=== PATIENT | female | born 1950 | race Caucasian/White ===

== ENCOUNTER 2025-09-06 08:23 | Outpatient (AMB) | payer MEDICARE, SELFPAY ==
--- OUTSIDE RECORDS SUMMARY | 2025-09-04 09:30 | XMS_ITS | Encounter Summary ---
Author Organization [facility] Address [address] [place] [address] Care Team Providers Care Mixing Picker Tender Name Role Phone Belem Diaz MD Primary Care Provider [phone] Gosia Gonzalez DO Unavailable Shruti Hu RN Unavailable Carson Vang MD Unavailable [phone] System, Provider Not In Unavailable Unavaila ble Reason for Visit * Reason Comments Other Dysphonia Encounter Details Date Type Department Care Team (Late st Contact Info) Description 09/04/2025 9:30 AM EST Office Visit [facility] [place] [address] [place] [address] Jimmie Boswell MD [address] [place] [address] Dysphonia (Primary Dx); Vocal cord [...] the original note were not included. [address] [facility] [address] Phone: [phone] Date of Encounter: 09/04/2025 History of Present [...] any meaningful improvement in her symptoms. Her printer maintainer Rx'd prednisone x 10 days back in [...] due to gag Procedures Flexible Laryngeal Videostroboscopy (19572): Laryngeal videostroboscopy is indicated to assess laryngeal [...] implementation of behavioral coughing/throat clearing suppression strategies. PERFUME COMPOUNDER voice evaluation and voice therapy are medically necessary for roman catholic of laryngeal function. She had a session in tandem with today's visit. She will follow up with me in about 3 week(s). All questions were answered, and the patient is in agreement with the above. Jimmie Boswell M.D. Laryngology [facility] documented in this encounter Plan of Treatment Not on file documented as of this encounter Goals Goal Patient Goal Type Associated Problems Recent Progress Patient-Stated? Author ST LTG 1 Speech Therapy Savita Raza, [facility]-PERFUME COMPOUNDER Note: Patient and clinician will facilitate changes in vocal function in order to restore functional use of voice for daily occupational, social, and emotional demands. Patient will maximize efficiency of the vocal mechanism relative to existing laryngeal disorder through coordinating subsystems of voice within 12 weeks as evidenced by patient report and PERFUME COMPOUNDER observations. Patient will improve coordination of respiration and phonation for efficient vocal production at a conversational level. Patient will implement and adhere to vocal hygiene protocols on a daily basis, including the elimination of phonotraumatic behaviors. ST STG 1 Speech Therapy Savita Raza [facility]-PERFUME COMPOUNDER Note: Patient will complete SOVT exercises and/or [...] laryngitis documented in this encounter Care Teams Mixing Picker Tender Relationship Specialty Start Date End Date Belem Diaz MD [address] [place] [address] PCP - General Internal Medicine 02/03/24 Gosia Gonzalez DO [address] [place] [address] [place] [address] Physician Gastroenterology 06/29/24 Shruti Ocasio RN [address] [place] [address] Nurse Navigator Surgery, Neurosurgery 04/18/25 Carson Vang MD [address] [address] Surgery, Neurosurgery 05/28/25 System, Provider Not In [address] [place] [address] Pulmonary Disease 05/28/25 documented as of this encounter
--- OUTSIDE RECORDS SUMMARY | 2025-09-04 10:00 | XMS_ITS | Encounter Summary ---
Author Organization [facility] Address [address] [place] [address] Care Team Providers Care Event Representative Name Role Phone Belem Diaz MD Primary Care Provider [phone] Gosia Gonzalez DO Unavailable Shruti Hu RN Unavailable [phone] Carson Vang MD Unavailable [phone] System, Provider Not In Unavailable Unavaila ble Reason for Visit * Reason Comments ST Evaluation * Evaluation and Treatment (Elective) - Authorized Specialty Diagnoses / Procedures Referred By Contact Referred To Contact Speech-Language Pathologist / Rehabilitation Diagnoses Dysphonia Khalida Boswell MD [address] [place] [address] Phone: tel:[phone] fax:[phone] [facility] [address] [place] [address] Phone: tel: fax: Referral ID Status Reason Start Date Expiration Date Visits Requested Visits Authorized [id number] Authorized Support Services 09/04/2025 10/30/2025 200 200 Encounter Details Date Type Department Care Team (Latest Contact Info) Description 09/04/2025 10:00 AM EST Evaluation [facility] [address] [place] [address] Khalida Boswell MD [address] [place] [address] Savita Boswell CCC-DETECTIVE LIEUTENANT CT Dysphonia (Primary Dx); Vocal fold edema; Chronic fungal laryngitis Social History Tobacco [...] PM EDT documented as of this encounter Miscellaneous Notes * Evaluation/ Progress Note - PRABHJOT RiceDETECTIVE LIEUTENANT - 09/04/2025 10:47 AM EST Speech Therapy Initial Evaluation Diagnoses ICD-10-CM 1. Dysphonia R49.0 2. 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 Chronic fungal laryngitis J37.0 B49 Interpretation Services: Communication Needs - TueSeptember 04, 2025 Row Name 0914 Communication Needs What is the patient's preferred language? 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 N Subjective - TueSeptember 04, 2025 Row Name Evaluation from 09/04/2025 in [facility] Subjective History Are you receiving any services at your home? no History of Present Illness Patient is a 75 y.o. female referred for voice evaluation by KHALIDA Hurt. She presents with complaints of persistent hoarseness which began suddenly about 3 months ago in association with a bad coughing illness. Patient also reported the following complaints/associated symptoms: vocal fatigue with prolonged use, coughing. She reports voice use, coughing as exacerbating factors and a cough suppressant alleviating factors. Smokin packs/day - quit in 1979. Reflux: yes - no longer using PPI as it stopped working. Date of Onset May 2025 Have you fallen in past year? 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 no Oral/Motor - TueSeptember 04, 2025 Row Name Evaluation from 09/04/2025 in [facility] Oral/Motor Labial ROM Within Functional Limits Labial Symmetry Within Functional Limits Labial Strength Within Functional Limits Labial Sensation Within Functional Limits Lingual ROM Within Functional Limits Lingual Symmetry Within Functional Limits Lingual Strength Within Functional Limits Lingual Sensation Within Functional Limits Velum Within Functional Limits Mandible Within Functional Limits Facial ROM Within Functional Limits Facial Symmetry Within Functional Limits Facial Strength Within Functional Limits Facial Sensation Within Functional Limits Dentition Adequate Dysarthria No Apraxia None present Intelligibility Intelligible Vocal Quality Exceptions to WFL Harsh Moderate Hoarse Moderate Voice - TueSeptember 04, 2025 Row Name Evaluation from 09/04/2025 in [facility] Voice History Chief Complaint Hoarseness, vocal fatigue, intermittent cough Onset of Present Illness Chronic;Acute Onset Sudden worsening in May though there had been some voice issues prior to then - recalls 2 previous sessions of voice therapy a few years ago Contributing Past Medical Hx Acid Reflux / GERD;Head / Neck Surgery Medications Contributing Yes Vocal Demands 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 Today's evaluation results are consistent with dx of moderate, severe dysphonia c/b roughness, strain secondary to vocal fold edema and chronic fungal laryngitis. CAPE-V -Overall score 09/04/2025: 53 -Quality: rough, strained, intermittent breaks -Volume: appropriate for age and gender identity -Pitch: appropriate for age and gender identity -Flexibility: diminished -Habitual respiratory pattern: breath holding Patient was modestly stimulable for improvement with use of confidential voice strategies, resonance targets higher than usual for her, and cough/throat clearing reduction strategies. Today's evaluation determined it is necessary for the patient to initiate speech language pathologyservices focusing on voice to improve overall vocal function in daily life. Based on patient's motivation, stimulability in today's session, and the patient's ability to attend sessions and complete a HEP, prognosis for improvement is good/fair. Recommend 4-8 sessions of voice/speech therapy over 12 weeks with a speech-language pathologist to optimize glottal postures for improved vocal function,vocal efficiency, and ease of phonation. Patient-reported outcomes Voice Handicap Index (VHI, Martins et al., 1997) Part I-F My voice makes it difficult to hear me. 2 People have difficulty understanding me in a noisy room. 2 My family has difficulty hearing me when I call them throughout the house. 0 I use the phone less often than I would like to. 3 I tend to avoid groups of people because of my voice. 3 I speak with friends, neighbors, or relatives less often because of my voice. 3 People ask me to repeat myself when speaking [id number]. 2 My voice difficulties restrict my personal and social life. 4 I feel left out of conversations because of my voice. 1 My voice problem causes me to lose income. 0 SUBTOTAL 20 Part II-P I run out of air when I talk. 1 The sound of my voice varies throughout the day. 3 People ask, What's wrong with your voice? 4 My voice sounds creaky and dry. 4 I feel as though I have to strain to produce voice. 4 The clarity of my voice is unpredictable. 4 I try to change my voice to sound different. 3 I use a great deal of effort to speak. 3 My voice is worse in the evening. 4 My voice gives out on me in the middle of speaking. 2 SUBTOTAL 32 Part III-E I am tense when talking to others because of my voice. 3 People seem irritated with my voice. 0 I find other people don't understand my voice problem. 2 My voice problem upsets me. 4 I am less outgoing because of my voice problem. 4 My voice makes me feel handicapped. 4 I feel annoyed when people ask me to repeat. 2 I feel embarrassed when people ask me to repeat. 2 My voice makes me feel incompetent. 0 I am ashamed of my voice problem. 2 SUBTOTAL 23 TOTAL 75 The VHI score is 75/120 indicating that they feel severely impacted by function of voice. Reflux Symptom Index Situation Response (0-5) 0 = No Problem 5 = Severe Problem Hoarseness or problem with your voice 5 Clearing your throat 5 Excess throat mucous or postnasal drip 5 Difficulty swallowing food, liquids or pills 1 Coughing after you ate or after lying down 3 Breathing difficulties or choking episodes 2 Troublesome or annoying cough 4 Sensations or something sticking in your throat 1 Heartburn, chest pain, indigestion, or stomach acid coming up 5 Total = 31 (RSI > 13 may be indicative of significant reflux disease) POC Details Precautions none Barriers to therapy no Special communication needs no Does patient require additional social and vocational services? no Prognosis Good DETECTIVE LIEUTENANT Interventions Voice;HEP;Patient Education Frequency 2x month Duration 12 weeks Goals Patient was involved in setting goals. Patient is aware of these goals, risks, benefit of thetreatment and alternatives along with being aware and understanding of the diagnosis and prognosis.The Patient agrees with the goals and treatment plan Certification start date 09/04/25 Certification end date 11/27/25 Goals (5 Years of Data) Speech Therapy ST LTG 1 Notes Patient and clinician will facilitate changes in vocal function in order to restore functional use of voice for daily occupational, social, and emotional demands. Patient will maximize efficiency of the vocal mechanism relative to existing laryngeal disorder through coordinating subsystems of voice within 12 weeks as evidenced by patient report and DETECTIVE LIEUTENANT observations. Patient will improve coordination of respiration and phonation for efficient vocal production at a conversational level. Patient will implement and adhere to vocal hygiene protocols on a daily basis, including the elimination of phonotraumatic behaviors. ST STG 1 Notes Patient will complete SOVT exercises and/or resonant-focused exercises 3-5x daily to strengthen andbalance the intrinsic laryngeal musculature and maximize glottic [...] larynx breathing protocols and voice hygiene protocols jethro daily basis. Treatment Performed: Interventions - TueSeptember 04, 2025 Row Name Evaluation from 09/04/2025 in [facility] DETECTIVE LIEUTENANT Intervention DETECTIVE LIEUTENANT Interventions Voice Home Exercise Program initiated Voice Voice Justification Pt would benefit from skilled voice therapy to improve vocal hygiene, respiratory support, and learn strategies to enhance functional voicing for vocational purposes. Vocal Intensity Training Pt provided with voice strategies to reduce volume/impact forces of the vocal folds through strategies to lift vocal resonance and pitch slightly. She noted this to feel easier in her throat during phonatory tasks. Vocal Hygiene Provided strategies for reducing coughing and throat clearing including little sip/hard swallow and open laryngeal breathing strategies. Vocal Function Exercise SOVT straw phonation noted to be moderately helpful in finding a slightly lifted voice resonance documented in this encounter Plan of Treatment Scheduled Referrals Name Type Priority Associated Diagnoses Order Schedule Ambulatory referral to Speech/Voice Therapy Outpatient Referral Routine Dysphonia Ordered: 08/29/2025 documented as of this encounter Goals Goal Patient Goal Type Associated Problems Recent Progress Patient-Stated? Author ST LTG 1 Speech Therapy No Savita Boswell CCC-DETECTIVE LIEUTENANT Note: Patient and clinician will facilitate changes in vocal function in order to restore functional use of voice for daily occupational, social, and emotional demands. Patient will maximize efficiency of the vocal mechanism relative to existing laryngeal disorder through coordinating subsystems of voice within 12 weeks as evidenced by patient report and DETECTIVE LIEUTENANT observations. Patient will improve coordination of respiration and phonation for efficient vocal production at a conversational level. Patient will implement and adhere to vocal hygiene protocols on a daily basis, including the elimination of phonotraumatic behaviors. ST STG 1 Speech Therapy Savita Raza, [facility]-DETECTIVE LIEUTENANT Note: Patient will complete SOVT exercises and/or [...] encounter Visit Diagnoses Diagnosis Dysphonia- Primary Vocal fold edema Edema of larynx Chronic fungal laryngitis documented in this encounter Care Teams Event Representative Relationship Specialty Start Date End Date Belem Diaz MD [address] [place] [id number] PCP - General Internal Medicine 02/03/24 Gosia Gonzalez DO [address] [place] [address] [place] [address] Physician Gastroenterology 06/29/24 Shruti Ocasio RN [address] [place] [address] Nurse Navigator Surgery, Neurosurgery 04/18/25 Carson Vang MD [address] [place] [id number] Surgery, Neurosurgery 05/28/25 System, Provider Not In [address] [place] [id number] Pulmonary Disease 05/28/25 documented as of this encounter
--- OUTSIDE RECORDS SUMMARY | 2025-09-04 13:40 | XMS_ITS | Encounter Summary ---
Author Organization [facility] Address [address] [place] [address] Care Team Providers Care Carpenter And Joiner Name Role Phone Belem Diaz MD Primary Care Provider [phone] Gosia Gonzalez DO Unavailable Shruti Hu RN Unavailable Carson Vang MD Unavailable [phone] System, Provider Not In Unavailable Unavaila ble Reason for Referral * Rehabilitation (Routine) - Authorized Specialty Diagnoses / Procedures Referred By Contac t Referred To Contact Physical Therapist Diagnoses S/P cervical spinal fusion Dina Dee, PA-C [address] [place] [address] [place] [address] Phone: tel: fax: Referral ID Status Reason Start Date Expiration Date Visits Requested Visits Authorized [id number] Authorized Support Services 09/04/2025 09/05/2026 1 1 Scheduling Instructions [facility] in [facility] [address] [facility] [address] [place], [place] [address] Question Answer Is this referral for an initial evaluation or additional visits? Initial evaulation Is this related to a Neurological Condition? Yes Is this referral for PT or OT? PT - cervical radiculopathy s/p ACDF C4-5. Work on BUE strengthening and biomechanics Comments S/p C4-5 ACDF [facility] PT in [address] [place] [address] Reason for Visit * Reason Comments Post-op Encounter Details Date Type Department Care Team (Late st Contact Info) Description 09/04/2025 1:40 PM EST Office Visit [facility] [id number] [address] [address] Dina Dee PA-C 85 [facility] [address] [place] [address] S/P cervical spinal fusion (Primary [...] ordered for 09/17/25 PT outpatient ([facility]) Advised to increase robaxin 750 mg 4 [...] times a day. 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 [...] Abduction (T1 - 5th digit) 5/5 Hand Proofer Black And White (C8) 5/5 Elbow extension (C7) 5/5 Elbow flexion / wrist extension (C6) 5/5 Deltoid Abduction (C5) LUE 5/5 Finger Abduction (T1 - 5th digit) 5/5 Hand Proofer Black And White (C8) 5/5 Elbow extension (C7) 5/5 Wrist [...] patient the following plan. 1- Refer to [facility] for CT guided left SI joint [...] in this encounter Plan of Treatment Scheduled Orders Name Type Priority Associated Diagnoses Orde r Schedule XR Cervical spine 2 or 3 views Imaging Routine S/P cervical spinal fusion Expected: 09/03/2025, Expires: 09/03/2026 Scheduled Referrals Name Type Priority Associated Diagnoses Orde r Schedule Amb Referral to Therapy Services (PT or OT) Outpatient Referral Routine S/P cervical spinal fusion Ordered: 09/04/2025 documented as of this encounter Goals Goal Patient Goal Type Associated Problems Recent Progress Patient-Stated? Author ST LTG 1 Speech Therapy Savita Raza CCC-[employer] Note: Patient and clinician will facilitate changes in vocal function in order to restore functional use of voice for daily occupational, social, and emotional demands. Patient will maximize efficiency of the vocal mechanism relative to existing laryngeal disorder through coordinating subsystems of voice within 12 weeks as evidenced by patient report and [employer] observations. Patient will improve coordination of respiration and phonation for efficient vocal production at a conversational level. Patient will implement and adhere to vocal hygiene protocols on a daily basis, including the elimination of phonotraumatic behaviors. ST STG 1 Speech Therapy Savita Raza CCC-[employer] Note: Patient will complete SOVT exercises and/or [...] as of this encounter Visit Diagnoses Diagnosis S/P cervical spinal fusion- Primary Arthrodesis status documented in this encounter Care Teams Carpenter And Joiner Relationship Specialty Start Date End Date Belem Diaz MD [address] [place] [address] PCP - General Internal Medicine 02/03/24 Gosia Gonzalez DO [address] [place] [address] [place] [address] Physician Gastroenterology 06/29/24 Shruti Ocasio RN 80 [place] [address] Nurse Navigator Surgery, Neurosurgery 04/18/25 Carson Vang MD [address] [place] [address] Surgery, Neurosurgery 05/28/25 System, Provider Not In [address] [place] [address] Pulmonary Disease 05/28/25 documented as of this encounter
--- OUTSIDE RECORDS SUMMARY | 2025-09-04 23:59 | XMS_ITS | Continuity of Care Document ---
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 [place] Date(s): 08/05/25 - 09/04/25 [facility] [address] [place] [id number]- Encounter Diagnosis Asthma, severe persistent(Discharge Diagnosis) - 08/06/25 Encounter Type: Triage Allergies, Adverse Reactions, Alerts Substance Criticality Severity Reaction Reaction Severity Status Mold Unknown Active Egg Allergy Unknown Active Immunizations Given and Recorded Vaccine Date Status Refusal Reason influenza virus vaccine, inactivated 08/12/24 Jeffrey rded influenza virus vaccine, inactivated 07/27/23 Jeffrey rded influenza virus vaccine, inactivated 09/22/22 Jeffrey rded influenza virus vaccine, inactivated 11/22/21 Jeffrey rded influenza virus vaccine, inactivated 1 08/01/20 Re corded influenza virus vaccine, inactivated 08/10/18 Jeffrey rded influenza virus vaccine, inactivated 08/05/17 Jeffrey rded influenza virus vaccine, inactivated 08/13/16 Jeffrey rded influenza virus vaccine, inactivated 07/20/15 Jeffrey rded tetanus/diphtheria/pertussis, acel(Tdap) 08/12/24 Recorded tetanus/diphtheria/pertussis, acel(Tdap) 2 04/17/20 Given SARS-CoV-2(COVID-19)mRNA-LNP vac([id number]) 07/01/24 Recorded SARS-CoV-2(COVID-19)mRNA-LNP vac([id number]) 03/09/24 Recorded SARS-CoV-2(COVID-19)mRNA-LNP vac([id number]) 08/06/23 Recorded RSV vaccine preF3, recombinant 08/20/23 Recorded pneumococcal 20-valent conjugate vaccine 07/26/23 Recorded [id number] 12y+ bivalent booster vax 07/23/22 Recorded pneumococcal 23-valent vaccine 04/23/22 Given SARS-CoV-2 (COVID-19) mRNA-1273 vaccine 03/12/22 R ecorded SARS-CoV-2 (COVID-19) mRNA-1273 vaccine 08/29/21 R ecorded SARS-CoV-2 (COVID-19) mRNA-1273 vaccine 01/16/21 R ecorded SARS-CoV-2 (COVID-19) mRNA-1273 vaccine 01/09/21 R ecorded zoster vaccine, inactivated 03/21/21 Recorded zoster vaccine, inactivated 3 10/11/20 Recorded pneumococcal 13-valent vaccine 4 08/01/20 Recorded 1Result Comment: GIVEN @ ALEJANDRO 2Result Comment: [id number] given w/out incident 3Result Comment: given @ alejandro 4Result Comment: GIVEN @ JUSTINDAMIAN Medications Albuterol (Eqv-ProAir HFA) 90 mcg/inh inhalation aerosol 2 puffs, Inhalation, Every 4 hours, PRN Wheezing/Shortness of Breath, j 45.40, # 3 each, 3 Refills,Maintenance, 08/06/25 9:01:00 AM EDT, [facility]/pharmacy #[id number], Partial fill upon patient request if the prescription is for a schedule II opioid drug., 2 puffs Inhalation Every 4 hours,PRN:Wheezing/Shortness of Breath,Instr:j 45.40, 164, cm, 07/26/25 10:06:00 EDT, Height, 58, kg, 11/16/24 10:29:00 EST, Dry Weight Start Date: 08/06/25 Status: Ordered Medication Dispense Status: Completed Quantity: 3.0 Unit: each Total Allowed Fills: 4 Fills Dispensed: 0 Indications: Severe persistent asthma, uncomplicated; albuterol 0.083% inhalation solution 3 mL = 2.5 mg, Inhalation, Every 6 hours, PRN for wheezing/shortness of breath, j45.40, # 360 mL, 11 Refills, Maintenance, 07/09/25 2:30:00 PM EDT, Solution, [facility]/pharmacy #1157, Partial fill upon patient request if the prescription is for a schedule II opioid drug., 164, cm, 07/09/25 13:56:00 EDT, Height, 58, kg, 11/16/24 10:29:00 EST, Dry Weight Start Date: 07/09/25 Status: Ordered Medication Dispense Status: Completed Quantity: 360.0 Unit: mL Total Allowed Fills: 12 Fills Dispensed: 0 arformoterol 15 mcg/2 mL inhalation solution 1 each, Neb, 2 times a day, J45.909 asthma BILL MEDICARE B PLEASE!, # 60 each, 5 Refills, Maintenance, 08/12/25 2:50:00 PM EDT, Solution, [facility]/pharmacy #1157, J45.909 asthma BILL MEDICARE B PLEASE!, 1each Neb 2 times a day,Instr:J45.909 asthma BILL MEDICARE B PLEASE!, 164, cm, 07/26/25 10:06:00 EDT, Height, 58, kg, 11/16/24 10:29:00 EST, Dry Weight Start Date: 08/12/25 Status: Ordered Medication Dispense Status: Completed Quantity: 60.0 Unit: each Total Allowed Fills: 6 Fills Dispensed: 0 Indications: Severe persistent asthma, uncomplicated; azelastine 137 mcg/inh (0.1%) nasal spray See Instructions, INSTILL 2 SPRAYS NARES, BOTH DAILY NEEDED ALLERGIES, # 30 Unknown, 11 Refills, Maintenance, 08/09/24 11:20:00 AM EDT, [id number], 30, INSTILL 2 SPRAYS NARES, BOTH DAILY ASNEEDED ALLERGIES, 164, cm, 08/01/24 11:38:00 EDT, Height, 56, kg, 05/11/24 8:54:00 EDT, Dry Weight Start Date: 08/09/24 Status: Ordered Medication Dispense Status: Completed Quantity: 30.0 Unit: Unknown Total Allowed Fills: 1 Fills Dispensed: 0 B2-400 = 400 mg, By Mouth, Daily, 0 Refills, Maintenance, 05/11/24 9:45:00 AM EDT, Partial fill upon patient request if the prescription is for a schedule II opioid drug. Start Date: 05/11/24 Status: Ordered Medication Dispense Status: Completed Total Allowed Fills: 1 Fills Dispensed: 0 budesonide 0.5 mg/2 mL inhalation suspension 0.5 mg, 2, mL, Neb, 2 times a day, J45.909 asthma BILL MEDICARE B PLEASE!, # 120 mL, Refills 5, Tot. Refills 5, Maintenance, 08/12/25 2:55:00 PM EDT, Suspension, Route to Pharmacy Electronically, [id number], [facility]/pharmacy #[id number], 164, cm, 07/26/25 10:06:00 EDT, Height, 58, kg, 11/16/24 10:29:00 EST, Dry Weight Start Date: 08/12/25 Status: Ordered Medication Dispense Status: Completed Quantity: 120.0 Unit: mL Total Allowed Fills: 6 Fills Dispensed: 0 Indications: Severe persistent asthma, uncomplicated; Unspecified asthma, uncomplicated; Calcium Citrate By Mouth, 2 times a day, 0 Refills, Maintenance, 11/16/24 10:38:00 AM EST, Partial fill upon patientrequest if the prescription is for a schedule II opioid drug. Start Date: 11/16/24 Status: Ordered Medication Dispense Status: Completed Total Allowed Fills: 1 Fills Dispensed: 0 Dupixent 0 Refills, Maintenance, 05/11/24 9:40:00 AM EDT, Partial fill upon patient request if the prescription is for a schedule II opioid drug. Start Date: 05/11/24 Status: Ordered Medication Dispense Status: Completed Total Allowed Fills: 1 Fills Dispensed: 0 Dupixent Pre-filled Pen 300 mg/2 mL subcutaneous solution 4 mL, 0 Refill(s), 0 Refills, 05/22/24 3:48:00 PM EDT, Partial fill upon patient request if the prescription is for a schedule II opioid drug. Start Date: 05/22/24 Status: Ordered Medication Dispense Status: Completed Total Allowed Fills: 1 Fills Dispensed: 0 estradiol 0.05 mg/24 hours twice weekly transdermal film, extended release 1 patch, Topically, Every Tuesday and , apply to skin, # 26 patch, 0 Refills, Maintenance, 06/10/25 12:20:00 PM EDT, [facility]/pharmacy #1157, Partial fill upon patient request if the prescription isfor a schedule II opioid drug., 164, cm, 03/21/25 8:58:00 EDT, Height, 58, kg, 11/16/24 10:29:00 EST, Dry Weight Start Date: 06/10/25 Stop Date: 09/08/25 Status: Ordered Medication Dispense Status: Completed Quantity: 26.0 Unit: patch Total Allowed Fills: 1 Fills Dispensed: 0 Fish Oil By Mouth, 0 Refills, Maintenance, 11/16/24 10:39:00 AM EST, Partial fill upon patient request if theprescription is for a schedule II opioid drug. Start Date: 11/16/24 Status: Ordered Medication Dispense Status: Completed Total Allowed Fills: 1 Fills Dispensed: 0 hydrocortisone 2.5% topical cream 1 application, Topically, 2 times a day, # 28 Gm, 0 Refills, Maintenance, 01/09/24 10:07:00 AM EDT, Cream, Partial fill upon patient request if the prescription is for a schedule II opioid drug. Start Date: 01/09/24 Status: Ordered Medication Dispense Status: Completed Quantity: 28.0 Unit: g Total Allowed Fills: 1 Fills Dispensed: 0 ipratropium nasal 42 mcg/inh spray 0 Refills, Maintenance, 08/11/23 4:31:00 PM EDT, Partial fill upon patient request if the prescription is for a schedule II opioid drug. Start Date: 08/11/23 Status: Ordered Medication Dispense Status: Completed Total Allowed Fills: 1 Fills Dispensed: 0 latanoprost 0.005% ophthalmic solution 1 drops, Eyes, Both, Daily in PM, # 2.5 mL, 0 Refills, Maintenance, 08/10/24 2:01:00 PM EDT, Solution, Partial fill upon patient request if the prescription is for a schedule II opioid drug. Start Date: 08/10/24 Status: Ordered Medication Dispense Status: Completed Quantity: 2.5 Unit: mL Total Allowed Fills: 1 Fills Dispensed: 0 levocetirizine 5 mg oral tablet 1 tablet = 5 mg, By Mouth, Daily in PM, Maintenance, 01/04/25 12:51:00 PM EST, Tablet, Partial fill upon patient request if the prescription is for a schedule II opioid drug. Start Date: 01/04/25 Status: Ordered Medication Dispense Status: Completed Total Allowed Fills: 1 Fills Dispensed: 0 lidocaine 5% topical ointment 1 application, Topically, 3 times a day, # 50 Gm, 2 Refills, Maintenance, 01/30/25 3:08:00 PM EDT, Ointment, [facility]/pharmacy #1157, Partial fill upon patient request if the prescription is for a schedule II opioid drug., 1 application Topically 3 times a day, 164, cm, 01/04/25 9:45:00 EST, Height, 58, kg, 11/16/24 10:29:00 EST, Dry Weight Start Date: 01/30/25 Status: Ordered Medication Dispense Status: Completed Quantity: 50.0 Unit: g Total Allowed Fills: 3 Fills Dispensed: 0 Lidoderm 5% film 1 patch, Topically, Daily, remove patches after 12 hours, # 30 patch, 5 Refills, Maintenance, 11/16/24 10:35:00 AM EST, Film, [facility]/pharmacy #1157, Partial fill upon patient request if the prescription is for a schedule II opioid drug., 1 patch Topically Daily,Instr:remove patches after 12 hours, 164,cm, 11/16/24 10:29:00 EST, Height, 58, kg, 11/16/24 10:29:00 EST, Dry Weight Start Date: 11/16/24 Status: Ordered Medication Dispense Status: Completed Quantity: 30.0 Unit: patch Total Allowed Fills: 6 Fills Dispensed: 0 magnesium glycinate 200 mg oral tablet 2 tablet = 400 mg, By Mouth, 0 Refills, Maintenance, 01/20/23 3:34:00 PM EDT, Partial fill upon patient request if the prescription is for a schedule II opioid drug. Start Date: 01/20/23 Status: Ordered Medication Dispense Status: Completed Total Allowed Fills: 1 Fills Dispensed: 0 medroxyPROGESTERone 2.5 mg oral tablet See Instructions, TAKE 1 TABLET BY MOUTH EVERY DAY, # 90 tablet, Refills 3, Tot. Refills 3, Maintenance, 10/10/24 1:04:00 PM EST, Instructions Replace Required Details, Route to Pharmacy Electronically, [facility]/pharmacy #[id number], 164, cm, 09/12/24 13:22:00 EST, Height, 57.5, kg, 08/17/24 7:49:00 EDT, Dry Weight Start Date: 10/10/24 Status: Ordered Medication Dispense Status: Completed Quantity: 90.0 Unit: tablet Total Allowed Fills: 4 Fills Dispensed: 0 MiraLax oral powder for reconstitution = 17 Gm, By Mouth, Daily, PRN Constipation, dissolve in water before taking, # 255 Gm, 0 Refills, Maintenance, 04/23/22 9:29:00 AM EDT, REC Powder, Partial fill upon patient request if the prescription is for a schedule II opioid drug. Start Date: 04/23/22 Status: Ordered Medication Dispense Status: Completed Quantity: 255.0 Unit: g Total Allowed Fills: 1 Fills Dispensed: 0 montelukast 10 mg oral tablet 10 mg, 1, tablet, By Mouth, Daily, # 90 tablet, Refills 1, Tot. Refills 1, Maintenance, 05/21/25 8:17:00 AM EDT, Route to Pharmacy Electronically, [facility]/pharmacy #[id number], Partial fill upon patient requestif the prescription is for a schedule II opioid drug., 164, cm, 03/21/25 8:58:00 EDT, Height, 58, kg, 11/16/24 10:29:00 EST, Dry Weight Start Date: 05/21/25 Status: Ordered Medication Dispense Status: Completed Quantity: 90.0 Unit: tablet Total Allowed Fills: 2 Fills Dispensed: 0 Nebulizer/Compressor See Instructions, # 1 each, Refills 11, Tot. Refills 11, Maintenance, Nebulizer Machine A7003 Neb Disp Set A7014 Neb non-Disp Filter A7005 Neb Non-Disp set A7015 Aerosol Mask A7013 Neb Disp Filter length of need lifetime 99 months for home use Dx, 07/10/25 7:15:00 PM EDT, Supply Start Date: 07/10/25 Status: Ordered Medication Dispense Status: Completed Quantity: 1.0 Unit: each Total Allowed Fills: 12 Fills Dispensed: 0 Probiotic Formula By Mouth, Daily, 0 Refills, Maintenance, 01/20/23 3:34:00 PM EDT, Partial fill upon patient request if the prescription is for a schedule II opioid drug. Start Date: 01/20/23 Status: Ordered Medication Dispense Status: Completed Total Allowed Fills: 1 Fills Dispensed: 0 Pseudoephedrine By Mouth, 30-60mg once daily PRN, 0 Refills, Maintenance, 05/11/24 9:54:00 AM EDT, Partial fill uponpatient request if the prescription is for a schedule II opioid drug. Start Date: 05/11/24 Status: Ordered Medication Dispense Status: Completed Total Allowed Fills: 1 Fills Dispensed: 0 Senna By Mouth, 0 Refills, Maintenance, 09/07/24 10:21:00 AM EST, Partial fill upon patient request if theprescription is for a schedule II opioid drug. Start Date: 09/07/24 Status: Ordered Medication Dispense Status: Completed Total Allowed Fills: 1 Fills Dispensed: 0 traMADol 50 mg oral tablet 1 tablet = 50 mg, By Mouth, 2 times a day, PRN as needed for pain, # 14 tablet, 1 Refills, Maintenance, 11/16/24 10:42:00 AM EST, Tablet, [facility]/pharmacy #1157, Partial fill upon patient request if the prescription is for a schedule II opioid drug., 164, cm, 11/16/24 10:29:00 EST, Height, 58, kg, 11/16/24 10:29:00 EST, Dry Weight Start Date: 11/16/24 Stop Date: 11/30/24 Status: Ordered Medication Dispense Status: Completed Quantity: 14.0 Unit: tablet Total Allowed Fills: 2 Fills Dispensed: 0 traZODone 50 mg oral tablet See Instructions, TAKE 1 TABLET MOUTH DAILY AT BEDTIME, # 135 tablet, Refills 0, Tot. Refills 0, Maintenance, 07/09/25 8:40:00 PM EDT, Instructions Replace Required Details, Route to Pharmacy Electronically, [facility]/pharmacy #[id number], 164, cm, 07/09/25 13:56:00 EDT, Height, 58, kg, 11/16/24 10:29:00 EST, Dry Weight Start Date: 07/09/25 Status: Ordered Medication Dispense Status: Completed Quantity: 135.0 Unit: tablet Total Allowed Fills: 1 Fills Dispensed: 0 Voltaren 1% topical gel = 2 Gm, Topically, 4 times a day, PRN back pain, not to exceed 32 grams/day, # 240 Gm, 11 Refills, Maintenance, 04/23/22 9:23:00 AM EDT, [facility]/pharmacy #1157, pu ton file, 2 Gm Topically 4 times a day,PRN:back pain,Instr:not to exceed 32 grams/day, 165.1, cm, 04/23/22 8:48:00 EDT, Height, 62.5, kg, 02/22/22 13:27:00 EDT, Dry Weight Start Date: 04/23/22 Status: Ordered Medication Dispense Status: Completed Quantity: 240.0 Unit: g Total Allowed Fills: 12 Fills Dispensed: 0 wheat dextrin = 6 Gm, By Mouth, Daily, 0 Refills, Maintenance, 01/20/23 3:33:00 PM EDT, Partial fill upon patient request if the prescription is for a schedule II opioid drug. Start Date: 01/20/23 Status: Ordered Medication Dispense Status: Completed Total Allowed Fills: 1 Fills Dispensed: 0 Wixela Inhub 500 mcg-50 mcg inhalation powder 1 puffs, Inhalation, 2 times a day, AND THROAT AFTER USE., # 60 each, 11 Refills, Maintenance, 01/14/25 8:53:00 AM EDT, [id number], 30, 1 PUFFS INHALATION 2 TIMES A DAY, RINSE MOUTH AND THROAT AFTER USE, 164, cm, 01/04/25 9:45:00 EST, Height, 58, kg, 11/16/24 10:29:00 EST, Dry Weight Start Date: 01/14/25 Status: Ordered Medication Dispense Status: Completed Quantity: 60.0 Unit: each Total Allowed Fills: 1 Fills Dispensed: 0 Yuvafem 10 mcg vaginal insert See Instructions, Insert 1 tablet vaginally two times per week at bedtime, # 24 tablet, 4 Refills, Maintenance, 06/05/25 4:05:00 PM EDT, [facility]/pharmacy #1157, Partial fill upon patient request if the prescription is for a schedule II opioid drug., Insert 1 tablet vaginally two times per week at bedtime, 164, cm, 03/21/25 8:58:00 EDT, Height, 58, kg, 11/16/24 10:29:00 EST, Dry Weight Start Date: 06/05/25 Status: Ordered Medication Dispense Status: Completed Quantity: 24.0 Unit: tablet Total Allowed Fills: 5 Fills Dispensed: 0 Yuvafem 10 mcg vaginal tablet See Instructions, INSERT 1 TABLET VAGINALLY 2 TIMES A WEEK AT BEDTIME, # 24 tablet, 4 Refills, Maintenance, 04/12/24 1:58:00 PM EDT, [facility]/pharmacy #1157, 164, cm, 04/12/24 13:32:00 EDT, Height, 58.8, kg, 02/20/24 8:22:00 EDT, Dry Weight Start Date: 04/12/24 Status: Ordered Medication Dispense Status: Completed Quantity: 24.0 Unit: tablet Total Allowed Fills: 5 Fills Dispensed: 0 Problem List Condition Confirmation Course Effective Dates Status H ealth Status Informant Anxiety Confirmed Active Cervical radiculopathy Confirmed Active Chronic back pain Confirmed Active Chronic Pain Syndrome Confirmed Active Chronic sinus infection Confirmed Active Chronic sinusitis Confirmed Active DDD (degenerative disc disease), lumbar Confirmed Active Depression Confirmed Active Hormone replacement therapy Confirmed Active Fatigue Confirmed Active Gastroesophageal reflux disease Confirmed Active Hoarseness Confirmed Active Back injury Confirmed Active Laryngitis Confirmed Active 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 Memory change Confirmed Active Mild depressive episode Confirmed Active Major depression Confirmed Active Multiple pulmonary nodules Confirmed Active TRICIA (obstructive sleep apnea) Confirmed Active Osteoarthritis Confirmed Active Osteopenia Confirmed Active Routine medical exam Confirmed Active Allergic rhinitis, perennial Confirmed Active Pneumonia Confirmed Active Polyuria Confirmed Active Asthma, severe persistent Confirmed Active Shoulder pain, left Confirmed Active Uterine fibroid Confirmed Active Vertigo Confirmed Active Vulvovaginal dryness Confirmed Active Diagnosis Diagnosis Type Effective Dates Health Status Clinical Service Informant Asthma, severe persistent Discharge Diagnosis 08/06/25 Non-Specified Social History Social History Type Response Sexual Sexually involved in last 6 months: No. Gender identity: Identifies as female. Preferred pronoun: She/her. Smoking Status Former smoker, quit more than 30 days ago entered on: 08/15/24 Sex Female Sex Representation Female (finding) Patient Care team information Care Team Personnel Name: Delfina Haro MD, Jimmie Thayer Position: S Physician - Primary Care Member Role: PCP Address: [address] [place] [address] Telecom: Care Team Related Persons Name: NATALIE, ARELY Name: SHAYLEE LINO Name: MARIA INES SOTELO Insurance Providers Guarantor name: GUILLERMINA ESTRADA Health Plan Information #: 1 Payer: [employer] [facility] PPO Payer Identifier: NA Member Number: [id number] Group Number: [id number] Subscriber Identifier: NA Relationship to Subscriber: self Coverage Type: Medicare PPO Coverage Verification Date: NA Telecom: NA Address: NA Health Plan Information #: 2 Payer: [employer] Payer Identifier: NA Member Number: [id number] Group Number: [id number] Subscriber Identifier: NA Relationship to Subscriber: self Coverage Type: MEDICAID Coverage Verification Date: NA Telecom: Address: NA
--- NOTE | 2025-09-06 08:26 | A.OFFPC_ITS ---
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 Required: No Accompanied by: Self / Same As Patient Allergies No Known Allergies Allergy (Verified 09/06/25 08:32) Medication List - Last Reconciled 09/06/25 by Belem Diaz MD acetaminophen 1,000 mg PO Q6H PRN albuterol sulfate 90 mcg/actuation 2 puffs inhalation Q4H PRN albuterol sulfate 2.5 mg inhalation Q6H PRN azelastine 2 sprays intranasal DAILY PRN benzonatate 200 mg PO BID PRN budesonide 0.5 mg inhalation BID dextromethorphan-guaifenesin 60-1,200 mg ER (Mucinex DM) 1 tab PO Q12H diclofenac sodium 1% (Voltaren Arthritis Pain) 4 grams topical QID estradiol 1 patch transdermal 2XW famotidine-Ca carb-mag hydrox 10-800-165 mg (Pepcid Complete) 1 tab PO DAILY PRN fluconazole 100 mg PO DAILY ipratropium bromide 1 - 2 sprays intranasal DAILY lactobacillus combination no.9 (Adult 50 Plus Probiotic) 4,000 mmu cells PO DAILY latanoprost 0.005% 1 drp ophthalmic (eye) BEDTIME levocetirizine 5 mg PO DAILY magnesium glycinate mg PO medroxyprogesterone 2.5 mg PO DAILY methocarbamol 750 mg PO QID montelukast 10 mg PO DAILY multivitamin 1 tab PO DAILY polyethylene glycol 3350 (Miralax) 17 grams PO DAILY pseudoephedrine HCl 60 mg PO Q4-6H PRN tramadol 50 mg PO trazodone 50 mg PO BEDTIME vitamin B complex 1 tab PO DAILY wheat dextrin 1.5 grams PO BID Tobacco use date assessed: 09/06/25 Fall risk assessment: 1 Fall in past year Last assessed Fall Risk: 09/06/25 Dental Screening Dental Screen Date: 09/06/25 Did you have a dental visit in the last 12 months?: Yes Did you have a dental problem in the last 6 months where you did not have access to dental care?: No Was dental information given to patient?: Patient has dentist HPI HPI Comments History of Present Illness Details The patient is a 75-year-old female [facility] and for physical GERD: History of GERD; stable Pulmonary Nodules: Stable nodules observed; await next CT in December 2025, Dr. Redman at [facility] is radiation protection engineer. Cervical Spine Issues: Recent pain post neck surgery after lifting groceries; follow-up planned at [facility] with Dr. Vang. Lumbar Spine Pain: Persistent pain; established with supply chain specialist at [facility] Fungal Laryngitis: Under extended fluconazole treatment by ENT Dr. Jimmie Boswell at [facility]. Anxiety/depression: Exacerbated by health and situational stress however, managing as best she can. Allergies: Undergoing immunotherapy with Dr. Archer Recent Surgical History: - Cervical spine surgery by Dr. Vang Social History: - No alcohol consumption reported Family History Includes but is not limited to: - Brother with Atrial Fibrillation (AFib ) Diagnostic Results: - Negative nasopharyngeal and throat swa bs for infectious etiologies Health Maintenance obtain records for preventive screenings done at [facility] pt notes all vaccinations are up to date Review of Systems - Respiratory: Reports no change in pulm onary nodules. - Gastrointestinal: per hpi - Neurological: Denies current deficits post cervical spine surgery. - Endocrine: Denies new concerns. - Psychiatric: per hpi - Musculoskeletal: Reports chronic hip a nd lumbar spine pain. Physical Exam - HEENT- Normal tympanic membranes, uvu la presents no redness. EOMI, PERRL - Respiratory- Lungs clear with no wheez ing noted. - Cardiovascular-soft murmur present, no rmal s1, s2 - Gastrointestinal- Abdomen soft with no rmoactive bowel sounds. No tenderness. 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 - Neurological- AOX3 Assessment and Plan 1. GERD - Monitor and evaluate as needed. 2. Pulmonary Nodules - Follow-up CT scan with [facility] in 3. Cervical Spine - Surgical follow-up; pain precaution ad vised. 4. Lumbar Spine Pain - Ongoing follow up with Dr. Vang 5. Fungal Laryngitis - Complete fluconazole course; monitor l iver function tests. 7. Anxiety - continue to monitor. 8. Allergies - Continue immunotherapy. Follow up in 4 months Discussion Notes I discussed with the patient her current diagnoses and management plans for each condition. We talked about the stability of her pulmonary nodules with no change noted on recent CT scans per pulmonology. We discussed discontinuing heavy lifting, as it exacerbates her cervical spine pain. The patient was advised to complete the antifungal course for fungal laryngitis as directed by ENT and monitor liver functions due to prolonged fluconazole use. Patient Instructions - Continue taking methocarbamol and tram adol as prescribed for pain. - Avoid lifting heavy objects to reduce risk of cervical spine pain exacerbation. - Complete the full course of fluconazol e and get liver function tests as advised. - Follow up with scheduled CT scan for p ulmonary nodules. - Keep using your nebulizer as directed. - Continue allergy shots according to ia addy. - Manage stress and anxiety with proper support [facility] Medical History (Updated 09/06/25 @ 12:53 by eBlem Diaz MD) Chronic fungal laryngitis Routine medical exam Osteopenia Lung nodule GERD (gastroesophageal reflux disease) Depression Allergic rhinitis Anxiety Cervical radiculopathy Asthma Obstructive sleep apnea Surgical History (Updated 09/06/25 @ 08:35 by Belem Diaz MD) H/O Spinal surgery History of hip surgery H/O cervical spine surgery Hx of tonsillectomy H/O rotator cuff surgery History of colonoscopy (~01/08/20) Family History (Updated 09/06/25 @ 08:36 by Belem Diaz MD) Father Alcoholism Mother Stroke Osteoporosis Bladder cancer Social History Housing: House Patient Tobacco Use Status: Former Tobacco user Years Smoked: 11 years e-Cigarette/Vaping Use: Never Used Current occupational status: employed 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 1. Little interest or pleasure in doing things: several days 2. Feeling down, depressed, or hopeless: several days 3. Trouble falling or staying asleep, or sleeping too much: not at all 4. Feeling tired or having little energy: several days 5. Poor appetite or overeating: several days 6. Feeling bad about yourself - or that you are a failure or have let yourself or your family down: not at all 7. Trouble concentrating on things, such as reading the newspaper or watching television: several days 8. Moving or speaking so slowly that other people could have noticed. Or the opposite - being so fidgety or restless that you have been moving around a lot more than usual: not at all 9. Thoughts that you would be better off or of hurting yourself in some way: not at all Total score: 5 13904 - PHQ-9 Billing: Yes Source: Developed by Drs. Adilson Isaac, Jessica Mak, Bryan Vizcarra and colleagues, with an educational denia from [employer]. Thrive Questionnaire Date Thrive assessed: 09/06/25 I am a: Patient What is your living situation today?: I have a steady place to live Within the past 12 months, did the food you bought not last and you didn't have the money to get more?: Never true Within the past 12 months, did you worry whether your food would run out before you got money to buy more?: Never true Do you have trouble paying for medicines?: No Do you have trouble getting transportation to medical appointments?: No Do you have trouble paying your heating and electricity bill?: No Do you have trouble taking care of your child, family member or friend?: No Do you have trouble with day-to-day activities such as bathing, preparing meals, shopping, managing finances, etc.?: No Are you currently unemployed and looking for a job?: No Are you interested in more education?: No Please select the resources that you would like help with: None THRIVE Score: 0 AUDIT C Alcohol Use Questionnaire (AUDIT-C) 1. How often do you have a drink containing alcohol?: Monthly or less 2. How many drinks containing alcohol do you have on a typical day when you are drinking?: 1 or 2 3. How often do you have six or more drinks on one occasion?: Never Total Score: 1 LUCINDA-7 AMB Questionnaire LUCINDA-7 Date LUCINDA - 7 assessed: 09/06/25 Feeling nervous, anxious, or on edge: 3 = Nearly every day Not being able to stop or control worryin = Nearly every day Worrying too much about different things: 3 = Nearly every day Trouble relaxin = More than half the days Being so restless that it is hard to sit still: 0 = Not at all Becoming easily annoyed or irritable: 1 = Several days Feeling afraid as if something awful might happen: 3 = Nearly every day Total LUCINDA-7 score (0-4 normal; 5-9 mild; 10-14 moderate; 15-21 severe): 15 Source: Developed by Drs. Adilson Isaac, Jessica Mak, Bryan Vizcarra and colleagues, with an educational denia from [employer]. Physical exam (Primary Care) Vital Signs: Last Vital Signs Temp 97.1 F 09/06/25 08:30 Pulse 74 09/06/25 08:30 Resp 16 09/06/25 08:30 BP 104/62 09/06/25 08:30 Pulse Ox 96 09/06/25 08:30 Oxygen Delivery Method Room Air 09/06/25 08:30 BMI result Body Mass Index 20.8 Tobacco/Smoking Status: Tobacco use Status Tobacco use date assessed 09/06/25 09/06/25 08:29 Patient Tobacco Use Status Former Tobacco user 09/06/25 08:44 e-Cigarette/Vaping Use Never Used 09/06/25 08:44 PHQ-9: PHQ-9 Score PHQ-9: Total score 5 09/06/25 08:44 Thrive Assessment: Date of Thrive Assessment Date Thrive assessed 09/06/25 09/06/25 08:44 Coding Level of Care Code Est Pt Prev Care >65y(52186) Diagnoses Routine medical exam Z00.00 Anxiety F41.9 Depression F32.A GERD (gastroesophageal reflux disease) K21.9 Cervical radiculopathy M54.12 Additional Codes PHQ-9 - 85070 - PHQ-9 Billing: Yes ([id number]) Assessment & Plan Assessment & Plan (1) Routine medical exam: Code(s): Z00.00 - Encounter for general adult medical examination without abnormal findings Category: Medical (2) Anxiety: Code(s): F41.9 - Anxiety disorder, unspecified Category: Medical (3) Depression: Code(s): F32.A - Depression, unspecified Category: Medical (4) GERD (gastroesophageal reflux disease): Code(s): K21.9 - Gastro-esophageal reflux disease without esophagitis Category: Medical (5) Cervical radiculopathy: Code(s): M54.12 - Radiculopathy, cervical region Category: Medical Plan - Implement preventative strategies for cervical spine issues post-surgery. - Complete antifungal treatment and monitor liver function. - Manage anxiety with existing medication. - Continue allergy management via immunotherapy. - Follow up in 4 months Orders: Orders Comprehensive Met. Panel Today Z00.00 - Encounter for general adult medical examination without abnormal findings Complete Blood Count Auto Diff Today Z00.00 - Encounter for general adult medical examination without abnormal findings Lipid Panel Today Z00.00 - Encounter for general adult medical examination without abnormal findings
[2025-09-06 08:30] VITALS: BP 104/62; PULSE 74; RESP 16; TEMP 36.2; O2SAT 96; BMI 20.8
--- OUTSIDE RECORDS SUMMARY | 2025-09-06 08:54 | XMS_ITS | Patient Health Record ---
Author Organization [facility] Address [address] [place] [address] [place] [address] Care Team Providers Care Signaler Name Role Phone Rafal Seaman Primary Care Provider Unavailsaul lynch Rafal Seaman Unavailable [phone] Reason For Referral No Information Medications Medication SIG (Take, Route, Frequency, Duration) Notes Start Date End Date Status Fluticasone Propionate 50 MCG/ACT 1 spray in each nostril Nasally Once a day; Duration: 30 day(s) 10/04/2013 Active Montelukast Sodium 10 MG 1 tablet in the evening Orally Once a day; Duration: 30 day(s) 10/04/2013 Active Advair Diskus-250 250/50 1 Inhalation ev lavell 12 hrs; Duration: 30 days 10/04/2013 Active Problems Problem Type SNOMED Code ICD Code Onset Dates Problem Status W/U Status Risk Notes Problem Allergic rhinitis (00162969) Allergic rhinitis, cause unspecified (477.9) Active confirmed Problem Asthma (disorder) (606725230) Asthma, unspecified, unspecified status (493.90) Active confirmed 2 Problem Gastroesophageal reflux disease (423619913) GERD (530.81) Active confirmed 2 Problem 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) (755.63) Active confirmed Problem Depression (812103694) Depression (311) Active confirmed Problem Hyperlipidemia (18147721) Hyperlipidemia (272.4) Active confirmed 2 Plan Of Treatment Pending Test Test Name Order Date TSH 10/04/2013 BASIC METABOLIC PANEL W/EGFR 10/04/2013 CALCIUM 10/04/2013 HOMOCYSTEINE, CARDIOVASCULAR 10/04/2013 LIPID PANEL 10/04/2013 MAGNESIUM 10/04/2013 PHOSPHATE ( PHOSPHORUS) 10/04/2013 PTH, INTACT 10/04/2013 CRP 10/04/2013 CBC W/ DIFF 10/04/2013 Insurance Providers Payer Name Payer Address Payer Phone Subscriber Number Group Number Insured Name Patient Relationship to Insured Coverage Start Date Coverage End Date [address] [address] [id number] GUILLERMINA ESTRADA Self - patient is the insured Medical (General) History Medical History History ICD Code Esophageal reflux H.pylori infection treated. Cervical fusion anterior Cervical fusion posterior Depression Rotator cuff tear LT Asthma Seasonal allergies
--- OUTSIDE RECORDS SUMMARY | 2025-09-06 08:54 | XMS_ITS | Encounter Summary ---
Author Organization [facility] Address [address] [place] [address] Care Team Providers Care Splunk Developer Name Role Phone Belem Diaz MD Primary Care Provider [phone] Gosia Gonzalez DO Unavailable Shruti Hu RN Unavailable Carson Vang MD Unavailable [phone] System, Provider Not In Unavailable Unavaila ble Encounter Details Date Type Department Care Team (Latest Contact Info) Description 09/04/2025 Travel Social History Tobacco Use Types Packs/Day Years [...] PM EDT documented as of this encounter Plan of Treatment Not on file documented as of this encounter Goals Goal Patient Goal Type Associated Problems Recent Progress Patient-Stated? Author ST LTG 1 Speech Therapy No Savita Boswell, [facility] GENERAL MANAGER Note: Patient and clinician will facilitate changes in vocal function in order to restore functional use of voice for daily occupational, social, and emotional demands. Patient will maximize efficiency of the vocal mechanism relative to existing laryngeal disorder through coordinating subsystems of voice within 12 weeks as evidenced by patient report and FOOD GENERAL MANAGER observations. Patient will improve coordination of respiration and phonation for efficient vocal production at a conversational level. Patient will implement and adhere to vocal hygiene protocols on a daily basis, including the elimination of phonotraumatic behaviors. ST STG 1 Speech Therapy Savita Raza, [facility] [facility] MANAGER Note: Patient will complete SOVT exercises and/or [...] documented as of this encounter Visit Diagnoses Not on filedocumented in this encounter Care Teams Splunk Developer Relationship Specialty Start Date End Date Belem Diaz MD [address] [place] [address] PCP - General Internal Medicine 02/03/24 Gosia Gonzalez DO [address] [facility] [facility] [place] [address] Physician Gastroenterology 06/29/24 Shruti Ocasio, RN [address] [place] [address] Nurse Navigator Surgery, Neurosurgery 04/18/25 Carson Vang MD [address] [address] Surgery, Neurosurgery 05/28/25 System, Provider Not In [address] [place] [id number] Pulmonary Disease 05/28/25 documented as of this encounter
--- OUTSIDE RECORDS SUMMARY | 2025-09-06 08:54 | XMS_ITS ---
Author Name [facility] Organization Unknown Results Test Name/Text Value Interpretation Date Range Source Result Not Detected 07/27/2025 - [facility] Hgb A1c MFr Bld 5.4 % 07/27/2025 - 5.[address] Est. average glucose Bld gHb Est-mCnc 108.0 mg/dL 07/27/2025 [facility] Bilirub SerPl-mCnc 0.2 mg/dL 07/26/2025 0.2 - 1 [facility] ALT SerPl-cCnc 27.0 U/L 07/26/2025 10 - 50 [facility] T Albumin/Glob SerPl 1.4 Ratio 07/26/2025 1 - 3 [facility] Prot SerPl-mCnc 6.9 g/dL 07/26/2025 6.3 - 8.[address] Glucose SerPl-mCnc 88.0 mg/dL 07/26/2025 65 - 99 [facility] Calcium SerPl-mCnc 9.2 mg/dL 07/26/2025 8.7 - 10.5 [facility] Globulin Ser Calc-mCnc 2.9 g/dL 07/26/2025 1.5 - 3.9 [facility] Chloride SerPl-sCnc 103.0 mmol/L 07/26/2025 98 - 1 07 [facility] Creat SerPl-mCnc 0.89 mg/dL 07/26/2025 0.4 - 1.1 H [facility] BUN/Creat SerPl 21.0 Ratio 07/26/2025 10 - 25 [facility] Anion Gap Bld-sCnc 12.0 07/26/2025 7 - 17 [facility] Potassium SerPl-sCnc 3.8 mmol/L 07/26/2025 3.4 - 5 .3 [facility] AST SerPl-cCnc 33.0 U/L 07/26/2025 10 - 50 [facility] T GFR/BSA.pred SerPlBld PEA-LXW-ZgBNwd 68.0 07/26/2025 59 - [facility] ALP SerPl-cCnc 71.0 U/L 07/26/2025 32 - 122 [facility] T BUN SerPl-mCnc 19.0 mg/dL 07/26/2025 8 - [address] CO2 SerPl-sCnc 25.0 mmol/L 07/26/2025 22 - 33 [facility] Sodium SerPl-sCnc 140.0 mmol/L 07/26/2025 136 - 14 5 [facility] Albumin SerPl-mCnc 4.0 g/dL 07/26/2025 3.4 - 4.8 [facility] Transferrin SerPl-mCnc 215.0 mg/dL 07/26/2025 200 - 360 [facility] Prealb SerPl-mCnc 25.0 mg/dL 07/26/2025 20 - 40 [facility] aPTT PPP 28.0 seconds 07/26/2025 25 - 36 [facility] Anticoagulant Information not given 07/26/2025 [facility] Prothrombin time 10.1 seconds 07/26/2025 10 - 13.5 [facility] INR PPP 0.9 07/26/2025 [facility] Anticoagulant Information not given 07/26/2025 [facility] Monocytes num Bld Auto 0.74 Thou/uL 07/26/2025 0.2 - 1.5 [facility] Hgb Bld-mCnc 13.6 g/dL 07/26/2025 11.7 - 15.7 [facility] T Basophils num Bld Auto 0.06 Thou/uL 07/26/2025 0 - 0.2 [facility] Lymphocytes num Bld Auto 1.42 Thou/uL Below low normal 07/26/2025 1.5 - 4.5 [facility] Basophils/leuk NFr Bld Auto 0.7 % 07/26/2025 [facility] MCV RBC Auto 101.0 fL Above high normal 07/26/2025 80 - 100 [facility] Neutrophils num Bld Auto 5.88 Thou/uL 07/26/2025 2 - 7.5 [facility] Imm Granulocytes/leuk NFr Bld Auto 0.4 % 07/26/2025 [facility] PMV Bld Auto 9.7 fL 07/26/2025 7.5 - 12.5 [facility] RDW RBC Auto-Rto 13.2 % 07/26/2025 11.5 - 14.5 [facility] MCHC RBC Auto-mCnc 32.9 g/dL 07/26/2025 30 - 36 [facility] RBC num Bld Auto 4.12 Mil/uL 07/26/2025 4 - 5.4 [facility] Platelet num Bld Auto 261.0 Thou/uL 07/26/2025 150 - 450 [facility] Neutrophils/leuk NFr Bld Auto 69.5 % 07/26/2025 [facility] Hct VFr Bld Auto 41.4 % 07/26/2025 35 - 47 [facility] Eosinophil/leuk NFr Bld Auto 3.9 % 07/26/2025 [facility] WBC num Bld Auto 8.5 Thou/uL 07/26/2025 4 - 11 [facility] Lymphocytes/leuk NFr Bld Auto 16.8 % 07/26/2025 [facility] Monocytes/leuk NFr Bld Auto 8.7 % 07/26/2025 [facility] Imm Granulocytes num Bld Auto 0.03 Thou/uL 07/26/2025 0 - 0.1 [facility] Eosinophil num Bld Auto 0.33 Thou/uL 07/26/2025 0 - 0.7 [facility] MCH RBC Qn Auto 33.0 pg Above high normal 07/26/2025 27 - 31 [facility] History of Medication Use Medication Directions Dispensed Refills Start Date End Date Status barium sulfate (VARIBAR HONEY,VARIBAR NECTAR,TAGITOL V) 40 % 5 mL 5 mL, Oral, Once in imaging, contrast, Starting on Tue08/23/25 at 1039, For 1 dose, Radiology Appointment 5 08/23/20 completed barium sulfate (VARIBAR PUDDING) 40 % 13 mL 13 mL, Oral, Once in imaging, contrast, Starting on Tue08/23/25 at 1039, For 1 dose, Radiology Appointment 5 08/23/20 completed methocarbamol (ROBAXIN) 750 MG tablet Take 1 tablet (750 mg total) by mouth 4 (four) times a day. active acetaminophen (TYLENOL) 325 MG tablet Take 3 tablets (975 mg total) by mouth 3 times daily (every 8 hours) as needed for mild pain. active methocarbamol (ROBAXIN) 500 MG tablet Take 1 tablet (500 mg total) by mouth 3 (three) times a day as needed for muscle spasms. active oxyCODONE (ROXICODONE) 5 MG immediate release tablet Take 1 tablet (5 mg total) by mouth every 4 (four) hours as needed for moderate pain or severe pain. Max Daily Amount: 30 mg active senna-docusate (SENNA-S) 8.6-50 MG Take 2 tablets by mouth nightly. active budesonide (PULMICORT) 0.5 mg/2 mL nebulizer solution 2 ML NEB 2 TIMES A DAY active fluconazole (diFLUcan) 100 MG tablet Take 1 tablet (100 mg total) by mouth daily. Take 2 tablets PO day 1, then take 1 tablet PO days 2-5 for 5 days total 5 active benzonatate (TESSALON) 200 MG capsule Take 1 capsule (200 mg total) by mouth nightly. 5 active Dextromethorphan-guaiFEN esin (Mucinex Cough & Chest Congest) 10-200 MG Cap Take 1 tablet by mouth 2 times a day. 5 active sucralfate (CARAFATE) 1 g tablet Take 1 tablet (1 g total) by mouth 4 (four) times a day before meals and nightly. On an empty stomach. 5 active barium sulfate (E-Z-DISK) tablet 700 mg 700 mg, Oral, Once in imaging, contrast, Starting on Tue10/12/24 at 1439, For 1 dose, Radiology Appointment 10/12/20 completed barium sulfate (EZ-HD) 98 % oral solution 70 mL 70 mL, Oral, Once in imaging, contrast, Starting on Tue10/12/24 at 1439, For 1 dose, Radiology Appointment, mix with 65 ml water 10/12/20 completed barium sulfate (EZ-PAQUE) 60 % oral suspension 175 mL 175 mL, Oral, Once in imaging, contrast, Starting on Tue10/12/24 at 1439, For 1 dose, Radiology Appointment, mix 60% barium/40% water 4 10/12/20 24 completed sodium bicarbonate-citric acid-simethicone (EZ-GAS-II) 1 packet 1 packet, Oral, Once in imaging, contrast, Starting on Tue10/12/24 at 1439, For 1 dose, Radiology Appointment, mix 1 packet with 10 ml water 4 10/12/20 24 completed lidocaine (XYLOCAINE) 2 % mouth solution 5 mL 5 mL, Mouth/Throat, Once, On Tue05/08/24 at 0730, For 1 dose, Intra-Procedure (GI) 4 05/08/20 completed fluticasone-salmeterol (WIXELA INHUB) 500-50 mcg/act inhaler 4 active fluticasone-salmeterol (WIXELA INHUB) 500-50 mcg/act inhaler Inhale 1 puff 2 (two) times a day. 4 active estradiol (VIVELLE-DOT) 0.05 MG/24HR external patch APPLY 1 PATCH TOPICALLY EVERY TUESDAY AND TUESDAY, FOR 84 DAYS 4 active estradiol (VIVELLE-DOT) 0.05 MG/24HR external patch Place 1 patch on the skin 2 (two) times a week. tue 4 active latanoprost (XALATAN) 0.005 % ophthalmic solution TAKE 1 DROP(S) IN EACH EYE BY OPHTHALMIC ROUTE DAILY AT BEDTIME 4 active latanoprost (XALATAN) 0.005 % ophthalmic solution Administer 1 drop to both eyes nightly. 4 active traMADol (ULTRAM) 50 MG tablet TAKE 1 TABLET BY MOUTH 2 TIMES A DAY,X7 DAYS NEEDED FOR PAIN 4 active cromolyn (GASTROCROM) 100 MG/5ML solution TAKE 5ML'S BY MOUTH THREE TIMES DAILY 4 04/13/20 25 active montelukast (SINGULAIR) 10 MG tablet Take 1 tablet (10 mg total) by mouth daily. 3 active montelukast (SINGULAIR) 10 MG tablet Take 1 tablet by mouth daily. 3 active ipratropium (ATROVENT) 0.06 % nasal spray 1 spray into each nostril 2 times a day. 3 07/26/20 25 aborted ipratropium (ATROVENT) 0.06 % nasal spray 0 Refills, Maintenance, 08/11/23 16:31:00 EDT, Partial fill upon patient request if the prescription is for a schedule II opioid drug. 3 active levocetirizine (XYZAL) 5 MG tablet Take 1 tablet (5 mg total) by mouth daily. 3 active traZODone (DESYREL) 50 MG tablet TAKE 1 AND 1/2 TABLETS BY MOUTH DAILY AT BEDTIME 3 active traZODone (DESYREL) 50 MG tablet Take 1 tablet (50 mg total) by mouth nightly. 3 active medroxyPROGESTERone (PROVERA) 2.5 MG tablet Take 1 tablet (2.5 mg total) by mouth daily. 3 active medroxyPROGESTERone (PROVERA) 2.5 MG tablet Take 1 tablet by mouth daily. 3 active acetaminophen (TYLENOL) 325 MG tablet Take 2 tablets (650 mg total) by mouth every 4 (four) hours as needed. active acetaminophen (TYLENOL) 650 MG CR tablet Take 1 tablet (650 mg total) by mouth 3 times daily (every 8 hours) as needed for mild pain. active albuterol (ACCUNEB) 0.63 MG/3ML nebulizer solution Take 3 mL (0.63 mg total) by nebulization 4 times daily (every 6 hours) as needed for wheezing. active albuterol (PROVENTIL HFA; VENTOLIN HFA) 108 (90 Base) MCG/ACT inhaler Inhale 2 puffs every 4 (four) hours. active Alginic Acid Powder by Does not apply route. active azelastine (ASTELIN) 0.1 % nasal spray 1 spray into each nostril 2 (two) times a day. Use in each nostril as directed active diclofenac (VOLTAREN) 1 % gel Apply topically 4 (four) times a day. Use dosing card to measure dose. Apply to entire affect area. active Diclofenac Sodium 1.5 % Solution Apply 40 drops topically. active dupilumab (DUPIXENT) 300 MG/2ML pen injector Inject under the skin every 14 days (2 weeks). active guaiFENesin (MUCINEX) 600 MG 12 hr tablet Take 2 tablets (1,200 mg total) by mouth 2 (two) times a day. active ibuprofen (MOTRIN) 200 MG tablet Take 200 mg by mouth 4 times daily (every 6 hours) as needed for mild pain (Patient reported as needed use only.). active ibuprofen (MOTRIN) 400 MG tablet Take 1 tablet (400 mg total) by mouth 4 times daily (every 6 hours) as needed for mild pain. active Multiple Vitamin (Multi-Vitamin) tablet Take 1 tablet by mouth. active Naproxen Sodium 220 MG Cap Take 1 tablet by mouth as needed. active polyethylene glycol (miraLAx) 17 GM/SCOOP powder Take 17 g by mouth daily. active riboflavin (VITAMIN B-2) 100 MG tablet Take 1 tablet (100 mg total) by mouth daily. active traMADol (ULTRAM) 50 MG tablet Take 1 tablet (50 mg total) by mouth 3 times daily (every 8 hours) as needed for severe pain. active vitamin B complex (b complex vitamins) capsule Take 1 capsule by mouth daily. active Problems Problem Status Onset Date Problem Type Date of Resolution Source Belching active 2024-08-19 ProblemAct [facility] Hypertrichosis active 2023-05-[address] Cervical nerve root compression active 2025-08-07 ProblemAct [facility] Vulvovaginal dryness active 2025-08-07 ProblemAct [facility] Capillary disease active 2025-06-07 ProblemAct [facility] Estrogen deficient vulvovaginitis active 2019-11-10 ProblemAct [facility] Sacroiliitis active 2025-04-18 ProblemAct [facility] Chronic back pain active 2024-05-11 ProblemAct [facility] Sleep apnea active ProblemAct [facility] Cervical radiculopathy active 2025-08-09 ProblemAct [facility] HNP (herniated nucleus pulposus), cervical active 2025-08-13 ProblemAct [facility] Dysphonia active EncounterDiagnosisAct [facility] Constipation active 2024-08-19 ProblemAct [facility] Anxiety disorder active 2023-02-02 ProblemAct H [facility] Polyuria active 2025-08-07 ProblemAct [facility] Hormone replacement therapy active 2019-11-10 ProblemAct [facility] Perennial allergic rhinitis active 2025-08-07 ProblemAct [facility] Glaucoma active ProblemAct [facility] Asthma, severe persistent active 2025-08-07 ProblemAct [facility] Herpes genitalis in women active 2019-11-10 ProblemAct [facility] Elevated LFTs active ProblemAct [facility] Local infection of skin and subcutaneous tissue active 2022-05-12 ProblemAct [facility] T Seborrheic keratosis active 2025-06-07 ProblemAct [facility] Congenital deformity of hip joint active 2025-08-07 ProblemAct [facility] Foraminal stenosis of cervical region active 2025-08-09 ProblemAct [facility] Osteopenia active 2019-11-10 ProblemAct [facility] Major depressive disorder, single episode, moderate active 2024-05-11 ProblemAct [facility] Vertigo active 2025-08-07 ProblemAct [facility] IBS (irritable bowel syndrome) active 2025-08-07 ProblemAct [facility] Lumbar disc herniation with radiculopathy active 2025-08-07 ProblemAct [facility] Hirsutism active 2019-04-10 ProblemAct [facility] Gastroesophageal reflux disease without esophagitis active 2024-08-19 ProblemAct [facility] Nonthrombocytopenic purpura active 2023-02-02 ProblemAct [facility] Asthma active ProblemAct [facility] Fatigue active 2025-08-07 ProblemAct [facility] Vocal cord edema active EncounterDiagnosisAct [facility] Menopause syndrome active 2019-04-10 ProblemAct [facility] Menopause active ProblemAct [facility] Chronic sinusitis active 2025-08-07 ProblemAct [facility] Disorder of pigmentation active 2023-02-02 ProblemAct [facility] Dry mouth and eyes active 2025-08-07 ProblemAct [facility] Depression active ProblemAct [facility] Hip pain active 2013-11-05 ProblemAct [facility] Hyperlipidemia active 2025-08-[address] Multiple pulmonary nodules active 2025-08-07 ProblemAct [facility] Memory change active 2025-08-07 ProblemAct [facility] T DDD (degenerative disc disease), lumbar active 2025-08-07 ProblemAct [facility] Uterine fibroid active 2025-08-07 ProblemAct [facility] Seborrheic keratosis active 2025-06-07 ProblemAct [facility] Foraminal stenosis of cervical region active 2025-08-09 ProblemAct [facility] Hormone replacement therapy active 2019-11-10 ProblemAct [facility] Sleep apnea active ProblemAct [facility] DDD (degenerative disc disease), lumbar active 2025-08-07 ProblemAct [facility] Vertigo active 2025-08-07 ProblemAct [facility] Chronic sinusitis active 2025-08-07 ProblemAct [facility] Chronic back pain active 2024-05-11 ProblemAct [facility] Constipation active 2024-08-19 ProblemAct [facility] Immunizations Vaccine Date Source Lot Number Status Influenza Virus Trivalent Sp lit Vaccine (MDV) IM 08/12/2024 [facility] [id number] completed Influenza Virus Trivalent Sp lit Vaccine (MDV) IM 08/12/2024 [facility] [id number] completed Influenza Virus Trivalent Sp lit Vaccine (MDV) IM [facility]12/[facility] [id number] completed Tdap 08/12/2024 [facility] [id number] completed Tdap 08/12/2024 [facility] [id number] completed Tdap 08/12/2024 [facility] 333SK completed Tdap 08/12/2024 [facility] 333SK completed RSV, Recombinant, Protein Valdes bunit RSV Prefusion F (AREXVY), Adjuvant Recon 0.5 mL PF 08/20/2023 [facility] 4 [id number] completed RSV, Recombinant, Protein Valdes bunit RSV Prefusion F (AREXVY), Adjuvant Recon 0.5 mL PF 08/20/2023 [facility] 4 [id number] completed RSV, Recombinant, Protein Valdes bunit RSV Prefusion F (AREXVY), Adjuvant Recon 0.5 mL PF 08/20/2023 [facility] 4 [id number] completed RSV, Recombinant, Protein Valdes bunit RSV Prefusion F (AREXVY), Adjuvant Recon 0.5 mL PF 08/20/2023 [facility] 4 [id number] completed Influenza Virus Trivalent Sp lit Vaccine (MDV) IM 07/27/2023 [facility] [id number] completed Influenza Virus Trivalent Sp lit Vaccine (MDV) IM 07/27/2023 [facility] [id number] completed Influenza Virus Trivalent Sp lit Vaccine (MDV) IM 07/27/2023 [facility] [id number] completed Influenza Virus Trivalent Sp lit Vaccine (MDV) IM 07/27/2023 [facility] [id number] completed Influenza Virus Trivalent Sp lit Vaccine (MDV) IM 07/27/2023 CCT [id number] completed Influenza Virus Trivalent Sp lit Vaccine (MDV) IM 09/22/2022 [facility] UNK completed Influenza Virus Trivalent Sp lit Vaccine (MDV) IM 09/22/2022 [facility] UNK completed Influenza Virus Trivalent Sp lit Vaccine (MDV) IM 09/22/2022 [facility] UNK completed Influenza, Quadrivalent (FLU AD) Adjuvanted Preservative Free IM 65 years and older 09/22/2022 [facility] [id number] completed Influenza, Quadrivalent (FLU AD) Adjuvanted Preservative Free IM 65 years and older 09/22/2022 [facility] [id number] completed Influenza, Quadrivalent (FLU AD) Adjuvanted Preservative Free IM 65 years and older 09/22/2022 CCT [id number] completed Influenza, Quadrivalent (FLU AD) Adjuvanted Preservative Free IM 65 years and older 09/22/2022 CCT [id number] completed Pneumococcal Polysaccharide 23-Valent 04/23/2022 [facility] [id number] completed Pneumococcal Polysaccharide 23-Valent 04/23/2022 [facility] [id number] completed Pneumococcal Polysaccharide 23-Valent 04/23/2022 [facility] [id number] completed Pneumococcal Polysaccharide 23-Valent 04/23/2022 [facility] [id number] completed Influenza Virus Trivalent Sp lit Vaccine (MDV) IM 11/22/2021 CCT [id number] completed Influenza Virus Trivalent Sp lit Vaccine (MDV) IM 11/22/2021 [facility] [id number] completed Influenza Virus Trivalent Sp lit Vaccine (MDV) IM 11/22/2021 CCT [id number] completed Influenza Virus Trivalent Sp lit Vaccine (MDV) IM 11/22/2021 CCT [id number] completed Influenza, Quadrivalent (FLU AD) Adjuvanted Preservative Free IM 65 years and older 11/22/2021 CCT [id number] completed Influenza, Quadrivalent (FLU AD) Adjuvanted Preservative Free IM 65 years and older 11/22/2021 [facility] [id number] completed Influenza, Quadrivalent (FLU AD) Adjuvanted Preservative Free IM 65 years and older 11/22/2021 [facility] [id number] completed Influenza, Quadrivalent (FLU AD) Adjuvanted Preservative Free IM 65 years and older 11/22/2021 [facility] [id number] completed Influenza, Quadrivalent (FLU AD) Adjuvanted Preservative Free IM 65 years and older 11/22/2021 [facility] [id number] completed Zoster Vaccine Recombinant (Shingrix) 03/21/2021 [facility] [id number] completed Zoster Vaccine Recombinant (Shingrix) 03/21/2021 [facility] [id number] completed Zoster Vaccine Recombinant (Shingrix) 03/21/2021 [facility] [id number] completed Covid-19 mRNA Primary Series Vaccine - Moderna 0.5 mL Full Dose 01/09/2021 [facility] [id number] completed Covid-19 mRNA Primary Series Vaccine - Moderna 0.5 mL Full Dose 01/09/2021 [facility] [id number] completed Covid-19 mRNA Primary Series Vaccine - Moderna 0.5 mL Full Dose 01/09/2021 [facility] [id number] completed Zoster Vaccine Recombinant (Shingrix) 10/11/2020 [facility] [id number] completed Zoster Vaccine Recombinant (Shingrix) 10/11/2020 [facility] [id number] completed Zoster Vaccine Recombinant (Shingrix) 10/11/2020 [facility] [id number] completed Influenza Virus Trivalent Sp lit Vaccine (MDV) IM 08/01/2020 [facility] [id number] completed Influenza Virus Trivalent Sp lit Vaccine (MDV) IM 08/01/2020 [facility] [id number] completed Influenza Virus Trivalent Sp lit Vaccine (MDV) IM 08/01/2020 [facility] [id number] completed Influenza Virus Trivalent Sp lit Vaccine (MDV) IM 08/01/2020 [facility] [id number] completed Pneumococcal Conjugate 13-Valent 08/01/2020 [facility] [id number] completed Pneumococcal Conjugate 13-Valent 08/01/2020 [facility] [id number] completed Pneumococcal Conjugate 13-Valent 08/01/2020 [facility] [id number] completed Pneumococcal Conjugate 13-Valent 08/01/2020 [facility] [id number] completed Tdap 04/17/2020 [facility] [id number] completed Tdap 04/17/2020 [facility] [id number] completed Tdap 04/17/2020 [facility] [id number] completed Tdap 04/17/2020 [facility] [id number] completed Tdap 04/17/2020 [facility] [id number] completed Influenza, Trivalent (FLUAD) Adjuvanted Preservative Free IM 65 years and older 08/17/2019 [facility] completed Influenza, Trivalent (FLUAD) Adjuvanted Preservative Free IM 65 years and older 08/17/2019 [facility] completed Influenza, Trivalent (FLUAD) Adjuvanted Preservative Free IM 65 years and older 08/17/2019 [facility] completed Influenza, Trivalent (FLUAD) Adjuvanted Preservative Free IM 65 years and older 08/17/2019 [facility] completed Influenza, Trivalent (FLUAD) Adjuvanted Preservative Free IM 65 years and older 08/17/2019 [facility] completed Influenza High-Dose Trivalen t,(FLUZONE HIGH-DOSE), Perservative Free IM 0.5 mL 65 years and older 08/10/2018 [facility] [id number] completed Influenza High-Dose Trivalen t,(FLUZONE HIGH-DOSE), Perservative Free IM 0.5 mL 65 years and older 08/10/2018 [facility] [id number] completed Influenza High-Dose Trivalen t,(FLUZONE HIGH-DOSE), Perservative Free IM 0.5 mL 65 years and older 08/10/2018 [facility] [id number] completed Influenza Virus Trivalent Sp lit Vaccine (MDV) IM 08/10/2018 [facility] [id number] completed Influenza Virus Trivalent Sp lit Vaccine (MDV) IM 08/10/2018 [facility] [id number] completed Influenza Virus Trivalent Sp lit Vaccine (MDV) IM 08/10/2018 [facility] [id number] completed Influenza Virus Trivalent Sp lit Vaccine (MDV) IM 08/10/2018 [facility] [id number] completed Influenza Virus Trivalent Sp lit Vaccine (MDV) IM 08/10/2018 [facility] [id number] completed Influenza Virus Trivalent Sp lit Vaccine (MDV) IM 08/10/2018 [facility] [id number] completed Influenza High-Dose Trivalen t,(FLUZONE HIGH-DOSE), Perservative Free IM 0.5 mL 65 years and older 08/05/2017 [facility] [id number] completed Influenza High-Dose Trivalen t,(FLUZONE HIGH-DOSE), Perservative Free IM 0.5 mL 65 years and older 08/05/2017 [facility] [id number] completed Influenza High-Dose Trivalen t,(FLUZONE HIGH-DOSE), Perservative Free IM 0.5 mL 65 years and older 08/05/2017 [facility] [id number] completed Influenza High-Dose Trivalen t,(FLUZONE HIGH-DOSE), Perservative Free IM 0.5 mL 65 years and older 08/05/2017 [facility] [id number] completed Influenza Virus Trivalent Sp lit Vaccine (MDV) IM 08/05/2017 [facility] [id number] completed Influenza Virus Trivalent Sp lit Vaccine (MDV) IM 08/05/2017 [facility] [id number] completed Influenza Virus Trivalent Sp lit Vaccine (MDV) IM 08/05/2017 [facility] [id number] completed Influenza Virus Trivalent Sp lit Vaccine (MDV) IM 08/13/2016 [facility] [id number] completed Influenza Virus Trivalent Sp lit Vaccine (MDV) IM 08/13/2016 [facility] [id number] completed Influenza Virus Trivalent Sp lit Vaccine (MDV) IM 08/13/2016 [facility] [id number] completed Influenza Virus Trivalent Sp lit Vaccine (MDV) IM 08/13/2016 [facility] [id number] completed Influenza, Quadrivalent (FLU CELVAX) MDCK, Preservative Free IM 08/13/2016 [facility] [id number] completed Influenza, Quadrivalent (FLU CELVAX) MDCK, Preservative Free IM 08/13/2016 [facility] [id number] completed Influenza, Quadrivalent (FLU CELVAX) MDCK, Preservative Free IM 08/13/2016 [facility] [id number] completed Influenza, Quadrivalent (FLU CELVAX) MDCK, Preservative Free IM 08/13/2016 [facility] [id number] completed Influenza Virus Trivalent Sp lit Vaccine (MDV) IM 07/20/2015 [facility] [id number] completed Influenza Virus Trivalent Sp lit Vaccine (MDV) IM 07/20/2015 [facility] [id number] completed Influenza Virus Trivalent Sp lit Vaccine (MDV) IM 07/20/2015 [facility] [id number] completed Influenza Virus Trivalent Sp lit Vaccine (MDV) IM 07/20/2015 [facility] [id number] completed Influenza, Quadrivalent (FLU ARIX, AFLURIA, FLULAVAL, FLUZONE) Preservative Free IM 07/20/2015 [facility] [id number] completed Influenza, Quadrivalent (FLU ARIX, AFLURIA, FLULAVAL, FLUZONE) Preservative Free IM 07/20/2015 [facility] [id number] completed Influenza, Quadrivalent (FLU ARIX, AFLURIA, FLULAVAL, FLUZONE) Preservative Free IM 07/20/2015 [facility] [id number] completed Influenza, Quadrivalent (FLU ARIX, AFLURIA, FLULAVAL, FLUZONE) Preservative Free IM 07/20/2015 [facility] [id number] completed Influenza, Quadrivalent (FLU ARIX, AFLURIA, FLULAVAL, FLUZONE) Preservative Free IM 07/20/2015 [facility] [id number] completed Encounters Encounter Type Encounter Reason Primary Diagnosis Location Date Ambulatory Arthrodesis status Arthrodesis status [facility] 09/04/2025 Ambulatory Dysphonia Dysphonia [facility] 09/04/2025 Ambulatory Dysphonia Dysphonia [facility] 09/04/2025 Ambulatory Hoarse Hoarse [facility] 08/28/2025 Ambulatory Spinal stenosis, cervical region Spinal stenosis, cervical region [facility] 08/23/2025 Ambulatory Other cervical disc displacement, unspecified cervical region Other cervical disc displacement, unspecified cervical region [facility] 08/13/2025 Ambulatory Back Pain Back Pain [facility] 08/09/2025 Ambulatory Laryngitis Laryngitis [facility] 08/07/2025 Ambulatory Encounter for other preprocedural examination Encounter for other preprocedural examination [facility] 07/26/2025 Ambulatory Encounter for screening for other musculoskeletal disorder Encounter for screening for other musculoskeletal disorder [facility] 04/18/2025 Ambulatory Follow-up Follow-up [facility] 04/09/2025 Ambulatory Encounter for screening for other musculoskeletal disorder Encounter for screening for other musculoskeletal disorder [facility] 03/15/2025 Ambulatory [facility] 03/08/2025 Ambulatory [facility] 03/08/2025 Ambulatory [facility] 03/08/2025 Ambulatory [facility] 03/08/2025 Ambulatory Gastro-esophageal reflux disease without esophagitis Gastro-esophageal reflux disease without esophagitis [facility] 11/23/2024 Ambulatory Gastro-esophageal reflux disease without esophagitis Gastro-esophageal reflux disease without esophagitis [facility] 10/12/2024 Ambulatory Follow-up Follow-up [facility] 08/14/2024 Ambulatory Gastro-esophageal reflux disease without esophagitis Gastro-esophageal reflux disease without esophagitis [facility] 06/20/2024 Ambulatory Gastro-esophageal reflux disease without esophagitis Gastro-esophageal reflux disease without esophagitis [facility] 05/08/2024 Ambulatory Consult Consult [facility] 04/05/2024 Care Team Organization Name Specialty Phone Email Start Date End Da te [facility] 04/05/2024 [facility] 02/03/2024
--- OUTSIDE RECORDS SUMMARY | 2025-09-06 08:54 | XMS_ITS | Encounter Summary ---
Author Organization [facility] Address [address] [place] [address] Care Team Providers Care Educational Recruiter Name Role Phone Belem Diaz MD Primary Care Provider Unava ilable Reason for Visit * Reason Comments E-prescribe Rx Request Encounter Details Date Type Department Care Team Description 07/11/2018 Refill OBGYN - [address] [address] Adilson Major MD E-prescribe Rx Request Social History Tobacco Use Types Packs/Day Years Used Date Smoking Tobacco: Former Smokeless Tobacco: Never Alcohol Use Standard Drinks/Week Comments Yes 0 (1 standard drink = 0.6 oz pur e alcohol) 1-2 per day Sex Assigned at Date Recorded Not on file documented as of this encounter Miscellaneous Notes * Telephone Encounter - Dana Mak L.P.N. - 07/21/2018 9:00 AM EDT Our office has tried to contact the patient several times with no return call back. Encounter closed. * Telephone Encounter - Dana Mak L.P.N. - 07/20/2018 2:40 PM EDT Message left for patient to return call to triage. * Telephone Encounter - Dana Mak L.P.N. - 07/19/2018 9:26 AM EDT Message left for patient to return call to triage. * Telephone Encounter - Dana Mak L.P.N. - 07/12/2018 10:30 AM EDT Rx request for Estrace 0.5 mg. A message was left for patient to contact our office back if she will be continuing care here or following Dr. Major at his new practice. Patient last seen with Dr. Major04/07/18. * Telephone Encounter - Cheyenne Johnson - 07/12/2018 10:23 AM EDT WHEN WAS THE PATIENTS LAST ANNUAL HEALTH INFORMATION PROVIDER EXAM? 04/07/18 Dr major - left message for patient to see if she is coming here to see another dr or continuing with dr major at new office Does patient have an upcoming appointment? No (THE MEDICATION REQUESTED IS ON THE MED LIST ABOVE) Did you check the Pharmacy information above?: YES Indicate how soon the patient needs the script: BY THE END OF THE DAY Patient would like script to be: E-PRESCRIBED/FAXED TO PHARMACY Is the doctor here today?: NO Can the message wait until the doctor returns?: NO Has the patient been told that the prescription will not be filled until the end of the day? NO [place] / Plan: [facility] MDCR-ADV PPO $15/$25 [place] / Product Type: MEDICARE [id number] documented in this encounter Plan of Treatment Not on file documented as of this encounter Visit Diagnoses Not on filedocumented in this encounter Care Teams Educational Recruiter Relationship Specialty Start Date End Date Belem Diaz MD PCP - General Internal Medicine 08/24/17 documented as of this encounter
--- OUTSIDE RECORDS SUMMARY | 2025-09-06 08:54 | XMS_ITS | Data Portability ---
Author Organization [facility] [address] Address [address] [place] [address] Care Team Providers Care Senior Logistics Manager Name Role Phone GEORGES KHRIS Primary Care Provider Assessment No assessment recorded. Plan of Treatment Reminders Order Date Submit Date Provider Last Modified By Organization Details Last Modified Time Details Appointments None recorded. Lab None recorded. Referral None recorded. Procedures None recorded. Surgeries None recorded. Imaging None recorded. Medication Orders triamcinolo ne acetonide 0.1 % topical cream 2022 023 [id number], [address] [place], [address], 09:56:41 Patient TargetsNo targets recorded. Patient Instructions Encounter Date Encounter Id Patient Instructions Last Modified By Organization Details Last Modified Time 07/03/2023 [id number] rash: care instructions Not available 07/03/2023 09:56:40 COOL COMPRESSES, COOL SHOWERS, MAY BE SOOTHING SINCE HEAT OF ANY SOURCE SEEMS TO MAKE RASH MORE IRRITATING AVOID SCRATCHING WHICH MAY SET UP A SECONDARY INFECTION REQUIRING ADDITIONAL TREATMENT ANTIHISTAMINES MAY HELP SOME OF THE REDNESS AND ITCH (ZYRTEC, CARLTON, CLARITIN) BENADRYL IS 4 HOUR ANTIHISTAMINE AND CAN TAKE AT OPPOSITE END OF DAY THE OTHER OPTIONS BUT THIS CAN MAKE YOU TIRED AVOID USING ADDITIONAL CORTISONE CREAMS ON SKIN IF YOU ARE ALREADY TAKING PREDNISONE BY MOUTH Go to the Emergency Department immediately if your symptoms worsen or if you develop new symptoms that concern you. We recommend that you follow up with your primary care physician within 1 week. Failure to follow up as recommended may result in significant adverse health consequences. NO NSAIDS LIKE IBUPROFEN WHILE ON STEROIDS/PREDNISON E. TAKE WITH FOOD, PREFERRABLY BREAKFAST MAY TALK TYLENOL ONLY Not available 07/03/2023 09:55:02 Reason for Referral None Reported. 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 Procedures Surgical History Date Name Laterality Status Provider Name and Address Organization Details Recorded Time prosthetic arthroplasty of hip completed SHAYLEE DRINKWINE PA - [facility] 07/03/2023 09:31:16 Imaging Results None recorded. Procedure Notes None recorded. Medical Equipment None Reported. Allergies No known drug allergies Medications Name Sig Start Date Stop Date Status Note LastModified by Organization Details LastModified Time latanoprost 0.005 % eye drops PLACE 1 DROP INTO BOTH EYES DAILY AT BEDTIME active Not Available Not Available No t Available trazodone 50 mg tablet TAKE 1 AND 1/2 TABLETS BY MOUTH DAILY AT BEDTIME active Not Available Not Available No t Available azithromyci n 250 mg tablet TAKE 2 TABLETS BY MOUTH TODAY, THEN TAKE 1 TABLET DAILY FOR 4 DAYS 07/03 completed Not Available Not Available Not Available medroxyprog esterone 2.5 mg tablet TAKE 1 TABLET BY MOUTH EVERY DAY active Not Available Not Available No t Available prednisone 20 mg tablet TAKE 1 TABLET BY MOUTH TWICE A DAY FOR 5 DAYS WITH FOOD OR MILK active Not Available Not Available No t Available estradiol 0.05 mg/24 hr semiweekly transdermal patch 1 PATCH TOPICALLY EVERY TUESDAY AND TUESDAY, FOR 84 DAYS active Not Available Not Available No t Available tramadol 50 mg tablet TAKE 1 TO 2 TABLETS BY MOUTH EVERY 6 HOURS NEEDED FOR PAIN. DO NOT DRIVE WHILE ON THIS MEDICATIO N active Not Available Not Available No t Available triamcinolo ne acetonide 0.1 % topical cream APPLY A THIN LAYER TO THE AFFECTED AREA(S) 2 TIMES PER DAY NEEDED active Not Available Not Available No t Available aspirin 325 mg tablet,kishan yed release TAKE 1 TABLET BY MOUTH TWICE A DAY [id number]. MEDICATIO N TO BE STARTED AFTER SURGERY 07/03 completed Not Available Not Available Not Available Advair Diskus 250 mcg-50 mcg/dose powder for inhalation INHALE 1 PUFF BY MOUTH TWICE A DAY active Not Available Not Available No t Available Advair Diskus 500 mcg-50 mcg/dose powder for inhalation INHALE 1 PUFF BY MOUTH TWICE DAILY active Not Available Not Available No t Available montelukast 10 mg tablet TAKE 1 TABLET BY MOUTH EVERY DAY active Not Available Not Available No t Available gabapentin 100 mg capsule TAKE 1 TO 2 CAPSULES BY MOUTH AT BEDTIME 07/03 completed Not Available Not Available Not Available azelastine 137 mcg (0.1 %) nasal spray USE 2 SPRAYS NASALLY TWICE A DAY DIRECTED active Not Available Not Available No t Available epinephrine 0.3 mg/0.3 mL injection, auto-inject or USE DIRECTED FOR ANAPHYLAX IS THEN CALL 911 active Not Available Not Available No t Available albuterol sulfate HFA 90 mcg/actuati on aerosol inhaler INHALE 2 PUFFS BY MOUTH EVERY 4 HOURS active Not Available Not Available No t Available hydromorpho ne 4 mg tablet TAKE 1/2 TO 1 TABLET BY MOUTH EVERY 3 HOURS NEEDED FOR SEVERE PAIN 07/03 completed Not Available Not Available Not Available fluticasone propionate 50 mcg/actuati on nasal spray,suspe nsion INHALE 1 SPRAY INTO BOTH NOSTRILS DAILY IN THE AM active Not Available Not Available No t Available Vaniqa 13.9 % topical cream PLEASE SEE ATTACHED FOR DETAILED DIRECTION S 07/03 completed Not Available Not Available Not Available spironolact one 50 mg tablet PLEASE SEE ATTACHED FOR DETAILED DIRECTION S active Not Available Not Available No t Available amoxicillin 875 mg-potassiu m clavulanate 125 mg tablet TAKE 1 TABLET BY MOUTH TWICE A DAY FOR 7 DAYS 07/03 completed Not Available Not Available Not Available cyclobenzap rine 5 mg tablet TAKE 1 TABLET BY MOUTH 3 TIMES A DAY NEEDED FOR PAIN AND OR SPASM 07/03 completed Not Available Not Available Not Available Vitamin D3 active Not Available Not Av ailable Not Available Miralax active Not Available Not Avail able Not Available multivitami n active Not Available Not Available Not Available levocetiriz ine active Not Available Not Available Not Available Probiotic active Not Available Not Mary ilable Not Available fluticasone furoate 200 mcg-vilante rol 25 mcg/dose inhalation powder INHALE 1 PUFF BY MOUTH DAILY active Not Available Not Available No t Available Yuvafem 10 mcg vaginal tablet INSERT 1 TABLET VAGINALLY 2 TIMES A WEEK AT BEDTIME active Not Available Not Available No t Available marijuana (cannabis) oral edible Take by oral route. active Not Available Not Available No t Available Vitals Date Recorded Body height Body mass index (BMI) Body weight Pain severity - 0-10 verbal numeric rating [Score] - Reported Heart rate Oxygen saturation Oxygen saturation in Arterial blood by Pulse oximetry Respiratory rate Body temperature Systolic And Diastolic Provider Name and Address Organization Details Last Updated DateTime 3 165.1 cm 19.1 kg/m2 66455.1 2 g 9 78 /min 100 % 100 % 16 /min 98.2 [degF] 128/72 mm[Hg] SHAYLEE MARIE PA [facility] 3 09:34:55 Social History Question Answer Notes LastModified by Organizat ion Details LastModified Time Tobacco Smoking Status Former Smoker SHAYLEE chandra PA - [facility] 07/03/2023 09:32:16 Which Illicit Or Recreational Drugs Have You Used? Marijuana Gummies Information not available 07/03/2023 When Did You Quit Smoking? 16+yearssincel rex Information not available 07/03/2023 Have You Recently Traveled Abroad? No Information not available 07/03/2023 Sex: Unknown Functional Status Question Answer Note LastModified by Organizat ion Details LastModified Time Do you use any illicit or recreational drugs? Yes Information not available 07/03/2023 Do you or have you ever used any other forms of tobacco or nicotine? No Information not available 07/03/2023 Mental Status None recorded. Family History Nothing Reported. Medical History No medical history recorded. Gynecological HistoryNo gynecological history recorded. Obstetrics History GPAL:G 0 P 0 0 0 0 Immunizations Vaccine Type Date Status Note Provider Nam e and Address Organization Details Recorded Time Influenza, MDCK, quadrivalent, PF 6 completed SHAYLEE DRINKWINE null, PA - [facility] 07/03/2023 09:31:26 zoster recombinant 1 completed SHAYLEE DRINKWINE null, PA - [facility] 07/03/2023 09:31:26 zoster recombinant 0 completed SHAYLEE DRINKWINE null, PA - [facility] 07/03/2023 09:31:26 Influenza, adjuvanted, quadrivalent, PF 2 completed SHAYLEE DRINKWINE null, PA - [facility] 07/03/2023 09:31:26 Influenza, adjuvanted, quadrivalent, PF 2 completed SHAYLEE DRINKWINE null, PA - [facility] 07/03/2023 09:31:26 COVID-19, mRNA, LNP-S, PF, 100 mcg/0.5mL dose or 50 mcg/0.25mL dose 1 completed SHAYLEE DRINKWINE null, PA - [facility] 07/03/2023 09:31:26 COVID-19, mRNA, LNP-S, PF, 100 mcg/0.5mL dose or 50 mcg/0.25mL dose 1 completed SHAYLEE DRINKWINE null, PA - [facility] 07/03/2023 09:31:26 COVID-19, mRNA, LNP-S, PF, 100 mcg/0.5mL dose or 50 mcg/0.25mL dose 2 completed SHAYLEE DRINKWINE null, PA - [facility] 07/03/2023 09:31:26 COVID-19, mRNA, LNP-S, PF, 100 mcg/0.5mL dose or 50 mcg/0.25mL dose 1 completed SHAYLEE DRINKWINE null, PA - [facility] 07/03/2023 09:31:26 COVID-19, mRNA, LNP-S, bivalent, PF, 30 mcg/0.3 mL dose 2 completed SHAYLEE DRINKWINE null, PA - [facility] 07/03/2023 09:31:26 pneumococcal polysaccharide PPV23 2 completed SHAYLEE DRINKWINE null, PA - [facility] 07/03/2023 09:31:26 Influenza, high-dose, trivalent, PF 7 completed SHAYLEE DRINKWINE null, PA - [facility] 07/03/2023 09:31:26 Influenza, high-dose, trivalent, PF 8 completed SHAYLEE DRINKWINE null, PA - [facility] 07/03/2023 09:31:26 Influenza, split virus, quadrivalent, PF 5 completed SHAYLEE DRINKWINE null, PA - [facility] 07/03/2023 09:31:26 Past Encounters Encounter ID Performer Location Encounter Start Date Encounter Closed Date Diagnosis/Indication Diagnosis SNOMED-CT Code Diagnosis ICD10 Code Diagnosis IMO Codes Diagnosis Note [id number] [address] [place] [address] 03/03/2019 18:49:04 03/03/2019 20:03:19 [id number] [place] [address] 11/07/2021 08:43:57 11/07/2021 10:50:28 [id number] CATRACHO HERNANDEZ MD [address] [place] [phone] 07/03/2023 08:56:47 07/03/2023 09:58:00 Localized eruption of skin 987550988 R21 UNSPECIFIE D macular RASH , FADING , patient to follow up with PCP or this clinic if not getting better or worsen. Health Concerns Section Related Observation LastModified by Organization Detai ls LastModified Time None Recorded Concern Status LastModified by Organization Details LastModified Time None Recorded Advance Directives Directive None Recorded Payers Insurance Date Sequence Insurance Name Policy Number Policy Mahan Covered Member ID Mahan Member ID Guarantor Name 07/02/2023 1 [facility]: MEDICARE PPO BLUE (MEDICARE REPLACEMENT PPO) [id number] Marilu Sarika [id number] Marilu Sarika Notes Date Note Type Note Provider Name and Address Organization Details Recorded Time 07/03/2023 text/html 73 year old female presented with bilateral petechiae kind of rash x 4 days which is not painful or itchy and is fading away. patient also denies any blood thinner. no c/o SOB, respiratory distress, no Chest pain . No pain in the legs. Johnny Guallpa NP [address] [place], [address], PA - [facility] 07/03/2023 10:10:42 OBGyn Episode No OBEpisode recorded.
--- OUTSIDE RECORDS SUMMARY | 2025-09-06 08:54 | XMS_ITS | Encounter Summary ---
Author Organization [facility] Address [address] [place] [address] Care Team Providers Care Elementary Assistant Teacher Name Role Phone Belem Diaz MD Primary Care Provider [phone] Gosia Gonzalez DO Unavailable Shruti Hu RN Unavailable Carson Vang MD Unavailable [phone] System, Provider Not In Unavailable Unavaila ble Encounter Details Date Type Department Care Team (Late st Contact Info) Description 08/27/[address] [facility] Neurosurgery [place] [address] [facility] [address] [place] [address] Carson Vang MD [address] [facility] [address] [place] [address] Social History Tobacco Use Types Packs/Day Years [...] on filedocumented in this encounter Care Teams Elementary Assistant Teacher Relationship Specialty Start Date End Date Belem Diaz MD [address] [place] [address] PCP - General Internal Medicine 02/03/24 Gosia Gonzalez DO [address] [facility] [place] [address] Physician Gastroenterology 06/29/24 Shruti Ocasio RN [address] [place] [address] Nurse Navigator Surgery, Neurosurgery 04/18/25 Carson Vang MD [address] [place] [address] Surgery, Neurosurgery 05/28/25 System, Provider Not In [address] [place] [address] Pulmonary Disease 05/28/25 documented as of this encounter
--- OUTSIDE RECORDS SUMMARY | 2025-09-06 08:54 | XMS_ITS | Encounter Summary ---
Author Organization [facility] Address [address] [place] [address] Care Team Providers Care Carrier Operator Name Role Phone Belem Diaz MD Primary Care Provider Unava ilable Reason for Visit * Reason Comments E-prescribe Rx Request Encounter Details Date Type Department Care Team Description 05/06/2019 Refill OBGYN - [address] [address] Adilson Kim MD E-prescribe Rx Request Social History Tobacco Use Types Packs/Day Years Used Date Smoking Tobacco: Former Smokeless Tobacco: Never Alcohol Use Standard Drinks/Week Comments Yes 0 (1 standard drink = 0.6 oz pur e alcohol) 1-2 per day Sex Assigned at Date Recorded Not on file documented as of this encounter Miscellaneous Notes * Telephone Encounter - Natalia Guerrero - 05/07/2019 8:56 AM EDT Message already left for patient back in December documented in this encounter Plan of Treatment Not on file documented as of this encounter Visit Diagnoses Not on filedocumented in this encounter Care Teams Carrier Operator Relationship Specialty Start Date End Date Belem Diaz MD PCP - General Internal Medicine 08/24/17 documented as of this encounter
--- OUTSIDE RECORDS SUMMARY | 2025-09-06 08:54 | XMS_ITS | Encounter Summary ---
Author Organization [facility] Address [address] [place] [address] Care Team Providers Care Beef Skinner Name Role Phone Belem Diaz MD Primary Care Provider Unava ilable Encounter Details Date Type Department Care Team Description 10/14/2017 Release of Information Medical Records [address] [place] [address] Abstract, Provider Social History Tobacco Use Types Packs/Day Years Used Date Smoking Tobacco: Former Smokeless Tobacco: Never Alcohol Use Standard Drinks/Week Comments Yes 0 (1 standard drink = 0.6 oz pur e alcohol) 1-2 per day Sex Assigned at Date Recorded Not on file documented as of this encounter Plan of Treatment Not on file documented as of this encounter Visit Diagnoses Not on filedocumented in this encounter Care Teams Beef Skinner Relationship Specialty Start Date End Date Belem Diaz MD PCP - General Internal Medicine 08/24/17 documented as of this encounter
--- OUTSIDE RECORDS SUMMARY | 2025-09-06 08:54 | XMS_ITS | Encounter Summary ---
Author Organization [facility] Address [address] [place] [address] Care Team Providers Care Garnett Machine Operator Helper Name Role Phone Belem Diaz MD Primary Care Provider [phone] Gosia Gonzalez DO Unavailable Shruti Hu RN Unavailable [phone] Carson Vang MD Unavailable [phone] System, Provider Not In Unavailable Unavaila ble Encounter Details Date Type Department Care Team (Late st Contact Info) Description 08/02/2025 Scanned Document [facility] Neurosurgery [place] [address] [facility] [address] [place] [address] Dina Dee, PA-C [address] [facility] [address] [place] [address] Social History Tobacco Use Types Packs/Day Years Used Date Smoking Tobacco: Former Cigarettes 1.5 11 1 - 08/10/1980 Smokeless Tobacco: Never Alcohol Use Standard Drinks/Week Comments Yes 20 (1 standard drink = 0.6 oz [...] on filedocumented in this encounter Care Teams Garnett Machine Operator Helper Relationship Specialty Start Date End Date Belem Diaz MD [address] [place] [address] PCP - General Internal Medicine 02/03/24 Gosia Gonzalez DO [address] [facility] [place] [address] Physician Gastroenterology 06/29/24 Shruti Ocasio RN [address] [place] [address] Nurse Navigator Surgery, Neurosurgery 04/18/25 Carson Vang MD [address] [place] [address] Surgery, Neurosurgery 05/28/25 System, Provider Not In [address] [place] [address] Pulmonary Disease 05/28/25 documented as of this encounter
--- OUTSIDE RECORDS SUMMARY | 2025-09-06 08:54 | XMS_ITS | Encounter Summary ---
Author Organization [facility] Address [address] [place] [address] Care Team Providers Care Retort Pre Cooker Name Role Phone Belem Diaz MD Primary Care Provider [phone] Gosia Gonzalez DO Unavailable [phone] Shruti Hu RN Unavailable Carson Vang MD Unavailable [phone] System, Provider Not In Unavailable Unavaila ble Encounter Details Date Type Department Care Team (Late st Contact Info) Description 08/09/2025 Scanned Document [facility] Neurosurgery [place] [address] [place] [address] Carson Vang MD [address] [facility] [address] [place], [place] [id number] Social History Tobacco Use Types Packs/Day Years [...] on filedocumented in this encounter Care Teams Retort Pre Cooker Relationship Specialty Start Date End Date Belem Diaz MD [address] [place] [address] PCP - General Internal Medicine 02/03/24 Gosia Gonzalez DO [address] [place] [address] [place] [address] Physician Gastroenterology 06/29/24 Shruti Ocasio RN [address] [place] [address] Nurse Navigator Surgery, Neurosurgery 04/18/25 Carson Vang MD [address] [place] [address] Surgery, Neurosurgery 05/28/25 System, Provider Not In [address] [place] [address] Pulmonary Disease 05/28/25 documented as of this encounter
--- OUTSIDE RECORDS SUMMARY | 2025-09-06 08:54 | XMS_ITS | Encounter Summary ---
Author Organization [facility] Address [address] [place] [id number] Care Team Providers Care [employer] Fusion Middleware Developer Name Role Phone Belem Diaz MD Primary Care Provider [phone] Gosia Gonzalez DO Unavailable Shruti Hu RN Unavailable Carson Vang MD Unavailable [phone] System, Provider Not In Unavailable Unavaila ble Encounter Details Date Type Department Care Team (Late st Contact Info) Description 04/12/2024 Scanned Document [facility] [address] [facility] [address] [place] [address] Vicky Alanis PA [address] [facility] [address] [place], [place] [id number] Social History Tobacco Use Types Packs/Day Years Used Date Smoking Tobacco: Never Assessed Comments Unknown Sex and Gender Information Value Date Recorded Sex Assigned at Female 04/04/2024 8:56 PM EDT Legal Sex Female 3:52 PM EDT Gender Identity Female 04/04/2024 8:56 PM EDT Sexual Orientation Heterosexual (straight) 04/04 8:56 PM EDT documented as of this encounter Plan of Treatment Not on file documented as of this encounter Visit Diagnoses Not on filedocumented in this encounter Care Teams [employer] Middleware Developer Relationship Specialty Start Date End Date Belem Diaz MD [address] [place] [address] PCP - General Internal Medicine 02/03/24 Gosia Gonzalez DO [address] [facility] [place] [address] Physician Gastroenterology 06/29/24 Shruti Ocasio RN [address] [place] [address] Nurse Navigator Surgery, Neurosurgery 04/18/25 Carson Vang MD [address] [address] Surgery, Neurosurgery 05/28/25 System, Provider Not In [address] [place] [address] Pulmonary Disease 05/28/25 documented as of this encounter
--- OUTSIDE RECORDS SUMMARY | 2025-09-06 08:54 | XMS_ITS | Encounter Summary ---
Author Organization [facility] Address [address] [place] [address] Care Team Providers Care Technical Aide Name Role Phone Belem Diaz MD Primary Care Provider Unava ilable Encounter Details Date Type Department Care Team Description 10/10/2018 Release of Information Medical Records [address] [place] [id number] Abstract, Provider Social History Tobacco Use Types [...] on filedocumented in this encounter Care Teams Technical Aide Relationship Specialty Start Date End Date Belem Diaz MD PCP - General Internal Medicine 08/24/17 documented as of this encounter
--- OUTSIDE RECORDS SUMMARY | 2025-09-06 08:54 | XMS_ITS | Clinical Summary ---
Author Organization [facility] Address [address] [place] [id number] Care Team Providers Care Fire Alarm Dispatcher Name Role Phone Belem Diaz MD Primary Care Provider [phone] Gosia Gonzalez DO Unavailable [phone] Shruti Hu RN Unavailable Carson Vang MD Unavailable [phone] System, Provider Not In Unavailable Unavaila ble Allergies No known active allergies Medications estradiol (VIVELLE-DOT) 0.05 MG/24HR external patch Place 1 patch on the skin 2 (two) times a week. tue03/21/20 24 Active fluticasone-salm eterol (WIXELA INHUB) 500-50 mcg/act inhaler Inhale 1 puff 2 (two) times a day. 04/03/20 24 Active latanoprost (XALATAN) 0.005 % ophthalmic solution Administer 1 drop to both eyes nightly. 03/02/20 24 Active levocetirizine (XYZAL) 5 MG tablet Take 1 tablet (5 mg total) by mouth every morning. 06/14/20 23 Active medroxyPROGESTER one (PROVERA) 2.5 MG tablet Take 1 tablet (2.5 mg total) by mouth every morning. 04/26/20 Active traZODone (DESYREL) 50 MG tablet Take 1 tablet (50 mg total) by mouth nightly. 06/06/20 Active montelukast (SINGULAIR) 10 MG tablet Take 1 tablet (10 mg total) by mouth every morning. 08/16/20 Active Multiple Vitamin (Multi-Vitamin) tablet Take 1 tablet by mouth daily. Active polyethylene glycol (miraLAx) 17 GM/SCOOP powder Take 17 g by mouth every morning. Active PSEUDOEPHEDRINE- DM PO Take 1 tablet by mouth as needed. Active FIBER PO Take 1 tablet by mouth daily. Active Probiotic Product (PROBIOTIC PO) Take 1 tablet by mouth daily. Active dupilumab (DUPIXENT) 300 MG/2ML pen injector Inject under the skin every 14 days (2 weeks). Active SUPPLY DME MISCIndications: Scoliosis concern,Sacroili itis LSO: lumbosacral stability SI: Sacral stability 1 each 04/18/20 Active Dextromethorphan -guaiFENesin (Mucinex Cough & Chest Congest) 10-200 MG Cap Take 1 tablet by mouth 2 times a day. 07/10/20 Active albuterol (ACCUNEB) 0.63 MG/3ML nebulizer solution Take 3 mL (0.63 mg total) by nebulization 4 times daily (every 6 hours) as needed for wheezing. Active benzonatate (TESSALON) 200 MG capsule Take 1 capsule (200 mg total) by mouth nightly. 07/19/20 Active albuterol (PROVENTIL HFA; VENTOLIN HFA) 108 (90 Base) MCG/ACT inhaler Inhale 2 puffs 4 times daily (every 6 hours) as needed for wheezing. Active azelastine (ASTELIN) 0.1 % nasal spray 1 spray into each nostril 2 (two) times a day. Use in each nostril as directed Active vitamin B complex (b complex vitamins) capsule Take 1 capsule by mouth daily. Active Magnesium 200 MG Tab Take by mouth. Activ e diclofenac (VOLTAREN) 1 % gel Apply topically 4 (four) times a day. Use dosing card to measure dose. Apply to entire affect area. Active Cannabis (MARIJUANA) [facility] Medical Prescription Strength Inhale. Active guaiFENesin (MUCINEX) 600 MG 12 hr tablet Take 2 tablets (1,200 mg total) by mouth 2 (two) times a day. Active acetaminophen (TYLENOL) 325 MG tabletIndication s:HNP (herniated nucleus pulposus), cervical Take 3 tablets (975 mg total) by mouth 3 times daily (every 8 hours) as needed for mild pain. 08/13/20 25 Active methocarbamol (ROBAXIN) 500 MG tabletIndication s:HNP (herniated nucleus pulposus), cervical Take 1 tablet (500 mg total) by mouth 3 (three) times a day as needed for muscle spasms. 15 tablet 08/13/20 25 025 Active senna-docusate (SENNA-S) 8.6-50 MGIndications:HN P (herniated nucleus pulposus), cervical Take 2 tablets by mouth nightly. 08/13/20 25 Active oxyCODONE (ROXICODONE) 5 MG immediate release tabletIndication s:HNP (herniated nucleus pulposus), cervical Take 1 tablet (5 mg total) by mouth every 4 (four) hours as needed for moderate pain or severe pain. Max Daily Amount: 30 mg 20 tablet 08/13/20 25 Active traMADol (ULTRAM) 50 MG tabletIndication s:S/P cervical spinal fusion,Neck pain Take 1 tablet (50 mg total) by mouth 3 times daily (every 8 hours) as needed for severe pain. 42 tablet 1 08/21/20 25 Active methocarbamol (ROBAXIN) 750 MG tabletIndication s:S/P cervical spinal fusion,Neck pain Take 1 tablet (750 mg total) by mouth 4 (four) times a day. 120 tablet 08/21/20 25 025 Active budesonide (PULMICORT) 0.5 mg/2 mL nebulizer solution 2 ML NEB 2 TIMES A DAY 08/12/20 25 Active fluconazole (diFLUcan) 100 MG tabletIndication s:Chronic fungal laryngitis Take 1 tablet (100 mg total) by mouth daily. 21 tablet 09/04/20 25 025 Active famotidine (PEPCID) 10 MG tablet Take 2 tablets (20 mg total) by mouth 2 (two) times a day. Active acetaminophen (TYLENOL) 650 MG CR tablet Take 1 tablet (650 mg total) by mouth 3 times daily (every 8 hours) as needed for mild pain. Discontin ued(Stop Taking at Discharge ) ibuprofen (MOTRIN) 400 MG tablet Take 1 tablet (400 mg total) by mouth 4 times daily (every 6 hours) as needed for mild pain. Discontin ued(Stop Taking at Discharge ) traMADol (ULTRAM) 50 MG tablet Take 1 tablet (50 mg total) by mouth 3 times daily (every 8 hours) as needed for severe pain. Discontin ued(Stop Taking at Discharge ) fluconazole (diFLUcan) 100 MG tabletIndication s:Chronic fungal laryngitis Take 1 tablet (100 mg total) by mouth daily. Take 2 tablets PO day 1, then take 1 tablet PO days 2-5 for 5 days total 6 tablet 08/07/20 25 Discontin ued(Stop Taking at Discharge ) Active Problems Problem Noted Date Diagnosed Date HNP (herniated nucleus pulposus), cervical 08/13 Cervical radiculopathy 08/09/2025 Foraminal stenosis of cervical region 08/09/2025 Asthma, severe persistent 08/07/2025 Cervical nerve root compression 08/07/2025 Chronic sinusitis 08/07/2025 Congenital deformity of hip joint 08/07/2025 DDD (degenerative disc disease), lumbar 08/07/20 25 Dry mouth and eyes 08/07/2025 Fatigue 08/07/2025 Hyperlipidemia 08/07/2025 IBS (irritable bowel syndrome) 08/07/2025 Lumbar disc herniation with radiculopathy 2024 Multiple pulmonary nodules 08/07/2025 Memory change 08/07/2025 Vulvovaginal dryness 08/07/2025 Vertigo 08/07/2025 Uterine fibroid 08/07/2025 Polyuria 08/07/2025 Perennial allergic rhinitis 08/07/2025 Capillary disease 06/07/2025 Seborrheic keratosis 06/07/2025 Sacroiliitis 04/18/2025 Gastroesophageal reflux disease without esophagi tis 08/19/2024 Assessment & Plan (07/26/2025 9:45 AM EDT): ? Med Constipation 08/19/2024 Belching 08/19/2024 Chronic back pain 05/11/2024 Major depressive disorder, single episode, moder ate 05/11/2024 Hypertrichosis 05/06/2023 Anxiety disorder 02/02/2023 Disorder of pigmentation 02/02/2023 Nonthrombocytopenic purpura 02/02/2023 Local infection of skin and subcutaneous tissue 05/12/2022 Estrogen deficient vulvovaginitis 11/10/2019 Herpes genitalis in women 11/10/2019 Hormone replacement therapy 11/10/2019 Osteopenia 11/10/2019 Hirsutism 04/10/2019 Menopause syndrome 04/10/2019 Hip pain 11/05/2013 Overview (08/07/2025): Hip pain Sleep apnea Overview (07/26/2025): mild no CPAP Assessment & Plan (07/26/2025 9:43 AM EDT): ? 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 Recent exacerbation! Continue singulair, Wixela, & dupixent. Continue albuterol inhaler as needed. Glaucoma Assessment & Plan (07/26/2025 9:48 AM EDT): Continue eye drops. Depression Assessment & Plan (07/26/2025 9:49 AM EDT): Anxiety Stable. Continue trazodone. Elevated LFTs Assessment & Plan (07/26/2025 9:49 AM EDT): Repeat at [facility] - Menopause Assessment & Plan (07/26/2025 9:50 AM EDT): Continue estradiol patch & progesterone tablet. Resolved Problems Problem Noted Date Diagnosed Date Resolved Date Colon cancer screening 08/19/202409/17 Encounters Date Type Department Care Team Description 09/04/2025 1:40 PM EST Office Visit [id number] [address] [place] [address] Dina Dee PA-C S/P cervical spinal fusion (Primary Dx) 09/04/2025 10:00 AM EST Evaluation [facility] [address] [place] [address] Jimmie Boswell MD Marino, Judith A, [facility]-SHUFFLE BOARD OPERATOR Dysphonia (Primary Dx); Vocal fold edema; Chronic fungal laryngitis 09/04/2025 9:30 AM EST Office Visit [facility] [address] [address] Jimmie Boswell MD Dysphonia (Primary Dx); Vocal cord edema; Chronic fungal laryngitis 09/04/2025 Travel 08/28/2025 1:30 PM EDT Office Visit [facility] [address] [phone] Michele Sinclair MD Dysphonia (Primary Dx); Vocal cord edema 08/27/2025 Scanned Document [facility] [place] [address] [place] [address] Carson Vang MD 08/23/2025 9:56 AM EDT - 08/23/2025 11:59 PM EDT Hospital Encounter [facility] [address] [place] [address] Carson Vang MD Foraminal stenosis of cervical region; Cervical radiculopathy; Dysphagia, unspecified type Discharge Disposition: Home or Self Care 08/23/2025 Travel 08/13/2025 10:20 AM EDT Anesthesia Event [facility] [address] [place] [address] Mela Roa MD Gonzalez, Kimberly A, CRNA 08/13/2025 10:15 AM EDT - 08/13/2025 1:30 PM EDT Surgery [facility] [address] [place] [address] Carsno Vang MD C4-5 ACDF 08/13/2025 8:31 AM EDT - 08/13/2025 5:05 PM EDT Hospital Encounter [facility] [address] [place] [address] Carson Vang MD HNP (herniated nucleus pulposus), cervical (Primary Dx) Discharge Disposition: Home or Self Care 08/13/2025 Travel 08/09/2025 10:00 AM EDT Office Visit [facility] [place] [address] [facility] [address] [place] [phone] Carson Vang MD Foraminal stenosis of cervical region (Primary Dx); Cervical radiculopathy; Sacroiliitis; Dysphagia, unspecified type 08/09/2025 Scanned Document [facility] [place] [address] [place] [address] Carson Vang MD 08/09/2025 Travel 08/07/2025 8:00 AM EDT Office Visit [facility] [place] [address] [facility] [place] [address] Michele Sinclair MD Chronic fungal laryngitis (Primary Dx); Dysphonia; Vocal cord edema 08/02/2025 Scanned Document [facility] [place] [address] [place] [address] Dina Dee PA-C 07/26/2025 2:30 PM EDT Pre-Admission Testing [facility] [place] [address] [place] [address] Sharona Soares, Donya Goel APRN Preop examination (Primary Dx); Scoliosis concern; Sleep apnea, unspecified type; Asthma, unspecified asthma severity, unspecified whether complicated, unspecified whether persistent ; Gastroesophageal reflux disease without esophagitis; Glaucoma, unspecified glaucoma type, unspecified laterality ; Depression, unspecified depression type ; Elevated LFTs; Menopause 07/25/2025 Travel from Last 3 Months Immunizations Immunization Administration Dates Next Due Covid-19 mRNA Primary Series Vaccine - Moderna 0.5 mL Full Dose 01/09/2021 Influenza High-Dose Trivalen t,(FLUZONE HIGH-DOSE), Perservative Free IM 0.5 mL 65 years and older 08/10/2018,08/05/2017 Influenza Virus Trivalent Sp lit Vaccine (MDV) IM 08/12/2024,07/27/2023,09/22/2022,11/22,08/01/2020,08/10/2018,08/05/2017 ,08/13/2016,07/20/2015 Influenza, Quadrivalent (FLU AD) Adjuvanted Preservative Free IM 65 years and older 09/22/2022,11/22/2021 Influenza, Quadrivalent (FLU ARIX, AFLURIA, FLULAVAL, FLUZONE) Preservative Free IM 07/20/2015 Influenza, Quadrivalent (FLU CELVAX) MDCK, Preservative Free IM 08/13/2016 Influenza, Trivalent (FLUAD) Adjuvanted Preservative Free IM 65 years and older 08/17/2019 Pneumococcal Conjugate 13-Valent 08/01/2020 Pneumococcal Polysaccharide 23-Valent 04/23/2022 RSV, Recombinant, Protein Valdes bunit RSV Prefusion F (AREXVY), Adjuvant Recon 0.5 mL PF 08/20/2023 Tdap 08/12/2024,04/17/2020 Zoster Vaccine Recombinant (Shingrix) 03/21/2021 ,10/11/2020 Family History Medical History Relation Name Comments Heart disease Brother Kunal Baum AFIB Hypertension Brother Kunal Baum Alcohol abuse Father Kilo Baum Age 30 Arthritis Father Kilo Baum Cancer, other Father Kilo Baum Lung -- Age 7 5 Depression Father Kilo Baum Lung cancer Father Kilo Baum Mental illness Father Kilo Baum Bipolar -- a ge 50 Substance Abuse Father Kilo Baum Alcoholism Stroke Maternal Grandmother Jenn Lal Arthritis Mother Ashley Baum Cancer, other Mother Ashley Baum Bladder -- Age 75 Osteoporosis Mother Ashley Baum Stroke Mother Ashley Baum Age 70 Transient ischemic attack Mother Ashley Baum Relation Name Status Comments Brother Kunal Baum Alive Father Kilo Baum Maternal Grandmother Jenn Lal Alive Mother Ashley Baum Social History Tobacco Use Types Packs/Day Years Used Date Smoking Tobacco: Former Cigarettes 1.5 11 1 - 08/10/1980 Smokeless Tobacco: Never Tobacco Cessation:Counseling Given: Not Answered Alcohol Use Standard Drinks/Week Comments Not Currently [...] Orientation Heterosexual (straight) 04/04 8:56 PM EDT Last Filed Vital Signs Vital Sign Reading Time Taken Comments Blood Pressure 131/65 08/13/2025 2:20 PM EDT Pulse 88 08/13/2025 2:20 PM EDT Temperature 37.2 C (98.9 F) 08/13/2025 2:20 PM EDT Respiratory Rate 15 08/13/2025 2:20 PM EDT Oxygen Saturation 97% 08/13/2025 2:20 PM EDT Inhaled Oxygen Concentration - - Weight 57.2 kg (126 lb) 09/04/2025 1:14 PM EST Height 165.1 cm (5' 5 ) 09/04/2025 1:14 PM EST Body Mass Index 20.97 09/04/2025 1:14 PM EST Plan of Treatment Health Maintenance Due Date Last Done Comments Advance Care Planning 1950 Hepatitis C Virus Screening 1950 Chronic Controlled Substance Toxicology Screening 1970 Chronic Controlled Substance User PDMP Review 1970 Controlled Substance Agreement Initial and Annual Review 1970 Mammogram 1992 Colonoscopy 1997 DXA Bone Density (Females,Ages 65 and older) 2017 Influenza Vaccine 05/31/2025 08/12/2024, , 09/22/2022, Additional history exists COVID-19 Vaccine (9 - Moderna risk season) 2025 07/01/2024, 03/09/2024, 08/06/2023, Additional history exists DTaP/Tdap/Td Vaccines (3 - Td or Tdap) 08/12/2034 08/12/2024, 04/17/2020 Zoster (Shingles) Vaccine Completed 03/21/2021, 09/2020 Pneumococcal Vaccines 50+ Completed 04/23/2022, 12/2019 RSV Vaccine 50 years and older and Patients Completed 08/20/2023 Hepatitis B Vaccines Aged Out No long er eligible based on patient's age to complete this topic Goals Goal Patient Goal Type Associated Problems Recent Progress Patient-Stated? Author ST LTG 1 Speech Therapy Savita Raza, CCC-SHUFFLE BOARD OPERATOR Note: Patient and clinician will facilitate changes in vocal function in order to restore functional use of voice for daily occupational, social, and emotional demands. Patient will maximize efficiency of the vocal mechanism relative to existing laryngeal disorder through coordinating subsystems of voice within 12 weeks as evidenced by patient report and SHUFFLE BOARD OPERATOR observations. Patient will improve coordination of respiration and phonation for efficient vocal production at a conversational level. Patient will implement and adhere to vocal hygiene protocols on a daily basis, including the elimination of phonotraumatic behaviors. ST STG 1 Speech Therapy Savita Raza, CCC-SHUFFLE BOARD OPERATOR Note: Patient will complete SOVT exercises and/or [...] voice hygiene protocols on a daily basis. Medical Devices Implanted Type Area Time Buyer Device Identifier Shelf Expiration Date Model / Serial / Lot [id number] Cage Spinal 14x7mm Endoskeleton Tc 6d 12mm Sm Ti Radiopaque - [id number] Implanted:Qty: 1 on 08/13/2025 by Carson Vang MD at [facility] Cage N/A: Spine Cervical [employer] MINIMALLY INVASIVE T 12/27/2029 [id number] / / [id number] Plate Spine Cervical Anterior 17mm 1 Lvl Ti Bone Zevo - [id number] Implanted:Qty: 1 on 08/13/2025 by Carson Vang MD at [facility] Plate Spine Cervical [employer] MINIMALLY INVASIVE T [id number] / / [id number] Screw Bone Spine Cervical Anterior Zevo 13mm Ti 3.5mm Va - [id number] Implanted:Qty: 4 on 08/13/2025 by Carson Vang MD at [facility] Spine N/A: Spine Cervical [employer] MINIMALLY INVASIVE T [id number] / / [id number] Dbx Putty 0.5cc - [id number] Implanted:Qty: 1 on 08/13/2025 by Carson Vang MD at [facility] Void Filler N/A: Spine Cervical MUSCULOSKELETAL TRANSPLANT FOU 04/01/2027 [id number] / [id number] / Procedures Procedure Name Priority Date/Time Associated Diagnosis Comments CT LUMBAR SPINE W/O CONTRAST Routine 08/26/2025 10:24 AM EDT Sacroiliitis FL MODIFIED BARIUM SWALLOW W/SPEECH Routine 08/23/2025 10:51 AM EDT Foraminal stenosis of cervical region Cervical radiculopathy Dysphagia, unspecified type XR OR FLUORO <=1 HR (HH) Routine 08/13/2025 1:00 PM EDT XR CERVICAL SPINE 2 OR 3 VIEWS Routine 08/13/2025 1:00 PM EDT XR CERVICAL SPINE 2 OR 3 VIEWS STAT 08/13/2025 1:00 PM EDT ANES INTUBATION Routine 08/13/2025 11:01 AM EDT MA ARTHRD ANT INTERBODY DECOMPRESS CERVICAL BELW C2 08/13/2025 9:50 AM EDT Scoliosis concern Sacroiliitis S/P cervical spinal fusion Neck pain Special Needs C-ARM ON THE PATIENTS LEFT, POST OP: PACU, PENTERO MICROSCOPE ON THE PATIENTS RIGHT, [employer] ZEVO/TITAN, BERCHTOLD, HORSE-SHOE HEAD REST, SUPINE, CODMAN CURETTES, 3-0 VICRYL RB1, STERISTRIPS, BACITRACIN OINT, TELFA, TAGADERM MRI LUMBAR SPINE W/O CONTRAST Routine 08/12/2025 3:03 PM EDT ECG 12-LEAD Routine 07/26/2025 2:10 PM EDT Preop examination Scoliosis concern Sleep apnea, unspecified type Asthma, unspecified asthma severity, unspecified whether complicated, unspecified whether persistent Gastroesophageal reflux disease without esophagitis Glaucoma, unspecified glaucoma type, unspecified laterality Depression, unspecified depression type Elevated LFTs Menopause TYPE AND SCREEN Routine 07/26/2025 2:08 PM EDT Preop examination Scoliosis concern Sleep apnea, unspecified type Asthma, unspecified asthma severity, unspecified whether complicated, unspecified whether persistent Gastroesophageal reflux disease without esophagitis Glaucoma, unspecified glaucoma type, unspecified laterality Depression, unspecified depression type Elevated LFTs Menopause COMPREHENSIVE METABOLIC PANEL Routine 07/26/2025 2:03 PM EDT Preop examination Scoliosis concern Sleep apnea, unspecified type Asthma, unspecified asthma severity, unspecified whether complicated, unspecified whether persistent Gastroesophageal reflux disease without esophagitis Glaucoma, unspecified glaucoma type, unspecified laterality Depression, unspecified depression type Elevated LFTs Menopause TRANSFERRIN Routine 07/26/2025 2:03 PM EDT Preop examination Scoliosis concern Sleep apnea, unspecified type Asthma, unspecified asthma severity, unspecified whether complicated, unspecified whether persistent Gastroesophageal reflux disease without esophagitis Glaucoma, unspecified glaucoma type, unspecified laterality Depression, unspecified depression type Elevated LFTs Menopause PROTIME-INR Routine 07/26/2025 2:03 PM EDT Preop examination Scoliosis concern Sleep apnea, unspecified type Asthma, unspecified asthma severity, unspecified whether complicated, unspecified whether persistent Gastroesophageal reflux disease without esophagitis Glaucoma, unspecified glaucoma type, unspecified laterality Depression, unspecified depression type Elevated LFTs Menopause PARTIAL THROMBOPLASTIN TIME (PTT) Routine 07/26/2025 2:03 PM EDT Preop examination Scoliosis concern Sleep apnea, unspecified type Asthma, unspecified asthma severity, unspecified whether complicated, unspecified whether persistent Gastroesophageal reflux disease without esophagitis Glaucoma, unspecified glaucoma type, unspecified laterality Depression, unspecified depression type Elevated LFTs Menopause PREALBUMIN Routine 07/26/2025 2:03 PM EDT Preop examination Scoliosis concern Sleep apnea, unspecified type Asthma, unspecified asthma severity, unspecified whether complicated, unspecified whether persistent Gastroesophageal reflux disease without esophagitis Glaucoma, unspecified glaucoma type, unspecified laterality Depression, unspecified depression type Elevated LFTs Menopause HEMOGLOBIN A1C WITH ESTIMATED AVERAGE GLUCOSE Routine 07/26/2025 2:03 PM EDT Preop examination Scoliosis concern Sleep apnea, unspecified type Asthma, unspecified asthma severity, unspecified whether complicated, unspecified whether persistent Gastroesophageal reflux disease without esophagitis Glaucoma, unspecified glaucoma type, unspecified laterality Depression, unspecified depression type Elevated LFTs Menopause COMPLETE BLOOD COUNT, WITH DIFFERENTIAL Routine 07/26/2025 2:03 PM EDT Preop examination Scoliosis concern Sleep apnea, unspecified type Asthma, unspecified asthma severity, unspecified whether complicated, unspecified whether persistent Gastroesophageal reflux disease without esophagitis Glaucoma, unspecified glaucoma type, unspecified laterality Depression, unspecified depression type Elevated LFTs Menopause NASAL MRSA SCREEN, PCR Routine 07/26/2025 2:03 PM EDT Preop examination Scoliosis concern Sleep apnea, unspecified type Asthma, unspecified asthma severity, unspecified whether complicated, unspecified whether persistent Gastroesophageal reflux disease without esophagitis Glaucoma, unspecified glaucoma type, unspecified laterality Depression, unspecified depression type Elevated LFTs Menopause from Last 3 Months Results * CT Lumbar spine w/o contrast (08/26/2025 10:24 AM EDT) Anatomical Region Laterality Modality L-spine Computed Tomogra phy 08/26/2025 10:3 0 AM EDT 08/26/2025 10:30 AM EDT Impressions 09/05/2025 12:35 PM EST 1. Multilevel degenerative changes of the lumbar spine. 2. L3-L4 right-sided posterior lateral/foraminal protrusion. 3. L5-S1 left-sided vertebral body osteophyte fuses with the sacrum ala resulted in severe L5-S1 left-sided foraminal and extraforaminal stenosis compatible with Bertolottis syndrome. Electronically signed by: Ladarius Low MD 09/05/2025 12:35 PM EST RP Thank you for referring your patient to us, Ladarius Low MD [phone] (Electronically Signed - 09/05/2025 12:35) Copy: PATIENT , Narrative 09/05/2025 12:35 PM EST EXAMINATION: CT LUMBAR SPINE WITHOUT CONTRAST. INDICATION: 75 years old, Female possibility of left Bertolotti syndrome; please include to S2 TECHNIQUE: Multiple-row detector helical CT examination of the lumbar spine without IV contrast. Sagittal and coronal reformations were generated. This CT examination was performed using dose optimization techniques as appropriate, variously including the following: *Automated exposure control *Adjustment of mA and/or kV according to patient size (this includes techniques or standardized protocols for targeted exams where dose is matched to indication/reason for exam; i.e. extremities or head) *Use of iterative reconstruction technique DLP: 319 mGy-cm COMPARISON: March 15, 2025.. FINDINGS: ANATOMY AND ALIGNMENT: Five lumbar vertebrae are identified. Levoscoliosis in the lumbar spine. VERTEBRAE: The height and density of the lumbar vertebral bodies are preserved. No acute fracture or traumatic dislocation. No suspicious osteoblastic or sclerotic lesions. INTERVERTEBRAL DISCS AND MOTION SEGMENTS: L1-L2: Grade 1 retrolisthesis. No disc herniation. No spinal canal or foraminal narrowing. L2-L3: Grade 1 retrolisthesis. Moderate ligamentum flavum hypertrophy. No disc herniation. No spinal canal or foraminal narrowing. L3-L4: Right-sided posterior lateral/foraminal protrusion. No high-grade spinal canal stenosis. L4-L5: Disc bulge. Ligamentum flavum hypertrophy and moderate facet arthropathy with at least moderate spinal canal stenosis. L5-S1: Disc space narrowing. Calcified central protrusion. Ligamentum flavum hypertrophy and facet arthropathy results in moderate spinal canal stenosis. Large osteophyte arising from the left vertebral body forms a false joint or fuses with the sacrum resulted in severe left-sided foraminal and extraforaminal stenosis. 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 PARASPINAL SOFT TISSUES: No soft tissue abnormalities in the visualized paraspinal soft tissues. Procedure Note Ladarius Low MD - 09/05/2025 EXAMINATION: CT LUMBAR SPINE WITHOUT CONTRAST. INDICATION: 75 years old, Female possibility of left Bertolotti syndrome;please include to S2 TECHNIQUE: Multiple-row detector helical CT examination of the lumbarspine without IV contrast. Sagittal and coronal reformations weregenerated. This CT examination was performed using dose optimizationtechniques as appropriate, variously including the following: *Automated exposure control *Adjustment of mA and/or kV according to patient size (this includestechniques or standardized protocols for targeted exams where dose ismatched to indication/reason for exam; i.e. extremities or head) *Use of iterative reconstruction technique DLP: 319 mGy-cm COMPARISON: March 15, 2025.. FINDINGS: ANATOMY AND ALIGNMENT: Five lumbar vertebrae are identified. Levoscoliosisin the lumbar spine. VERTEBRAE: The height and density of the lumbar vertebral bodies arepreserved. No acute fracture or traumatic dislocation. No suspiciousosteoblastic or sclerotic lesions. INTERVERTEBRAL DISCS AND MOTION SEGMENTS: L1-L2: Grade 1 retrolisthesis. No disc herniation. No spinal canal orforaminal narrowing. L2-L3: Grade 1 retrolisthesis. Moderate ligamentum flavum hypertrophy. Nodisc herniation. No spinal canal or foraminal narrowing. L3-L4: Right-sided posterior lateral/foraminal protrusion. No high-gradespinal canal stenosis. L4-L5: Disc bulge. Ligamentum flavum hypertrophy and moderate facetarthropathy with at least moderate spinal canal stenosis. L5-S1: Disc space narrowing. Calcified central protrusion. Ligamentumflavum hypertrophy and facet arthropathy results in moderate spinal canalstenosis. 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 PARASPINAL SOFT TISSUES: No soft tissue abnormalities in the visualizedparaspinal soft tissues. IMPRESSION: 1. Multilevel degenerative changes of the lumbar spine. 2. L3-L4 right-sided posterior lateral/foraminal protrusion. 3. L5-S1 left-sided vertebral body osteophyte fuses with the sacrum alaresulted in severe L5-S1 left-sided foraminal and extraforaminal stenosiscompatible with Bertolottis syndrome. Electronically signed by: Ladarius Low MD 09/05/2025 12:35 PM Neema Thank you for referring your patient to us, Ladarius Low MD [phone] (Electronically Signed - 09/05/2025 12:35) Copy: PATIENT , us Carson Vang MD IMG CT ORDERABLES Final Result * FL Modified barium swallow w/speech (08/23/2025 10:51 AM EDT) Anatomical Region Laterality Modality Radio Fluoroscop y 08/23/2025 10:3 2 AM EDT Impressions 08/26/2025 1:34 PM EDT 1. No evidence of aspiration or penetration. See speech pathology recommendations for further information. Narrative 08/26/2025 1:34 PM EDT EXAMINATION: MODIFIED BARIUM SWALLOW CLINICAL INFORMATION: M48.02-Foraminal stenosis of cervical region; M54.12-Cervical radiculopathy; R13.10-Dysphagia, unspecified type; difficulty swallowing, Cervical radiculopathy COMPARISON: None. TECHNIQUE: Videotaped real-time fluoroscopic evaluation of the patient's swallow was performed in conjunction with speech therapy through the administration of various textured food and barium. The patient was in a left seated lateral position FLUOROSCOPY TIME: 1.3 minutes of fluoroscopic time was utilized. DOSE AREA PRODUCT: 12.7 dGy-cm2 FINDINGS: Patient swallowed contrast without difficulty. No aspiration or penetration with any consistency. Thin, mildly thick, moderately thick, pudding and solid barium consistencies were tested. 13 mm barium tablet was swallowed without difficulty. Limited AP evaluation of the esophagus was unremarkable. Procedure Note Hans Giron MD - 08/26/2025 EXAMINATION: MODIFIED BARIUM SWALLOW CLINICAL INFORMATION: M48.02-Foraminal stenosis of cervical region; M54.12-Cervical radiculopathy; R13.10-Dysphagia, unspecified type; difficulty swallowing, Cervical radiculopathy COMPARISON: None. TECHNIQUE: Videotaped real-time fluoroscopic evaluation of the patient's swallow was performed in conjunction with speech therapy through the administration of various textured food and barium. The patient was in a left seated lateral position FLUOROSCOPY TIME: 1.3 minutes of fluoroscopic time was utilized. DOSE AREA PRODUCT: 12.7 dGy-cm2 FINDINGS: Patient swallowed contrast without difficulty. No aspiration or penetration with any consistency. Thin, mildly thick, moderately thick, pudding and solid barium consistencies were tested. 13 mm barium tablet was swallowed without difficulty. Limited AP evaluation of the esophagus was unremarkable. IMPRESSION: 1. No evidence of aspiration or penetration. See speech pathology recommendations for further information. Carson Vang MD IM FLUOROSCOPY ORDERABLES Fin al Result * XR OR FLUORO <=1HR () (08/13/2025 1:00 PM EDT) Anatomical Region Laterality Modality Computed Radiogr aphy 08/13/2025 11:3 5 AM EDT Addenda Addendum by Colten Florian DO on 08/13/2025 1:24 PM EDT ADDENDUM #1 This critical result was discussed with Dr. Vang at 12:11 PM on 08/13/2025 and it was ascertained that the content and urgency of the report was understood at the time of direct communication. Impressions 08/13/2025 1:11 PM EDT Fluoroscopic images demonstrate pre-existing posterior fusion hardware from C3 through C5. Fluoroscopic images demonstrate localization of the C4-5 level and placement of an intervertebral disc spacer. Fluoroscopic images at the end of the procedure demonstrate a plate and screws affixed to the C4-5 vertebral bodies. There is straightening of the cervical lordosis. This critical result was discussed with Dr. Vang at 1:11 PM on 08/13/2025 and it was ascertained that the content and urgency of the report was understood at the time of direct communication. Narrative 08/13/2025 1:11 PM EDT EXAMINATION: Cervical spine radiographs CLINICAL INFORMATION: C4-5 ACDF. COMPARISON: Cervical spine radiographs dated May 17, 2025. TECHNIQUE: Multiple fluoroscopic images are presented for review. FINDINGS / Procedure Note Colten Florian DO - 08/13/2025 EXAMINATION: Cervical spine radiographs CLINICAL INFORMATION: C4-5 ACDF. COMPARISON: Cervical spine radiographs dated May 17, 2025. TECHNIQUE: Multiple fluoroscopic images are presented for review. FINDINGS / IMPRESSION: Fluoroscopic images demonstrate pre-existing posterior fusion hardware from C3 through C5. Fluoroscopic images demonstrate localization of the C4-5 level and placement of an intervertebral disc spacer. Fluoroscopic images at the end of the procedure demonstrate a plate and screws affixed to the C4-5 vertebral bodies. There is straightening of the cervical lordosis. This critical result was discussed with Dr. Vang at 1:11 PM on 08/13/2025 and it was ascertained that the content and urgency of the report was understood at the time of direct communication. Carson Vang MD IMG FLUOROSCOPY ORDERABLES Sebastián valentina Result - Final * XR Cervical spine 2 or 3 views (08/13/2025 1:00 PM EDT) Only the most recent of2 resultswithin the time period is included. Anatomical Region Laterality Modality C-spine Computed Radiogr aphy 08/13/2025 11:3 5 AM EDT Addenda Addendum by Colten Florian DO on 08/13/2025 1:24 PM EDT ADDENDUM #1 This critical result was discussed with Dr. Vang at 12:11 PM on 08/13/2025 and it was ascertained that the content and urgency of the report was understood at the time of direct communication. Impressions 08/13/2025 1:11 PM EDT Fluoroscopic images demonstrate pre-existing posterior fusion hardware from C3 through C5. Fluoroscopic images demonstrate localization of the C4-5 level and placement of an intervertebral disc spacer. Fluoroscopic images at the end of the procedure demonstrate a plate and screws affixed to the C4-5 vertebral bodies. There is straightening of the cervical lordosis. This critical result was discussed with Dr. Vang at 1:11 PM on 08/13/2025 and it was ascertained that the content and urgency of the report was understood at the time of direct communication. Narrative 08/13/2025 1:11 PM EDT EXAMINATION: Cervical spine radiographs CLINICAL INFORMATION: C4-5 ACDF. COMPARISON: Cervical spine radiographs dated May 17, 2025. TECHNIQUE: Multiple fluoroscopic images are presented for review. FINDINGS / Procedure Note Colten Florian DO - 08/13/2025 EXAMINATION: Cervical spine radiographs CLINICAL INFORMATION: C4-5 ACDF. COMPARISON: Cervical spine radiographs dated May 17, 2025. TECHNIQUE: Multiple fluoroscopic images are presented for review. FINDINGS / IMPRESSION: Fluoroscopic images demonstrate pre-existing posterior fusion hardware from C3 through C5. Fluoroscopic images demonstrate localization of the C4-5 level and placement of an intervertebral disc spacer. Fluoroscopic images at the end of the procedure demonstrate a plate and screws affixed to the C4-5 vertebral bodies. There is straightening of the cervical lordosis. This critical result was discussed with Dr. Vang at 1:11 PM on 08/13/2025 and it was ascertained that the content and urgency of the report was understood at the time of direct communication. Carson Vang MD IMG DIAGNOSTIC IMAGING ORDERAB LES Edited Result - Final * ANES INTUBATION (08/13/2025 11:01 AM EDT) Narrative Belem Denny CRNA - 08/13/2025 11:01 AM EDT Belem Denny CRNA 08/13/2025 11:04 AM Anesthesia Procedure Note - Elective intubation Patient Name: Marilu Baum : 1950 Patient location: OR Procedure indications: airway protection Procedure diagnosis: Anesthesia Performed by: Resident/INVESTIGATION MANAGER Belem Denny CRNA Chart Verification Airway: airway not difficult Preanesthetic Checklist monitors and equipment checked. Patient's pre-procedure mental status: awake The patient was sedated prior to procedure. Current level of sedation: general anesthesia Airway not difficult - NPO status: > 8 hours Procedure Details Intubation route: oral Intubation method: video laryngoscopy (elective G/S intubation - Grade I VVC) GS 3 Number of attempts: 1 Patient status for intubation: unresponsive (anesthetized for intubation) Patient position: supine Preoxygenation: BVM Quality of BVM: easy Tube size: 7.0 mm Tube: standard - cuffed and cuff inflated Cord visualization: Grade I Placement confirmation method: chest rise and ETCO2 monitor Breath sounds: equal bilaterally ETT to lip: 21 cm Dentition: same as baseline Complications: no complications Mela Roa MD [place] ANESTHESIA Final Result * MRI Lumbar spine w/o contrast (08/12/2025 3:03 PM EDT) Anatomical Region Laterality Modality L-spine Magnetic Resonan ce us Belem Diaz MD IMG MRI ORDERABLES Final R esult * Electrocardiogram, 12-lead (07/26/2025 2:10 PM EDT) Ventricular rate 64 BPM EKG [facility] Atrial rate 64 BPM EKG [facility] P-R interval 126 ms EKG [facility] QRS duration 76 ms EKG [facility] Q-T interval 420 ms EKG [facility] QTC calculation (Bazett) 434 ms EKG [facility] P axis 71 degrees EKG [facility] R axis 50 degrees EKG [facility] T axis 62 degrees EKG [facility] 07/26/2025 2:10 PM EDT Narrative EKG [facility] - 07/26/2025 2:34 PM EDT Normal sinus rhythm Normal ECG No previous ECGs available Confirmed by MD Mckay Christopher ([id number]) on 07/26/2025 2:34:51 PM Procedure Note Frank Mckay MD - 07/26/2025 Normal sinus rhythm Normal ECG No previous ECGs available Confirmed by MD Mckay Christopher ([id number]) on 07/26/2025 2:34:51 PM Donya Stearns DIRECTOR CALL ECG ORDERABLES Final Result Performing Organization Address [facility] Co de Phone Number EKG [facility] * Type and Screen (07/26/2025 2:08 PM EDT) ABO/Rh A POSITIVE 07/26/2025 8:42 PM EDT [facility] Antibody Screen NEGATIVE 07/26/2025 8:42 PM EDT [facility] Specimen Expiration 08/25/2025 07/26/2025 8:14 PM EDT [facility] or transfused in last 3 months? NO 07/26/2025 7:55 PM EDT [facility] Blood Bank Comment Second Sample needed for Blood Transfusion 07/26/2025 8:42 PM EDT [facility] Blood Blood specimen / Unknown 07/26/2025 2:08 PM EDT 07/26/2025 7:55 PM EDT Donya Stearns DIRECTOR CALL BLOOD BANK TEST ORDERABLES F inal Result Performing Organization Address [facility] [place] [address], [address] [address] * Hemoglobin A1c with Estimated Average Glucose (07/26/2025 2:03 PM EDT) Hemoglobin A1C 5.4 <5.7 % 07/26/2025 9:00 PM EDT [facility] Comment: A1c% Interpretation 5.7 - 6.0 Increase risk of diabetes 6.1 - 6.4 Higher risk of diabetes > or = 6.5 Consistent with diabetes Diabetes Care, 33(Supp 1):S1-S61, 2009 Estimated Average Glucose 108 mg/dL 07/26/2025 9:00 PM EDT [facility] Blood Blood specimen / Unknown 07/26/2025 2:03 PM EDT 07/26/2025 6:57 PM EDT Donya Braswellujo DIRECTOR CALL LAB BLOOD ORDERABLES Final R esult [address] [address], [address] [address] * (ABNORMAL) Complete Blood Count, with Differential (07/26/2025 2:03 PM EDT) White Blood Cell Count 8.5 4.0 - 11.0 Thou/uL 07/26/2025 7:24 PM [facility] Platelet Count 261 150 - 450 Thou/uL 07/26/2025 7:24 PM [facility] Hemoglobin 13.6 11.7 - 15.7 g/dL 07/26/2025 7:24 PM [facility] Hematocrit 41.4 35.0 - 47.0 % 07/26/2025 7:24 PM [facility] Red Blood Cell Count 4.12 4.00 - 5.40 Mil/uL 07/26/2025 7:24 PM [facility] MCV 101(H) 80 - 100 fL 07/26/2025 7:24 PM [facility] MCH 33.0(H) 27.0 - 31.0 pg 07/26/2025 7:[facility] MCHC 32.9 30.0 - 36.0 g/dL 07/26/2025 7:24 [facility] RDW 13.2 11.5 - 14.5 % 07/26/2025 7:24 PM [facility] MPV 9.7 7.5 - 12.5 fL 07/26/2025 7:24 PM [facility] Neutrophils Auto 69.5 % 07/26/20 7:24 [facility] Immature Granulocytes 0.4 % 07/26/2025 7:24 [facility] Lymphocytes Auto 16.8 % 09/26/20 25 7:24 PM EDT [facility] Monocytes Auto 8.7 % 07/26/2025 7:24 PM EDT [facility] Eosinophils Auto 3.9 % 07/26/20 7:24 PM EDT [facility] Basophils Auto 0.7 % 07/26/2025 7:24 PM EDT [facility] Abs Neutrophils Auto 5.88 2.00 - 7.50 Thou/uL 07/26/2025 7:24 PM EDT [facility] Abs Immature Granulocytes 0.03 0.00 - 0.10 Thou/uL 07/26/2025 7:24 PM EDT [facility] Abs Lymphocytes Auto 1.42(L) 1.50 - 4.50 Thou/uL 07/26/2025 7:24 PM EDT [facility] Abs Monocytes Auto 0.74 0.20 - 1.50 Thou/uL 07/26/2025 7:24 PM EDT [facility] Abs Eosinophils Auto 0.33 0.00 - 0.70 Thou/uL 07/26/2025 7:24 PM EDT [facility] Abs Basophils Auto 0.06 0.00 - 0.20 Thou/uL 07/26/2025 7:24 PM EDT [facility] Blood Blood specimen / Unknown 07/26/2025 2:03 PM EDT 07/26/2025 6:57 PM EDT us Donya Stearns APRN LAB BLOOD ORDERABLES [place] [address], [place] [address] * Nasal MRSA Screen, PCR (07/26/2025 2:03 PM EDT) [facility] MRSA Result Not Detected Not Detected 9:23 PM EDT [facility] Comment:Performed by the Xpe rt MRSA NxG Assay Swab, Nasal Specimen from nose / Unknown 07/26/2025 2:03 PM EDT 07/26/2025 6:56 PM EDT us Donya Stearns APRN MICROBIOLOGY - GENERAL ORDER ZA Final Result Performing Organization Address City/[facility]/ZIP Co de Phone Number [address] [address], [address] [address] * Partial Thromboplastin Time (PTT) (07/26/2025 2:03 PM EDT) Anticoagulant Information not given 07/26/2025 9:52 AM EDT [facility] Partial Thromboplastin Time (PTT) 28 25 - 36 seconds 07/26/2025 7:36 PM EDT [facility] Blood Blood specimen / Unknown 07/26/2025 2:03 PM EDT 07/26/2025 6:57 PM EDT Donya Stearns APRN LAB BLOOD ORDERABLES Final R esult Performing Organization Address [facility] [place] [address], [address] [address] * Protime-INR (07/26/2025 2:03 PM EDT) Anticoagulant Information not given 07/26/2025 9:52 AM EDT [facility] Prothrombin Time (PT) 10.1 10.0 - 13.5 seconds 07/26/2025 7:36 PM EDT [facility] INR 0.9 07/26/2025 7:36 PM EDT [facility] Comment:INR Therapeutic Rang es: Standard dose anticoagulant 2.0 to 3.0, High dose anticoagulant 2.5-3.5. Blood Blood specimen / Unknown 07/26/2025 2:03 PM EDT 07/26/2025 6:57 PM EDT Donya Stearns APRN LAB BLOOD ORDERABLES Final R esult Performing Organization Address City/[facility]/[place] [address], [address] [address] * Transferrin (07/26/2025 2:03 PM EDT) Transferrin 215 200 - 360 mg/dL 07/26/2025 7:41 PM EDT [facility] Blood Blood specimen / Unknown 07/26/2025 2:03 PM EDT 07/26/2025 6:57 PM EDT Donya Stearns DIRECTOR CALL LAB BLOOD ORDERABLES Final R esult Performing Organization Address City/[facility]/[place] [address], [place] [address] * Prealbumin (07/26/2025 2:03 PM EDT) Prealbumin 25 20 - 40 mg/dL 07/26/2025 7:41 PM EDT [facility] Blood Blood specimen / Unknown 07/26/2025 2:03 PM EDT 07/26/2025 6:57 PM EDT us Donya Stearns APRN LAB BLOOD ORDERABLES Final R esult Performing Organization Address City/[facility] [place] [address], [place] [address] * Comprehensive Metabolic Panel (07/26/2025 2:03 PM EDT) Glucose 88 65 - 99 mg/dL 07/26/2025 7:41 PM EDT [facility] Comment:Fasting: <100 mg/dL, Non-Fasting: <200 mg/dL (ADA 2004) Blood Urea Nitrogen (BUN) 19 8 - 21 mg/dL 07/26/2025 7:41 PM EDT [facility] Creatinine 0.89 0.40 - 1.10 mg/dL 07/26/2025 7:41 PM [facility] eGFR 68 >59 07/26/2025 7:41 PM T [facility] Comment:CKD-EPI (2020) in mL /min/1.73 sq meters. Sodium 140 136 - 145 mmol/L [facility]2025 7[facility] Potassium 3.8 3.4 - 5.3 mmol/L 07/26/2025 7:41 PM [facility] Chloride 103 98 - 107 mmol/L 07/26/2025 7:41 PM [facility] CO2 25 22 - 33 mmol/L 07/26/2025 7:41 PM [facility] Calcium 9.2 8.7 - 10.5 mg/dL 07/26/2025 7:[facility] Alkaline Phosphatase 71 32 - 122 U/L 07/26/2025 7:41 PM [facility] Aspartate Aminotrans (AST) 33 10 - 50 U/L 07/26/2025 7:41 PM [facility] Alanine Aminotrans (ALT) 27 10 - 50 U/L 07/26/2025 7:41 PM [facility] Bilirubin, Total 0.2 0.2 - 1.0 mg/dL 07/26/2025 7:41 PM [facility] Protein, Total 6.9 6.3 - 8.3 g/dL 07/26/2025 7:41 PM [facility] Albumin 4.0 3.4 - 4.8 g/dL 07/26/2025 7:41 PM [facility] BUN/Creatinine Ratio 21 10.0 - 25.0 Ratio 07/26/2025 7:41 PM [facility] Globulin 2.9 1.5 - 3.9 g/dL 07/26/2025 7:41 PM [facility] Albumin/Globulin Ratio 1.4 1.0 - 3.0 Ratio 07/26/2025 7:41 PM [facility] Anion Gap 12 7 - 17 07/26/2025 7:41 PM [facility] Blood Blood specimen / Unknown 07/26/2025 2:03 PM EDT 07/26/2025 6:57 PM EDT us Donya Stearns DIRECTOR CALL LAB BLOOD ORDERABLES Final R esult [address] [address], [address] [place] [address] from Last 3 Months Insurance BLUE [employer] MEDICARE - [id number] [employer] MEDICARE OUT OF NETWORK [employer] MEDICARE OUT OF NETWORK Advance Directives * Full Code (Latest Code Status on File) Date Activated Date Inactivated Comments 08/13/2025 2:08 PM * Full Code Date Activated Date Inactivated Comments 08/13/2025 8:34 AM 08/13/2025 2:08 PM Care Teams Fire Alarm Dispatcher Relationship Specialty Start Date End Date Belem Diaz MD [address] [place] [address] PCP - General Internal Medicine 02/03/24 Gosia Gonzalez DO [address] [place] [address] [place] [address] Physician Gastroenterology 06/29/24 [facility] [address] [place] [address] Nurse Navigator Surgery, Neurosurgery 04/18/25 Carson Vang MD [address] [address] Surgery, Neurosurgery 05/28/25 System, Provider Not In [address] [place] [id number] Pulmonary Disease 05/28/25
--- OUTSIDE RECORDS SUMMARY | 2025-09-06 08:54 | XMS_ITS | Clinical Summary ---
Author Organization [facility] Address [address] [place] [address] Care Team Providers Care Land Surveying Survey Worker Name Role Phone Belem Diaz MD Primary Care Provider Unava ilable Allergies No known active allergies Medications Medication Sig Dispensed Refills Start Date End Date Status estradiol (ESTRACE) 0.5 MG tablet take 1 tablet by mouth once daily 90 Tab 0 10/03/2017 Active montelukast (SINGULAIR) 10 MG tablet Take 10 mg by mouth at bedtime. 0 Active FLUTICASONE FUROATE NA by Nasal route as needed. 0 Active ALBUTEROL IN Inhale into the lungs as needed. 0 Active trazodone (DESYREL) 50 MG tablet Take 50 mg by mouth at bedtime. 0 Active esomeprazole (NEXIUM) 40 MG capsule Take 40 mg by mouth every morning (before breakfast). 0 Active Multiple Vitamins-Minerals (MULTIVITAMIN OR) Take 1 Tab by mouth daily. 0 Active Magnesium 400 MG Tab Take 1 Tab by mouth daily. 0 Active Probiotic Product (PROBIOTIC OR) Take 1 Tab by mouth daily. 0 Active acetaminophen (TYLENOL) 325 MG tablet Take 650 mg by mouth every 6 hours as needed. 0 Active Cetirizine HCl 10 MG Cap Take 1 Tab by mouth daily. 0 Active Glucosamine-Chondroiti n-MSM (TRIPLE FLEX OR) Take 1 Tab by mouth daily. 0 Active Naproxen Sodium 220 MG Cap Take 1 Tab by mouth as needed. 0 Active [place]-3 Fatty Acids (FISH OIL OR) Take 1 Tab by mouth daily. 0 Active medroxyPROGESTERone (PROVERA) 2.5 MG tablet Take 1 Tab by mouth daily for 360 days. 90 Tab 4 01/17/2018 Active Melatonin 5 MG Tab Take by mouth. 1 at bedtime 0 Active Zoledronic Acid (RECLAST) 5 MG/100ML Solution Inject 1 Dose into the vein Once. 100 mL 0 04/10/2018 Active Family History Medical History Relation Name Comments CA Colon Other paternal Aunt 6 0's-70's Relation Name Status Comments Other Social History Tobacco Use Types Packs/Day Years Used Date Smoking Tobacco: Former Smokeless Tobacco: Never Alcohol Use Standard Drinks/Week Comments Yes 0 (1 standard drink = 0.6 oz pur e alcohol) 1-2 per day Sex Assigned at Date Recorded Not on file Last Filed Vital Signs Vital Sign Reading Time Taken Comments Blood Pressure 100/66 04/07/2018 3:55 PM EDT Pulse 72 04/07/2018 3:55 PM EDT Temperature - - Respiratory Rate 12 10/06/2017 4:07 PM EST Oxygen Saturation - - Inhaled Oxygen Concentration - - Weight 59.9 kg (132 lb) 04/07/2018 3:55 PM EDT Height 165.1 cm (5' 5 ) 04/07/2018 3:55 PM EDT Body Mass Index 21.97 04/07/2018 3:55 PM EDT Plan of Treatment Health Maintenance Due Date Last Done Comments Covid-19 Vaccine (#1) 1950 HEPATITIS C SCREENING 1970 DTAP/TDAP/TD (1 - Tdap) 1971 CHOLESTEROL SCREENING 1972 COLON CANCER SCREENING 2002 SHINGLES VACCINE (1 of 2) 2002 BONE DENSITY SCREENING 2017 PNEUMOCOCCAL VACCINE (1 - PCV) 2017 MAMMOGRAM 03/24/2019 03/24/2018 BMI CHECK/ADVISE 10/31/2024 INFLUENZA (#1) 2025 Care Teams Land Surveying Survey Worker Relationship Specialty Start Date End Date Belem Diaz MD PCP - General Internal Medicine 08/24/17
== END 2025-09-06 09:44 | disposition home or self-care (01) ==
LOC: HO.HMCHD 08:24
PROVIDERS: PCP Internal Medicine; Visit Provider Internal Medicine
DX: Z00.00 Encounter for general adult medical examination without abnormal findings (principal); F41.9 Anxiety disorder, unspecified; F32.A Depression, unspecified; K21.9 Gastro-esophageal reflux disease without esophagitis; M54.12 Radiculopathy, cervical region

== ENCOUNTER → 2025-09-06 08:23 | Outpatient (BNVA) | payer MEDICARE, SELFPAY | PROVIDERS: PCP Internal Medicine; Visit Provider Internal Medicine | DX: Z00.00 Encounter for general adult medical examination without abnormal findings (principal); F41.9 Anxiety disorder, unspecified; F32.A Depression, unspecified; K21.9 Gastro-esophageal reflux disease without esophagitis; M54.12 Radiculopathy, cervical region; R91.8 Other nonspecific abnormal finding of lung field; M54.50 Low back pain, unspecified; J04.0 Acute laryngitis; Z91.09 Other allergy status, other than to drugs and biological substances; Z13.39 Encounter for screening examination for other mental health and behavioral disorders; Z13.30 Encounter for screening examination for mental health and behavioral disorders, unspecified | CPT/HCPCS: 96127; 99397 ==

== ENCOUNTER 2025-09-09 09:14 | Outpatient (REF) | payer MEDICARE, SELFPAY ==
--- OUTSIDE RECORDS SUMMARY | 2025-09-04 09:30 | XMS_ITS | Encounter Summary ---
Author Organization [facility] Address [address] [place] [address] Care Team Providers Care Soap Slabber Name Role Phone Belem Diaz MD Primary Care Provider [phone] Gosia Gonzalez DO Unavailable [phone] Shruti Hu RN Unavailable Carson Vang MD Unavailable [phone] System, Provider Not In Unavailable Unavaila ble Reason for Visit * Reason Comments Other Dysphonia Encounter Details Date Type Department Care Team (Late st Contact Info) Description 09/04/2025 9:30 AM EST Office Visit [facility] [place] [address] [place] [address] Jimmie Boswell MD [address] [place] [address] Dysphonia (Primary Dx); Vocal cord edema; Chronic fungal laryngitis Social History Tobacco Use Types Packs/Day Years Used Date Smoking Tobacco: Former Cigarettes 1.5 11 1 - 08/10/1980 Smokeless Tobacco: Never Alcohol Use Standard Drinks/Week Comments Not Currently 20 (1 standard drink = 0.6 oz pure alcohol) Advised to avoid 2 wks prior to sx AUDIT-C Answer Date Recorded Q1: How often do you have a drink containing alcohol? 4 or more times a week 07/25/2025 Q2: How many drinks containi ng alcohol do you have on a typical day when you are drinking? 1 or 2 Q3: How often do you have si x or more drinks on one occasion? Never 07/25/2025 Comments No Sex and Gender Information Value Date Recorded Sex Assigned at Female 04/04/2024 8:56 PM EDT Legal Sex Female 3:52 PM EDT Gender Identity Female 04/04/2024 8:56 PM EDT Sexual Orientation Heterosexual (straight) 04/04 8:56 PM EDT documented as of this encounter Last Filed Vital Signs Vital Sign Reading Time Taken Comments Blood Pressure - - Pulse - - Temperature - - Respiratory Rate - - Oxygen Saturation - - Inhaled Oxygen Concentration - - Weight 56.2 kg (124 lb) 09/04/2025 9:11 AM EST Height 165.1 cm (5' 5 ) 09/04/2025 9:11 AM EST Body Mass Index 20.63 09/04/2025 9:11 AM EST documented in this encounter Progress Notes * Jimmie Boswell MD - 09/04/2025 9:30 AM EST Images from the original note were not included. [address] [facility] [address] Phone: [phone] Date of Encounter: 09/04/2025 History of Present Illness: Marilu Baum is a 75 y.o. female who presents for further evaluation/management of hoarseness. She complains of difficulty with her voice. She characterizes a raspy voice with pitch breaks. Onset was fairly sudden, beginning with a bad protracted cough for 2 weeks. Duration is a couple months.Time course is constant. Symptoms are stable. Exacerbating factors include voice use. She denies any alleviating factors. Associated symptoms include frequent throat clearing due to the sensation of excess postnasal drip, which sometimes turns into coughing.nevertheless, she coughs far less than she did at the time of the onset of her symptoms. 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 She does acknowledge that even before the cough, her voice would fatigue toward the end of the day. She acknowledges ongoing frequent throat clearing and coughing, although she is coughing far less than she was at the time of the onset of her symptoms. She has asthma, on an inhaled steroid. It had been Wixela BID for a while, but she has stopped that but is doing budesonide nebs every other day. She recently completed a 5-day course of Diflucan, without any meaningful improvement in her symptoms. Her maintenance engineer Rx'd prednisone x 10 days back in July. This did not provide any appreciable symptomatic benefit. She does have a long history of reflux. Years ago, they found that PPIs were not working to controlher symptoms. 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 She has trialed alginate based therapy, without any symptomatic benefit. She just underwent a C4-C5 fusion. Had very brief worsening of her voice, but it has settled back to baseline level of impairment. Past Medical History She has a past medical history of Anxiety, Arthritis (1983), Asthma, Bruises easily (1999), Chronicback pain, Constipation, Cough (2022), COVID-19 (10/2023), Depression, Elevated LFTs, Esophageal stricture (2011), Genital herpes, GERD (gastroesophageal reflux disease), Glaucoma, Gonorrhea, H. pylori infection (2011), Hemorrhoid (2009), Insomnia, Irritable bowel syndrome (2019), Leg cramps (Occasional), Menopause, Osteopenia, Osteoporosis (1999), Ovarian cyst, Pneumonia (2022), PONV (postoperative nausea and vomiting), Rheumatic fever (1953), Sacroiliitis, Seasonal allergies, Sleep apnea, andWheezing (Occasional). Past Surgical History She has a past surgical history that includes ENDOSCOPY UPPER; Tonsillectomy; Colonoscopy; Rotator cuff repair (Right, 2009); Total hip arthroplasty (Left); Cervical fusion (1991); Cystoscopy; Dentalsurgery; ENDOSCOPY UPPER /C PLACEMENT OF CHOI PILL (N/A, 06/20/2024); EGD w/ ENDOFLIP (N/A, 06/20/2024); Shoulder surgery (2009); Total hip arthroplasty (Right, 08/17/2024); Cervical laminoplasty (2011); Joint replacement; and FUSION ANTERIOR CERVICAL DISC (N/A, 08/13/2025). Family History Her family history includes Alcohol abuse in her father; Arthritis in her father and mother; Cancer, other in her father and mother; Depression in her father; Heart disease in her brother; Hypertension in her brother; Lung cancer in her father; Mental illness in her father; Osteoporosis in her mother; Stroke in her maternal grandmother and mother; Substance Abuse in her father; Transient ischemicattack in her mother. Social History She reports that she quit smoking about 45 years ago. Her smoking use included cigarettes. She started smoking about 56 years ago. She has a 16.5 pack-year smoking history. She has never used smokeless tobacco. She reports that she does not currently use alcohol after a past usage of about 20.0 standard drinks of alcohol per week. She reports that she does not currently use drugs after having used the following drugs: Marijuana. Allergies She has no known allergies. Medications She has a current medication list which includes the following prescription(s): acetaminophen, albuterol, albuterol, azelastine, benzonatate, budesonide, cannabis, mucinex cough & chest congest, diclofenac, dupilumab, estradiol, fiber, fluticasone-salmeterol, guaifenesin, latanoprost, levocetirizine, magnesium, medroxyprogesterone, methocarbamol, methocarbamol, montelukast, multi-vitamin, oxycodone, polyethylene glycol, probiotic product, pseudoephedrine-dm, senna-docusate, SUPPLY DME MISC,tramadol, trazodone, vitamin b complex, [DISCONTINUED] acetaminophen, and [DISCONTINUED] tramadol. Review of Systems Review of Systems Constitutional: Negative. HENT: Negative. Eyes: Negative. Respiratory: Negative. Cardiovascular: Negative. Gastrointestinal: Negative. Endocrine: Negative. Genitourinary: Negative. Musculoskeletal: Negative. Skin: Negative. Allergic/Immunologic: Negative. Neurological: Negative. Hematological: Negative. Psychiatric/Behavioral: Negative. Physical Exam VS reviewed Constitutional: comfortable, well dressed Psychiatric: appropriate affect Respiratory: comfortably breathing, symmetric chest rise, no stridor Voice: Variable mild to moderate roughness; inconsistent pitch breaks in upper register; stimulableto improved clarity/resonance with semi-occluded vocal tract prompting Cardiovascular: upper extremities non-edematous Lymphatic: no palpable cervical lymphadenopathy Neurologic: alert and oriented to time, place, person, and situation; cranial nerves 3-12 grossly intact Head: normocephalic Eyes: conjunctivae and sclerae clear Ears: normal pinnae, normal external auditory canals, tympanic membranes intact Nose: mucosa pink and noncongested, no masses, no mucopurulence, no polyps Oral cavity / oropharynx: no mucosal lesions Neck: soft, full range of motion, laryngotracheal complex palpable with appropriate landmarks, larynx elevates on swallowing; right sided acdf scar Indirect laryngoscopy: limited due to gag Procedures Flexible Laryngeal Videostroboscopy (85843): Laryngeal videostroboscopy is indicated to assess laryngeal vibratory biomechanics and vocal fold oscillation, which cannot be assessed with a plain lightexamination. This was carried out transnasally with a distal chip videoendoscope. After verbal consent was obtained, the patient was positioned and the nose was topically decongested with 1% phenylephrine and topically anesthetized with 4% lidocaine. The endoscope was passed through the most patentnasal cavity and positioned to image the nasopharynx, larynx, and hypopharynx in detail. The following features were examined: nasopharyngeal, laryngeal, hypopharyngeal masses; velopharyngeal strength, closure, and symmetry of motion; vocal fold range and symmetry of motion; laryngeal mucosal edema, erythema, inflammation, and hydration; salivary pooling; and gross laryngeal sensation. During phonation, the vocal folds were assessed for glottal closure; mucosal wave; vocal fold lesions; vibratory periodicity, amplitude, and phase symmetry; and vertical height match. The equipment was removed.The patient tolerated the procedure well without complication. All findings were normal except: - Mild diffuse bilateral glottic edema, left greater than right, with slight pallor along edges - Mild right sided glottic ecchymosis -Premature contact, irregular closure, blunted mucosal wave amplitudes bilaterally - Intermittent aperiodic oscillation, with slight asymmetry of phase/amplitude - Variable mild supraglottic hyperfunction Data Reviewed Per HPI Assessment & Plan Marilu Baum is a 75 y.o. female with protracted dysphonia due to laryngitis, etiology uncertain yet suspected to be multifactorial--coughing/throat clearing/phono trauma, possible fungal relatedto inhaled steroids--with superimposed muscle tension dysphonia. I had a discussion with the patient regarding her condition and the further workup and management options. I demonstrated the laryngeal examination to the patient on the video monitor. After discussion of risks/benefits I recommended a longer course of empiric treatment for fungal laryngitis with Diflucan x 3 weeks. I recommended implementation of voice conservation strategies as much as possible. I also recommended implementation of behavioral coughing/throat clearing suppression strategies. METHODS TIME ANALYST voice evaluation and voice therapy are medically necessary for voodoo of laryngeal function. She had a session in tandem with today's visit. She will follow up with me in about 3 week(s). All questions were answered, and the patient is in agreement with the above. Jimmie Boswell M.D. Laryngology [facility] documented in this encounter Plan of Treatment Not on file documented as of this encounter Goals Goal Patient Goal Type Associated Problems Recent Progress Patient-Stated? Author ST LTG 1 Speech Therapy Savita Raza, [facility]-METHODS TIME ANALYST Note: Patient and clinician will facilitate changes in vocal function in order to restore functional use of voice for daily occupational, social, and emotional demands. Patient will maximize efficiency of the vocal mechanism relative to existing laryngeal disorder through coordinating subsystems of voice within 12 weeks as evidenced by patient report and METHODS TIME ANALYST observations. Patient will improve coordination of respiration and phonation for efficient vocal production at a conversational level. Patient will implement and adhere to vocal hygiene protocols on a daily basis, including the elimination of phonotraumatic behaviors. ST STG 1 Speech Therapy Savita Raza [facility]-METHODS TIME ANALYST Note: Patient will complete SOVT exercises and/or resonant-focused exercises 3-5x daily to strengthen and balance the intrinsic laryngeal musculature and maximize glottic closure without medial hyperfunction. Patient will discriminate between easy and strained phonation with 80% accuracy. Patient will increase awareness for voice conservations behaviors by following the 50/10 rule and reduce voice use in competing noise environments. Patient will re-establish breathing patterns and phonation with adequate balance of airflow and resonance with decreased muscle tension. Patient will implement and adhere to open larynx breathing protocols and voice hygiene protocols on a daily basis. documented as of this encounter Visit Diagnoses Diagnosis Dysphonia- Primary Vocal cord edema Edema of larynx Chronic fungal laryngitis documented in this encounter Care Teams Soap Slabber Relationship Specialty Start Date End Date Belem Diaz MD [address] [place] [address] PCP - General Internal Medicine 02/03/24 Gosia Gonzalez DO [address] [place] [address] [place] [address] Physician Gastroenterology 06/29/24 Shruti Ocasio RN [address] [place] [address] Nurse Navigator Surgery, Neurosurgery 04/18/25 Carson Vang MD [address] [address] Surgery, Neurosurgery 05/28/25 System, Provider Not In [address] [place] [address] Pulmonary Disease 05/28/25 documented as of this encounter
--- OUTSIDE RECORDS SUMMARY | 2025-09-04 10:00 | XMS_ITS | Encounter Summary ---
Author Organization [facility] Address [address] [place] [address] Care Team Providers Care Factory Hand Name Role Phone Belem Diaz MD Primary Care Provider [phone] Gosia Gonzalez DO Unavailable Shruti Hu RN Unavailable Carson Vang MD Unavailable [phone] System, Provider Not In Unavailable Unavaila ble Reason for Visit * Reason Comments ST Evaluation * Evaluation and Treatment (Elective) - Authorized Specialty Diagnoses / Procedures Referred By Contact Referred To Contact Speech-Language Pathologist / Rehabilitation Diagnoses Dysphonia Khalida Boswell MD [address] [place] [address] Phone: tel:[phone] fax:[phone] [facility] [address] [place] [address] Phone: tel: fax: Referral ID Status Reason Start Date Expiration Date Visits Requested Visits Authorized [id number] Authorized Support Services 09/04/2025 10/30/2025 200 200 Encounter Details Date Type Department Care Team (Latest Contact Info) Description 09/04/2025 10:00 AM EST Evaluation [facility] [address] [place] [address] Khalida Boswell MD [address] [place] [address] Savita Boswell CCC-ENGINE MECHANIC CT Dysphonia (Primary Dx); Vocal fold edema; [...] Notes * Evaluation/ Progress Note - PRABHJOT RiceENGINE MECHANIC - 09/04/2025 10:47 AM EST Speech Therapy Initial Evaluation Diagnoses ICD-10-CM 1. Dysphonia R49.0 2. 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 Chronic fungal laryngitis J37.0 B49 Interpretation Services: Communication Needs - TueSeptember 04, 2025 Row Name 0914 Communication Needs What is the patient's preferred language? 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 N Subjective - TueSeptember 04, 2025 Row Name Evaluation from 09/04/[address] [facility] Subjective History Are you receiving any services [...] 2025 Row Name Evaluation from 09/04/[address] [facility] Oral/Motor Labial ROM Within Functional Limits Labial [...] 2025 Row Name Evaluation from 09/04/[address] 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 Assessment Assessment details A variety of informal [...] ask me to repeat myself when speaking [id number]. 2 My voice difficulties restrict my personal [...] social and vocational services? no Prognosis Good ENGINE MECHANIC Interventions Voice;HEP;Patient Education Frequency 2x month Duration [...] weeks as evidenced by patient report and ENGINE MECHANIC observations. Patient will improve coordination of respiration [...] 2025 Row Name Evaluation from 09/04/[address] [facility] ENGINE MECHANIC Intervention ENGINE MECHANIC Interventions Voice Home Exercise Program initiated Voice [...] LTG 1 Speech Therapy No Savita Boswell CCC-ENGINE MECHANIC Note: Patient and clinician will facilitate changes in vocal function in order to restore functional use of voice for daily occupational, social, and emotional demands. Patient will maximize efficiency of the vocal mechanism relative to existing laryngeal disorder through coordinating subsystems of voice within 12 weeks as evidenced by patient report and ENGINE MECHANIC observations. Patient will improve coordination of respiration and phonation for efficient vocal production at a conversational level. Patient will implement and adhere to vocal hygiene protocols on a daily basis, including the elimination of phonotraumatic behaviors. ST STG 1 Speech Therapy Savita Raza, [facility]-ENGINE MECHANIC Note: Patient will complete SOVT exercises and/or [...] laryngitis documented in this encounter Care Teams Factory Hand Relationship Specialty Start Date End Date Belem Diaz MD [address] [place] [id number] PCP - General Internal Medicine 02/03/24 Gosia Gonzalez DO [address] [place] [address] [place] [address] Physician Gastroenterology 06/29/24 Shruti Ocasio RN [address] [place] [address] Nurse Navigator Surgery, Neurosurgery 04/18/25 Carson Vang MD [address] [place] [address] Surgery, Neurosurgery 05/28/25 System, Provider Not In [address] [place] [address] Pulmonary Disease 05/28/25 documented as of this encounter
--- OUTSIDE RECORDS SUMMARY | 2025-09-04 13:40 | XMS_ITS | Encounter Summary ---
Author Organization [facility] Address [address] [place] [address] Care Team Providers Care Fish Hatchery Man Name Role Phone Belem Diaz MD Primary Care Provider [phone] Gosia Gonzalez DO Unavailable Shruti Hu RN Unavailable Carson Vang MD Unavailable [phone] System, Provider Not In Unavailable Unavaila ble Reason for Referral * Rehabilitation (Routine) - Authorized Specialty Diagnoses / Procedures Referred By Contac t Referred To Contact Physical Therapist Diagnoses S/P cervical spinal fusion Dina Dee, PA-C [address] [place] [address] [place] [address] Phone: tel: fax: Referral ID Status Reason Start Date Expiration Date Visits Requested Visits Authorized [id number] Authorized Support Services 09/04/2025 09/05/2026 1 1 Scheduling Instructions [facility] in [facility] [address] [facility] [address] [place], [place] [address] Question Answer Is this referral for an initial evaluation or additional visits? Initial evaulation Is this related to a Neurological Condition? Yes Is this referral for PT or OT? PT - cervical radiculopathy s/p ACDF C4-5. Work on BUE strengthening and biomechanics Comments S/p C4-5 ACDF [facility] PT in [address] [place] [address] Reason for Visit * Reason Comments Post-op Encounter Details Date Type Department Care Team (Late st Contact Info) Description 09/04/2025 1:40 PM EST Office Visit [facility] [id number] [address] [address] Dina Dee PA-C 85 [facility] [address] [place] [address] S/P cervical spinal fusion (Primary Dx) Social History Tobacco Use Types Packs/Day Years [...] - Inhaled Oxygen Concentration - - Weight 57.2 kg (126 lb) 09/04/2025 1:14 PM EST Height 165.1 cm (5' 5 ) 09/04/2025 1:14 PM EST Body Mass Index 20.97 09/04/2025 1:14 PM EST documented in this encounter Progress Notes * Dina Dee PA-C - 09/03/2025 5:31 PM EST Assessment and Plan POST-OP: Marilu Baum is a 75 y.o. female with pmhx GERD, IBS, TRICIA, asthma, cervical radiculopathy, Lumbar DDD, OP, sacroiliitis , HLD who is 22 days s/p C4-5 ACDF for severe left foraminal stenosis with left deltoid pain and weakness. Patient was initially doing very well from her surgery until she lifted a 20 pound grocery bag which exacerbated her radicular symptoms in the form of left C5-C6 radiculopathy (C6 is new). She denies any weakness/numbness/tingling but does report the pain at a 3-6.5/10 on her current pain regimen. 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 Patient obtain x-ray C-spine for stability of hardware today although unfortunately images are not currently pushed. Of note MRI C spine also showed concerned for LC6 NFS. On exam, patient 5/5 motor BUE/BLE without sensory changes. TTP over L-spine and L>R SI joint. Incision healing well. PLAN: Ordered updated imaging to be obtained as soon as possible to ensure stability of hardware postoperatively (ordered but not pushed). CT guided left SIJ injection ordered for 09/17/25 PT outpatient ([facility]) Advised to increase robaxin 750 mg 4 times daily (patient was taking this only 3 times daily). Advised patient to contact our office immediately should he have any concerns regarding the incision site including systemic symptoms of infection such as fever/chills. Recommended steady increase in activity while listening to body with incremental daily progression Follow up in 3 months with updated images- sooner if worsening neurologic decline. Chief Complaint: postop PMHx: GERD, IBS, TRICIA, asthma, cervical radiculopathy, Lumbar DDD, OP, sacroiliitis , HLD History of Present Illness: Marilu Baum is a very pleasant 75 y.o. right handed female pmhx GERD, IBS, TRICIA, asthma, cervical radiculopathy, Lumbar DDD, OP, sacroiliitis , HLD who is 22 days s/p C4-5 ACDF for severe left foraminal stenosis with left deltoid pain and weakness. Patient reports complete resolution of her symptoms immediately in the postoperative period. She then reports increasing neck pain and left-sided r adicular pain down the left C5 and C6 distribution (new) with bilateral elbow pain worse on the left since surgery. She reports lifting up a >10 lb grocery back. She reports the pain is constant with 6.5/10 pain today with 3/10 with medications. She denies weakness of the LUE, falls, bladder/bowel dysfunction. Of note patient has not been taking her Robaxin 4 times a day as ordered but takes it 3 times a day. 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 We are also following the patient for her lumbar pathology but she is more symptomatic from her L>R Sacroiliitis. She reports her pain is mostly centered around her left upper buttock region and travels down her lateral and posterior thigh without traveling past her knee. She denies any weakness/ paresthesias. She reports also having fungal laryngitis from her asthma medications. Her speech and swallowing had initially worsened after the surgery but has since resolved to her baseline level of laryngitis. She is scheduled to follow-up with her PCP/ENT provider and start fluconazole. Therapies used - Steroid injections: Upcoming SIJ injection (11/18) - OTC medications: none - Prescribed medications: Tramadol 50 mg q8 hr PRN severe pain Robaxin 750 mg QID- reports taking 3 times a day Tylenol Diclofenac - Physical therapy: Not started outpatient Imaging: No new imaging available to review but pt did acquire XR today . 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 pylori infection 2011 Hemorrhoid 2009 Insomnia Irritable bowel syndrome 2019 Leg cramps Occasional Menopause Osteopenia Osteoporosis 1999 Ovarian cyst Pneumonia 2022 PONV (postoperative nausea and vomiting) Rheumatic fever 1953 Sacroiliitis Seasonal allergies Sleep apnea mild no CPAP Wheezing Occasional Allergies: Allergies[1] Surgical History: Past Surgical History: Procedure Laterality Date CERVICAL FUSION 1991 c5-7 CERVICAL LAMINOPLASTY 2011 c3-5 COLONOSCOPY x2 CYSTOSCOPY DENTAL SURGERY implant EGD W/ ENDOFLIP N/A 06/20/2024 Procedure: EGD W/ ENDOFLIP; Surgeon: Gosia Gonzalez DO; Location: GI Endoscopy; Service: Gastroenterology; Laterality: N/A; ENDOSCOPY UPPER x2 ENDOSCOPY UPPER /C PLACEMENT OF CHOI PILL N/A 06/20/2024 Procedure: ENDOSCOPY UPPER /C PLACEMENT 96 hour OF CHOI PILL; Surgeon: Gosia Gonzalez DO; Location: GI Endoscopy; Service: Gastroenterology; Laterality: N/A; FUSION ANTERIOR CERVICAL DISC N/A 08/13/2025 Procedure: C4-5 ACDF; Surgeon: Carson Vang MD; Location: Main OR; Service: Neuro-Spine; Laterality: N/A; JOINT REPLACEMENT ROTATOR CUFF REPAIR Right 2010 SHOULDER SURGERY 2010 TONSILLECTOMY TOTAL HIP ARTHROPLASTY Left TOTAL HIP ARTHROPLASTY Right 08/17/2024 Patient reported Social History: As noted per the scanned intake sheet Family History: Negative except where noted on the scanned intake sheet Review of Systems: SYSTEM Patient Reports: Constitutional Afebrile, No Chills and Non-anorexic Eyes No Eye Pain, No Double Vision, No Blurred Vision Cardiovascular No Chest Pain, No Palpitations, No Racing Heart, No Light Headedness, No Leg/Feet Swelling Respiratory No Wheezing, No Shortness of breath Gastrointestinal No Abdominal Pain, No Nausea, No Vomiting, No Diarrhea, No Constipation, No Bowel Incontinence Genitourinary No Painful Urination, No Urinary Incontinence, No Urinary Frequency, No Dark Urine, No Bloody Urine Musculoskeletal No Joint Pain Neurological No Headache, No Confusion, No Dizziness, No Fainting, No Memory Lapses/Loss, No Daytime Sleepiness Endocrine No Hot Flashes, No Night Sweats, No Muscle Weakness, No Generalized Weakness Hematologic/Lymphatic No Swollen Glands, No Swollen Glands in Neck, No Easy Bleeding, No Easy Bruising Patient is not on anticoagulants; Physical Exam: A&Ox3, NAD The patient appears attentive and is asking appropriate questions Has good command of language Has appropriate fund of knowledge PERRL, brisk EOMI Face symmetric CN: grossly intact Sensation grossly intact and symmetrical Moving all ext spontaneously, FSCx4 RUE 5/5 Finger Abduction (T1 - 5th digit) 5/5 Hand Undercover Agent (C8) 5/5 Elbow extension (C7) 5/5 Elbow flexion / wrist extension (C6) 5/5 Deltoid Abduction (C5) LUE 5/5 Finger Abduction (T1 - 5th digit) 5/5 Hand Undercover Agent (C8) 5/5 Elbow extension (C7) 5/5 Wrist extension (C6) 5/5 Deltoid Abduction/Elbow flexion (C5) Bilat UEs: (+2) Brachial Reflex (+2) Brachioradialis Reflex RLE: 5/5 Hip flexion (L2) 5/5 Knee flexion 5/5 Knee extension (L3) 5/5 Dorsiflexion (L4) 5/5 MCP extension (L5) 5/5 Plantarflexion (S1) LLE: 5/5 Hip flexion (L2) 5/5 Knee flexion 5/5 Knee extension (L3) 5/5 Dorsiflexion (L4) 5/5 MCP extension (L5) 5/5 Plantarflexion (S1) Bilat LE: (+2) Patellar Reflex (+2) Achilles Reflex UMN Reflexes: (-) Santiago (-) Ankle clonus Coordination: Intact Gait: normal gait with no imbalance. Toe walk: no difficulty Heel walk: no difficulty Tandem walk: no difficulty Squat: no difficulty Incision: CDI without discharge, dehiscence, drainage, erythema, warmth, or TTP. Special Tests: SLE: (-) R, (+) L (exacerbation of her L SIJ region) Tenderness: Midline: Cervical (-), Thoracic (-), Lumbar (+) Facet joints: Cervical (-), Thoracic (-), Lumbar (+) Sacroiliitis testing: SI joints: (-) R, (+) L DUGLAS: (-) R, (+) L Compression: (-) R, (-) L Greater Trochanteric TTP: TTP: (-) R, (+) L Sign Dina Dee PA-C 09/03/2025 5:32 PM ADO: Carson Vang MD P.S. This note is created using the voice recognition software dictation system to expedite documentation. I apologize for any typographical or grammatical errors Previous Assessment & Plan: Mrs. Marilu Baum is a 75 y.o. female with multiple complaints and multiple pathologies. She is complaining of severe neck pain and left shoulder pain in the C5 distribution. On exam she has some weakness in her left deltoid. Cervical MRI revealed severe left C4-5 foraminal stenosis. On a separate note, on exam she has left sacroiliitis. Her lumbar MRI showed multiple pathologies including: L1-2 retrolisthesis L2-3 retrolisthesis L4-5 anterolisthesis Right L1-2 foraminal stenosis Right L2-3 foraminal and lateral recess stenosis Right L3-4 foraminal and lateral recess stenosis Bilateral discogenic L4-5 lateral recess stenosis worse on the left Left L4-5 foraminal stenosis Bilateral discogenic L5-S1 lateral recess stenosis worse on the left Left L5-S1 foraminal stenosis. However, she does not seem to be symptomatic from any of those findings. Further review of the MRI revealed possibility of left Bertolotti syndrome. On a separate note, she does complain of difficulty swallowing. I discussed with the patient their condition in details, showed them their radiological images, explained it on a 3D model and discussed with them their options. I elaborated to them that we will tryall nonsurgial options first before I offer them surgery and that I will only offer them surgery ifeverything else fails to control their pain or if they develop progressive neurological deficits. Ialso assured them that I do not treat the radiological images but I treat the patient and will address only the findings on the images that are relevant to their symptoms and signs. After that I proceeded with offering the patient the following plan. 1- Refer to [facility] for CT guided left SI joint injection 2- Order lumbosacral spine CT scan given the possibility of left Bertolotti syndrome 3- Arrange for a modified barium swallow test given her difficulty swallowing 4- schedule her for urgent C4-5 anterior cervical discectomy and fusion given the severe left C4-5 foraminal stenosis with severe debilitating pain and weakness in her left deltoid [1] No Known Allergies documented in this encounter Plan of Treatment Scheduled Referrals Name Type Priority Associated Diagnoses Orde r Schedule Amb Referral to Therapy Services (PT or OT) Outpatient Referral Routine S/P cervical spinal fusion Ordered: 09/04/2025 documented as of this encounter Goals Goal Patient Goal Type Associated Problems Recent Progress Patient-Stated? Author ST LTG 1 Speech Therapy Savita Raza, [facility]-CHEMICAL INSPECTOR Note: Patient and clinician will facilitate changes in vocal function in order to restore functional use of voice for daily occupational, social, and emotional demands. Patient will maximize efficiency of the vocal mechanism relative to existing laryngeal disorder through coordinating subsystems of voice within 12 weeks as evidenced by patient report and CHEMICAL INSPECTOR observations. Patient will improve coordination of respiration and phonation for efficient vocal production at a conversational level. Patient will implement and adhere to vocal hygiene protocols on a daily basis, including the elimination of phonotraumatic behaviors. ST STG 1 Speech Therapy Savita Raza CCC-CHEMICAL INSPECTOR Note: Patient will complete SOVT exercises and/or [...] daily basis. documented as of this encounter Procedures Procedure Name Priority Date/Time Associated Diagnosis Comments XR CERVICAL SPINE 2 OR 3 VIEWS Routine 09/04/2025 12:30 PM EST S/P cervical spinal fusion documented in this encounter Results * XR Cervical spine 2 or 3 views (09/04/2025 12:30 PM EST) Anatomical Region Laterality Modality C-spine Computed Radiogr aphy 09/04/2025 1:00 PM EST 09/04/2025 1:00 PM EST Impressions 09/08/2025 2:43 PM EST Postoperative changes. No acute abnormality. Electronically signed by: Kenneth Peña MD 09/08/2025 02:43 PM EST RP Thank you for referring your patient to us, Kenneth Peña MD [id number] (Electronically Signed - 09/08/2025 14:43) Narrative 09/08/2025 2:43 PM EST EXAMINATION: XR CERVICAL SPINE CLINICAL INFORMATION: Arthrodesis. Status post C4-C5 ACDF, check stability of hardware. COMPARISON: X-ray cervical spine 08/13/2025. TECHNIQUE: AP and lateral views of the cervical spine. FINDINGS: Intact spinal hardware. No acute abnormality. Posterior cervical fusion again noted. ACDF of C4-5 is new since the prior study. There is osseous fusion from C5 through C7. This is unchanged from prior study. Procedure Note Kenneth Peña MD - 09/08/2025 EXAMINATION: XR CERVICAL SPINE CLINICAL INFORMATION: Arthrodesis. Status post C4-C5 ACDF, check stability of hardware. COMPARISON: X-ray cervical spine 08/13/2025. TECHNIQUE: AP and lateral views of the cervical spine. FINDINGS: Intact spinal hardware. No acute abnormality. Posterior cervical fusionagain noted. ACDF of C4-5 is new since the prior study. There is osseousfusion from C5 through C7. This is unchanged from prior study. IMPRESSION: Postoperative changes. No acute abnormality. Electronically signed by: Kenneth Peña MD 09/08/2025 02:43 PM EST RPWorkstation: [id number] Thank you for referring your patient to us, Kenneth Peña MD [phone] (Electronically Signed - 09/08/2025 14:43) Dina Dee PA-C IMG DIAGNOSTIC IMAGING ORDERA BLES Final Result documented in this encounter Visit Diagnoses Diagnosis S/P cervical spinal fusion- Primary Arthrodesis status documented in this encounter Care Teams Fish Hatchery Man Relationship Specialty Start Date End Date Belem Diaz MD [address] [place] [address] PCP - General Internal Medicine 02/03/24 Gosia Gonzalez DO [address] [place] [address] [place] [address] Physician Gastroenterology 06/29/24 Shruti Hu RN 80 [place] [address] Nurse Navigator Surgery, Neurosurgery 04/18/25 Carson Vang MD [address] [address] Surgery, Neurosurgery 05/28/25 System, Provider Not In [address] [place] [address] Pulmonary Disease 05/28/25 documented as of this encounter
--- OUTSIDE RECORDS SUMMARY | 2025-09-08 23:59 | XMS_ITS | Continuity of Care Document ---
Author Organization [facility] Address [address] [place] [address]- Care Team Providers Care Phlebotomy Support Tech Name Role Phone Delfina Haro MD, Jimmie Thayer Primary Care Physic pawan [id number] Date(s): 06/07/25 - 09/08/25 [facility] [address] [place], [place] [address] Attending Physician: Delfina Haro MD, Jimmie Thayer Encounter Type: Pre Office Visit Allergies, Adverse Reactions, Alerts Substance Criticality Severity [...] Recorded tetanus/diphtheria/pertussis, acel(Tdap) 2 04/17/20 Given SARS-CoV-2(COVID-19)mRNA-LNP vac(pbp333) 07/01/24 Recorded SARS-CoV-2(COVID-19)mRNA-LNP vac(xxx364) 03/09/24 Recorded SARS-CoV-2(COVID-19)mRNA-LNP vac(zrj207) 08/06/23 Recorded RSV vaccine preF3, recombinant 08/20/23 Recorded pneumococcal 20-valent conjugate vaccine 07/26/23 Recorded HTKG-CjF-1jHET 12y+ bivalent booster vax 07/23/22 Recorded pneumococcal 23-valent vaccine 04/23/22 Given SARS-CoV-2 (COVID-19) mRNA-1273 vaccine 03/12/22 R ecorded SARS-CoV-2 (COVID-19) mRNA-1273 vaccine 08/29/21 R ecorded SARS-CoV-2 (COVID-19) mRNA-1273 vaccine 01/16/21 R ecorded SARS-CoV-2 (COVID-19) mRNA-1273 vaccine 01/09/21 R ecorded zoster vaccine, inactivated 03/21/21 Recorded zoster vaccine, inactivated 3 10/11/20 Recorded pneumococcal 13-valent vaccine 4 08/01/20 Recorded 1Result Comment: GIVEN @ ALEJANDRO 2Result Comment: [id number] given w/out incident 3Result Comment: given @ alejandro 4Result Comment: GIVEN @ JUSTINSUPERIORJeovany Medications Albuterol (Eqv-ProAir HFA) 90 mcg/inh inhalation aerosol 2 puffs, Inhalation, Every 4 hours, PRN Wheezing/Shortness of Breath, j 45.40, # 3 each, 3 Refills,Maintenance, 08/06/25 9:01:00 AM EDT, [facility]/pharmacy #[id number], Partial fill upon patient request if the [...] Refills, Maintenance, 07/09/25 2:30:00 PM EDT, Solution, [facility]/pharmacy #1157, Partial fill upon patient request if [...] Refills, Maintenance, 08/12/25 2:50:00 PM EDT, Solution, [facility]/pharmacy #1157, J45.909 asthma BILL MEDICARE B PLEASE!, [...] Maintenance, 08/09/24 11:20:00 AM EDT, [facility], 30, INSTILL 2 SPRAYS NARES, BOTH DAILY [...] PM EDT, Suspension, Route to Pharmacy Electronically, [id number], [facility]/pharmacy #1157, 164, cm, 07/26/25 10:06:00 EDT, Height, [...] 0 Refills, Maintenance, 06/10/25 12:20:00 PM EDT, [facility]/pharmacy #1157, Partial fill upon patient request if [...] Refills, Maintenance, 01/30/25 3:08:00 PM EDT, Ointment, [facility]/pharmacy #1157, Partial fill upon patient request if [...] Refills, Maintenance, 11/16/24 10:35:00 AM EST, Film, [facility]/pharmacy #1157, Partial fill upon patient request if [...] Replace Required Details, Route to Pharmacy Electronically, [facility]/pharmacy #1157, 164, cm, 09/12/24 13:22:00 EST, Height, [...] 8:17:00 AM EDT, Route to Pharmacy Electronically, [facility]/pharmacy #1157, Partial fill upon patient requestif the [...] Refills, Maintenance, 11/16/24 10:42:00 AM EST, Tablet, [facility]/pharmacy #1157, Partial fill upon patient request if [...] Replace Required Details, Route to Pharmacy Electronically, [facility]/pharmacy #1157, 164, cm, 07/09/25 13:56:00 EDT, Height, [...] 11 Refills, Maintenance, 04/23/22 9:23:00 AM EDT, [facility]/pharmacy #1157, pu ton file, 2 Gm Topically [...] 11 Refills, Maintenance, 01/14/25 8:53:00 AM EDT, [facility], 30, 1 PUFFS INHALATION 2 TIMES A [...] 4 Refills, Maintenance, 06/05/25 4:05:00 PM EDT, [facility]/pharmacy #1157, Partial fill upon patient request if [...] 4 Refills, Maintenance, 04/12/24 1:58:00 PM EDT, [facility], 164, cm, 04/12/24 13:32:00 EDT, Height, [...] Vertigo Confirmed Active Vulvovaginal dryness Confirmed Active Social History Social History Type Response Sexual Sexually involved in last 6 months: No. Gender identity: Identifies as female. Preferred pronoun: She/her. Smoking Status Former smoker, quit more than 30 days ago entered on: 08/15/24 Sex Female Sex Representation Female (finding) Patient Care team information Care Team Personnel Name: Jimmie Schaefer MD Position: [facility] Physician - Primary Care Member Role: PCP Address: [address] [place] [address] Telecom: Care Team Related Persons Name: ARELY ESTRADA Name: SHAYLEE LINO Name: MARIA INES SOTELO Insurance Providers Guarantor name: GUILLERMINA ESTRADA [facility] Plan Information #: 1 Payer: [facility] PPO Payer Identifier: NA Member Number: [id number] Group Number: [id number] Subscriber Identifier: [id number] Relationship to Subscriber: self Coverage Type: Medicare PPO Coverage Verification Date: NA Telecom: NA Address: NA Health Plan Information #: 2 Payer: [facility] Payer Identifier: NA Member Number: [id number] Group Number: [id number] Subscriber Identifier: NA Relationship to Subscriber: self Coverage Type: MEDICAID Coverage Verification Date: NA Telecom: NA Address: NA
--- OUTSIDE RECORDS SUMMARY | 2025-09-09 10:05 | XMS_ITS | Clinical Summary ---
Author Organization [facility] Address [address] [place], [place] [address] Phone Care Team Providers Care Chief Digital Media Officer Name Role Phone Belem Diaz MD Primary Care Provider + Allergies Active Allergy Reactions Criticality Noted Date Comments Egg 04/10/2019 Mold Extracts 04/10/2019 Thyme 04/10/2019 Medications lidocaine 5 % ointment Apply topically 4 (four) times a day as needed. 35.44 g 9 Active Additional Information Patient not taking.Reported on 11/08/2019 ALBUTEROL INHL Inhale into the lungs. Active FLUTICASONE FUROATE NASL by Nasal route. A ctive esomeprazole (NEXIUM) 40 MG capsule Take 40 mg by mouth. Active multivitamin per tablet Take 1 tablet by mouth. Active magnesium oxide 400 mg magnesium Tab Take 1 tablet by mouth. Active cetirizine (ZYRTEC) 10 mg capsule Take 1 tablet by mouth. Active acetaminophen (TYLENOL) 325 mg tablet Take 650 mg by mouth. Active Lactobac no.41/Bifidobac t no.7 (PROBIOTIC-10 ORAL) Take 1 tablet by mouth. Active OMEGA-3 FATTY ACIDS-FISH OIL ORAL Take 1 tablet by mouth. Active hhpoyrab-rysp-m zs0-R-vqxs-bosw 750-625-30 mg Tab Take 1 tablet by mouth. Active montelukast (SINGULAIR) 10 mg tablet Take 10 mg by mouth. Active naproxen sodium 220 mg Cap Take 1 tablet by mouth. Active traZODone (DESYREL) 50 MG tablet Take 50 mg by mouth. Active diclofenac sodium (PENNSAID) 1.5 % Drop Apply 40 drops topically 4 (four) times a day. Active furosemide (LASIX ORAL) Take 30 mg by mouth. Active estradioL (VIVELLE-DOT) 0.075 mg/[address] 1 patch onto the skin 2 (two) times a week. 16 patch 3 0 Active medroxyPROGESTE Adriel (PROVERA) 2.5 MG tabletIndicatio ns:Menopause syndrome Take 1 tablet (2.5 mg total) by mouth daily. 90 tablet 3 0 Active Active Problems Problem Noted Date Diagnosed Date Encounter for annual physica l examination excluding gynecological examination in a patient older than 17 years 04/22/2020 Osteopenia 11/10/2019 Estrogen deficient vulvovaginitis 11/10/2019 Hormone replacement therapy 11/10/2019 Herpes genitalis in women 11/10/2019 Osteoporosis 04/10/2019 Hirsutism 04/10/2019 Menopause syndrome 04/10/2019 Hip pain 11/05/2013 Overview (12/20/2014): Hip pain Immunizations Immunization Administration Dates Next Due Influenza Trivalent Adjuvanted Preservative free IM 08/17/2019 Family History Medical History Relation Comments Lung cancer Father Coronary artery disease Maternal Grandfather Cor onary Artery Disease Coronary artery disease Maternal Grandmother Cor onary Artery Disease Bladder Cancer Mother Coronary artery disease Mother Coronary Artery Disease Coronary artery disease Paternal Grandfather Cor onary Artery Disease Coronary artery disease Paternal Grandmother Cor onary Artery Disease Stroke Unspecified Great Grandmothe r Relation Status Comments Father Maternal Grandfather Maternal Grandmother Mother Paternal Grandfather Paternal Grandmother Unspecified Social History Tobacco Use Types Packs/Day Years Used Date Smoking Tobacco: Former Cigarettes Q uit: 1980 Smokeless Tobacco: Never Alcohol Use Standard Drinks/Week Comments Yes 0 (1 standard drink = 0.6 oz pur e alcohol) 6 drinks per week Education Answer Date Recorded Are you interested in more education? Not on law e 03/11/2023 Are you concerned about learning? Not on file 03/11/2023 No 03/11/2023 No 03/11/2023 Digital Access Answer Date Recorded No 03/25/2023 No 03/25/2023 No 03/25/2023 Reliable internet access at home? Not on file 03/25/2023 Device with a working camera? Not on file Comments No Sex and Gender Information Value Date Recorded Sex Assigned at Female 01/08/2020 2:52 PM EDT Legal Sex Female 5:13 PM EST Gender Identity Female 01/08/2020 2:52 PM EDT Sexual Orientation Straight 01/08/2020 2: 52 PM EDT Occupation Industry Job Start Date Job End Date Working Not on file Not on file Not on file Last Filed Vital Signs Vital Sign Reading Time Taken Comments Blood Pressure 106/74 04/22/2020 9:11 AM EDT Pulse 79 03/04/2014 12:06 PM EDT Temperature 36.4 C (97.5 F) 03/04/2014 12:06 PM EDT Respiratory Rate 16 11/05/2013 1:39 PM EST Oxygen Saturation - - Inhaled Oxygen Concentration - - Weight 61.7 kg (136 lb) 04/22/2020 9:11 AM EDT Height 165.1 cm (5' 5 ) 04/22/2020 9:11 AM EDT Body Mass Index 22.63 04/22/2020 9:11 AM EDT Plan of Treatment Health Maintenance Due Date Last Done Comments Adult Td,Tdap Booster 1952 LIPID PANEL 1952 DEPRESSION SCREENING 1964 SMOKING Hx and SMOKELESS TOBACCO SCREENING 1965 HEPATITIS C SCREENING 1970 COLOGUARD 1997 COLONOSCOPY 1997 COLORECTAL CANCER SCREENING 1997 FIT TEST 1997 FOBT 1997 SIGMOIDOSCOPY 1997 VIRTUAL COLONOSCOPY 1997 PNEUMOCOCCAL VACCINES (50+ years) (1 of 1 - PCV) 2002 ZOSTER VACCINES (1 of 2) 2002 OSTEOPOROSIS SCREENING INITIAL (ONE-TIME) 2017 MAMMOGRAM 04/11/2021 04/11/2019 INFLUENZA VACCINE (#1) 2025 9, 08/10/2018, 08/05/2017, Additional history exists COVID-19 VACCINE (3 - season) 2025 01/16/2021, 01/09/2021 RSV VACCINE (1 - 1-dose 75+ series) 2027 HEPATITIS A VACCINES Aged Out No long er eligible based on patient's age to complete this topic HIB VACCINES Aged Out No longer eligi ble based on patient's age to complete this topic IPV VACCINES Aged Out No longer eligi ble based on patient's age to complete this topic MENINGOCOCCAL VACCINES (ACWY) Aged Out No longer eligible based on patient's age to complete this topic MENINGOCOCCAL VACCINES (B) Aged Out N o longer eligible based on patient's age to complete this topic Medical Devices Not on file Procedures Procedure Name Priority Date/Time Associated Diagnosis Comments MAMMOGRAPHY Routine 04/11/2019 from Last 3 Months or Most Recently Relevant to Health Maintenance Results * MAMMOGRAPHY FOR RESULT ENTRY ONLY (04/11/2019) Adilson Kim MD HEALTH MAINTENANCE Final Result from Last 3 Months or Most Recently Relevant to Health Maintenance Insurance MEDICARE PPO BLUE REPLACEMENT MEDICARE PPO BLUE REPLACEMENT MEDICARE PPO BLUE REPLACEMENT MEDICARE PPO BLUE REPLACEMENT MEDICARE PPO BLUE REPLACEMENT MEDICARE PPO BLUE REPLACEMENT MEDICARE PPO BLUE REPLACEMENT MEDICARE PPO BLUE REPLAC[place] P[place] BLUE REPLACEMENT Care Teams Chief Digital Media Officer Relationship Specialty Start Date End Date Belem Diaz MD PCP - General Internal Medicine 07/13/18 Additional Source Comments The information contained in this document represents components of the legal health record. It is not the complete legal health record.[facility]
--- OUTSIDE RECORDS SUMMARY | 2025-09-09 10:05 | XMS_ITS | Patient Health Record ---
Author Organization [facility] Address [address] [place] [address] [place] [address] Care Team Providers Care Dealmaker Name Role Phone Rafal Seaman Primary Care Provider Unavailsaul lynch Rafal Seaman Unavailable [phone] Reason For Referral No Information Medications Medication [...] W/U Status Risk Notes Problem Allergic rhinitis (79319369) Allergic rhinitis, cause unspecified (477.9) Active confirmed Problem Asthma (disorder) (260018237) Asthma, unspecified, unspecified status (493.90) Active confirmed 2 Problem Gastroesophageal reflux disease (893792899) GERD (530.81) Active confirmed 2 Problem 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 Cervical fusion anterior Cervical fusion posterior Depression Rotator cuff tear LT Asthma Seasonal allergies
--- OUTSIDE RECORDS SUMMARY | 2025-09-09 10:05 | XMS_ITS | Encounter Summary ---
Author Organization [facility] Address [address] [place] [address] Care Team Providers Care Commercial Real Estate Agent Name Role Phone Belem Diaz MD Primary Care Provider [phone] Gosia Gonzalez DO Unavailable Shruti Hu RN Unavailable Carson Vang MD Unavailable [phone] System, Provider Not In Unavailable Unavaila ble Encounter Details Date Type Department Care Team (Late st Contact Info) Description 04/12/2024 Scanned Document [facility] [address] [facility] [address] [place] [address] Vicky Alanis PA [address] [facility] [address] [place], [place] [id number] Social History Tobacco Use Types Packs/Day Years [...] on filedocumented in this encounter Care Teams Commercial Real Estate Agent Relationship Specialty Start Date End Date Belem Diaz MD [address] [place] [address] PCP - General Internal Medicine 02/03/24 Gosia Gonzalez DO [address] [place] [address] Physician Gastroenterology 06/29/24 Shruti Ocasio RN [address] [place] [address] Nurse Navigator Surgery, Neurosurgery 04/18/25 Carson Vang MD [address] [address] Surgery, Neurosurgery 05/28/25 System, Provider Not In [address] [place] [address] Pulmonary Disease 05/28/25 documented as of this encounter
--- OUTSIDE RECORDS SUMMARY | 2025-09-09 10:06 | XMS_ITS | Encounter Summary ---
Author Organization [facility] Address [address] [place] [address] Care Team Providers Care Cop Breaker Name Role Phone Belem Diaz MD Primary Care Provider [phone] Gosia Gonzalez DO Unavailable Shruti Hu RN Unavailable Carson Vang MD Unavailable [phone] System, Provider Not In Unavailable Unavaila ble Encounter Details Date Type Department Care Team (Late st Contact Info) Description 08/09/2025 Scanned Document [facility] Neurosurgery [place] [address] [place] [address] Carson Vang MD 85 [facility] [address] [place], [place] [id number] Social History Tobacco Use Types Packs/Day Years [...] on filedocumented in this encounter Care Teams Cop Breaker Relationship Specialty Start Date End Date Belem Diaz MD [address] [place] [address] PCP - General Internal Medicine 02/03/24 Gosia Gonzalez DO [address] [place] [address] [place] [address] Physician Gastroenterology 06/29/24 Shruti Ocasio RN [address] [place] [address] Nurse Navigator Surgery, Neurosurgery 04/18/25 Carson Vang MD [address] [place] [address] Surgery, Neurosurgery 05/28/25 System, Provider Not In [address] [place] [address] Pulmonary Disease 05/28/25 documented as of this encounter
--- OUTSIDE RECORDS SUMMARY | 2025-09-09 10:06 | XMS_ITS | Encounter Summary ---
Author Organization [facility] Address [address] [place] [address] Care Team Providers Care Gold Charmer Name Role Phone Belem Diaz MD Primary Care Provider [phone] Gosia Gonzalez DO Unavailable Shruti Hu RN Unavailable Carson Vang MD Unavailable [phone] System, Provider Not In Unavailable Unavaila [...] LTG 1 Speech Therapy No Savita Boswell, [facility]-NITRATING ACID MIXER Note: Patient and clinician will facilitate changes in vocal function in order to restore functional use of voice for daily occupational, social, and emotional demands. Patient will maximize efficiency of the vocal mechanism relative to existing laryngeal disorder through coordinating subsystems of voice within 12 weeks as evidenced by patient report and NITRATING ACID MIXER observations. Patient will improve coordination of respiration and phonation for efficient vocal production at a conversational level. Patient will implement and adhere to vocal hygiene protocols on a daily basis, including the elimination of phonotraumatic behaviors. ST STG 1 Speech Therapy Savita Raza, [facility]-NITRATING ACID MIXER Note: Patient will complete SOVT exercises and/or [...] on filedocumented in this encounter Care Teams Gold Charmer Relationship Specialty Start Date End Date Belem Diaz MD [address] [place] [address] PCP - General Internal Medicine 02/03/24 Gosia Gonzalez DO [address] [place] [address] Physician Gastroenterology 06/29/24 Shruti Ocasio, RN [address] [place] [address] Nurse Navigator Surgery, Neurosurgery 04/18/25 Carson Vang MD [address] [address] Surgery, Neurosurgery 05/28/25 System, Provider Not In [address] [place] [address] Pulmonary Disease 05/28/25 documented as of this encounter
--- OUTSIDE RECORDS SUMMARY | 2025-09-09 10:06 | XMS_ITS | Data Portability ---
Author Organization [facility] [address] Address [address] [place] [address] Care Team Providers Care Sales Operations Manager Name Role Phone GEORGES KHRIS Primary Care Provider [phone] Assessment No assessment recorded. Plan of Treatment Reminders Order Date Submit Date Provider Last Modified By Organization Details Last Modified Time Details Appointments None recorded. Lab None recorded. Referral None recorded. Procedures None recorded. Surgeries None recorded. Imaging None recorded. Medication Orders triamcinolo ne acetonide 0.1 % topical cream 2022 023 [facility]/Pharmacy #[id number], [address] [place], [address], 09:56:41 Patient TargetsNo targets recorded. Patient Instructions Encounter Date Encounter Id Patient Instructions Last Modified By Organization Details Last Modified Time 07/03/2023 [id number] rash: care instructions Not available 07/03/2023 09:56:40 [...] Address Organization Details Recorded Time Environmental allergy 985902129 Active 2022 SHAYLEE DRINKWINE null, [place] - [facility] 3 09:30:35 Gastroesophage al reflux disease 871539236 Active 2022 SHAYLEE DRINKWINE null, [place] - [facility] 3 09:30:51 Depressive disorder 88222462 Active 2022 SHAYLEE DRINKWINE null, PA - [facility] 3 09:30:58 Anxiety 35409390 Active 2022 SHAYLEE DRINKWINE null, PA - [facility] 3 09:31:06 Esophageal atresia, 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 MEDICATIO N TO BE STARTED AFTER SURGERY [...] Updated DateTime 3 165.1 cm 19.1 kg/m2 64479.1 2 g 9 78 /min 100 % 100 % 16 /min 98.2 [degF] 128/72 mm[Hg] SHAYLEE MARIE PA [email or web address] 3 09:34:55 Social History Question Answer [...] ICD10 Code Diagnosis IMO Codes Diagnosis Note [id number] [address] [place] [address] 03/03/2019 18:49:04 03/03/2019 20:03:19 [id number] [address] [place] [address] 11/07/2021 08:43:57 11/07/2021 10:50:28 [id number] CATRACHO HERNANDEZ MD [address] [place] [address] 07/03/2023 08:56:47 07/03/2023 09:58:00 Localized eruption of skin 737701195 R21 UNSPECIFIE D macular RASH , FADING [...] Mahan Member ID Guarantor Name 07/02/2023 1 [facility] BLUE (MEDICARE REPLACEMENT PPO) [id number] Marilu Sarika [id number] Marilu Sarika Notes Date Note Type [...] Guallpa NP [address] [place], [address], [place] - [facility] 07/03/2023 10:10:42 OBGyn Episode No OBEpisode recorded.
--- OUTSIDE RECORDS SUMMARY | 2025-09-09 10:06 | XMS_ITS | Clinical Summary ---
Author Organization [facility] Address [address] [place] [address] Care Team Providers Care Metallurgical Tester Name Role Phone Belem Diaz MD Primary Care Provider [phone] Gosia Gonzalez DO Unavailable Shruti Hu RN Unavailable [phone] Carson Vang MD Unavailable [phone] System, Provider Not In Unavailable Unavaila [...] to entire affect area. Active Cannabis (MARIJUANA) [facility] Medical Prescription Strength Inhale. [...] 1:40 PM EST Office Visit [facility] [id number] [address] [facility] [address] [place] [address] Dina Dee PA-C S/P cervical spinal fusion (Primary Dx) 09/04/2025 10:00 AM EST Evaluation [facility] [address] [place] [address] iJmmie Boswell MD Marino, Judith A, [facility]-GENETIC COORDINATOR Dysphonia (Primary Dx); Vocal fold edema; Chronic fungal laryngitis 09/04/2025 9:30 AM EST Office Visit [facility] [address] [address] Jimmie Boswell MD Dysphonia (Primary Dx); Vocal cord edema; Chronic fungal laryngitis 09/04/2025 Travel 08/28/2025 1:30 PM EDT Office Visit [facility] [address] [phone] Michele Sinclair MD Dysphonia (Primary Dx); Vocal cord edema 08/27/2025 Scanned Document [facility] Neurosurgery [place] [address] [place] [address] Carson Vang MD 08/23/2025 9:56 AM EDT - 08/23/2025 11:59 PM EDT Hospital Encounter [facility] Radiology [address] [place] [address] Carson Vang MD Foraminal stenosis of cervical region; Cervical radiculopathy; Dysphagia, unspecified type Discharge Disposition: Home or Self Care 08/23/2025 Travel 08/13/2025 10:20 AM EDT Anesthesia Event [facility] Perioperative Surgical Services [address] [place] [address] Mela Roa MD Gonzalez, Kimberly A, CRNA 08/13/2025 10:15 AM EDT - 08/13/2025 1:30 PM EDT Surgery [facility] Per[facility]operative Surgical Services [address] [place] [address] Carson Vang MD C4-5 ACDF 08/13/2025 8:31 AM EDT - 08/13/2025 5:05 PM EDT Hospital Encounter [facility] [address] [place] [address] Carson Vang MD HNP (herniated nucleus pulposus), cervical (Primary Dx) Discharge Disposition: Home or Self Care 08/13/2025 Travel 08/09/2025 10:00 AM EDT Office Visit [facility] Neurosurgery [place] [address] [facility] [address] [place] [address] Carson Vang MD Foraminal stenosis of cervical region (Primary Dx); Cervical radiculopathy; Sacroiliitis; Dysphagia, unspecified type 08/09/2025 Scanned Document [facility] Neurosurgery [place] [address] [place] [address] Carson Vang MD 08/09/2025 Travel 08/07/2025 8:00 AM EDT Office Visit [facility] [place] [address] [facility] [place] [address] Michele Sinclair MD Chronic fungal laryngitis (Primary Dx); Dysphonia; Vocal cord edema 08/02/2025 Scanned Document [facility] Neurosurgery [place] [address] [facility] [address] [place] [address] iDna Dee PA-C 07/26/2025 2:30 PM EDT Pre-Admission Testing [facility] [place] [address] [facility] [address] [place] [address] Sharona Soares, Donya Goel APRN Preop examination [...] ST LTG 1 Speech Therapy Savita Raza, CCC-GENETIC COORDINATOR Note: Patient and clinician will facilitate changes in vocal function in order to restore functional use of voice for daily occupational, social, and emotional demands. Patient will maximize efficiency of the vocal mechanism relative to existing laryngeal disorder through coordinating subsystems of voice within 12 weeks as evidenced by patient report and GENETIC COORDINATOR observations. Patient will improve coordination of respiration and phonation for efficient vocal production at a conversational level. Patient will implement and adhere to vocal hygiene protocols on a daily basis, including the elimination of phonotraumatic behaviors. ST STG 1 Speech Therapy Savita Raza, CCC-GENETIC COORDINATOR Note: Patient will complete SOVT exercises and/or [...] daily basis. Medical Devices Implanted Type Area Roof Truss Machine Tender Device Identifier Shelf Expiration Date Model / Serial / Lot [id number] Cage Spinal 14x7mm Endoskeleton Tc 6d 12mm Sm Ti Radiopaque - [id number] Implanted:Qty: 1 on 08/13/2025 by Carson Vang MD at [facility] Cage N/A: Spine Cervical [employer] MINIMALLY INVASIVE T 12/27/2029 [id number] / / [id number] Plate Spine Cervical Anterior 17mm 1 Lvl Ti Bone Zevo - [id number] Implanted:Qty: 1 on 08/13/2025 by Carson Vang MD at [facility] Plate Spine Cervical [employer] MINIMALLY INVASIVE T [id number] / / [id number] Screw Bone Spine Cervical Anterior Zevo 13mm Ti 3.5mm Va - [id number] Implanted:Qty: 4 on 08/13/2025 by Casron Vang MD at [facility] Spine N/A: Spine Cervical [employer] MINIMALLY INVASIVE T [id number] / / [id number] Dbx Putty 0.5cc - [id number] Implanted:Qty: 1 on 08/13/2025 by Carson Vang MD at [facility] Void Filler N/A: Spine Cervical MUSCULOSKELETAL TRANSPLANT FOU 04/01/2027 [id number] / [id number] / Procedures Procedure Name Priority Date/Time Associated Diagnosis Comments XR CERVICAL SPINE 2 OR 3 VIEWS Routine 09/04/2025 12:30 PM EST S/P cervical spinal fusion CT LUMBAR SPINE W/O CONTRAST Routine 08/26/2025 [...] ANES INTUBATION Routine 08/13/2025 11:01 AM EDT [place] ARTHRD ANT INTERBODY DECOMPRESS CERVICAL BELW C2 [...] Menopause from Last 3 Months Results * XR Cervical spine 2 or 3 views (09/04/2025 12:30 PM EST) Only the most recent of3 resultswithin the time period is included. Anatomical Region Laterality Modality C-spine Computed Radiogr aphy 09/04/2025 1:00 PM EST 09/04/2025 1:00 PM EST Impressions 09/08/2025 2:43 PM EST Postoperative changes. No acute abnormality. Electronically signed by: Kenneth Peña MD 09/08/2025 02:43 PM EST RP Thank you for referring your patient to us, Kenneth Peña MD [phone] (Electronically Signed - 09/08/2025 14:43) Narrative 09/08/2025 [...] Peña MD 09/08/2025 02:43 PM EST RPWorkstation: [id number] Thank you for referring your patient to us, Kenneth Peña MD [phone] (Electronically Signed - 09/08/2025 14:43) Dina Dee PA-C IMG DIAGNOSTIC IMAGING ORDERA BLES Final Result * CT Lumbar spine w/o contrast (08/26/2025 [...] your patient to us, Ladarius Low MD [id number] (Electronically Signed - 09/05/2025 12:35) Copy: PATIENT [...] by: Ladarius Low MD 09/05/2025 12:35 PM [email or web address] Thank you for referring your patient to us, Ladarius Low MD [id number] (Electronically Signed - 09/05/2025 12:35) Copy: PATIENT , Carson Vang MD IMG CT ORDERABLES Final [...] ORDERABLES Sebastián valentina Result - Final * ANES INTUBATION (08/13/2025 11:01 AM EDT) Narrative Belem Denny CRNA - 08/13/2025 11:01 AM EDT Belem Denny CRNA 08/13/2025 11:04 AM Anesthesia Procedure Note - Elective intubation Patient Name: Marilu Baum : 1950 Patient location: OR Procedure indications: airway protection Procedure diagnosis: Anesthesia Performed by: Resident/MACHINE FOLDER Belem Denny CRNA Chart Verification Airway: airway [...] same as baseline Complications: no complications Mela oRa MD [place] ANESTHESIA Final Result * MRI Lumbar spine w/o contrast (08/12/2025 3:03 PM EDT) Anatomical Region Laterality Modality L-spine Magnetic Resonan ce Belem Diaz MD IMG MRI ORDERABLES Final R esult * Electrocardiogram, 12-lead (07/26/2025 2:10 PM EDT) Pathologist [facility] Ventricular rate 64 BPM EKG [facility] Atrial rate 64 BPM EKG [facility] P-R interval 126 ms EKG [facility] QRS duration 76 ms EKG [facility] Q-T interval 420 ms EKG [facility] QTC calculation (Bazett) 434 ms EKG [facility] P axis 71 degrees EKG [facility] R axis 50 degrees EKG [facility] T axis 62 degrees EKG [facility] 07/26/2025 2:10 PM EDT Narrative EKG [facility] - 07/26/2025 2:34 PM EDT Normal sinus rhythm Normal ECG No previous ECGs available Confirmed by MD Mckay Christopher ([id number]) on 07/26/2025 2:34:51 PM Procedure Note Frank Mckay MD - 09/26/2025 Normal sinus rhythm Normal ECG No previous ECGs available Confirmed by MD Mckay Christopher ([id number]) on 07/26/2025 2:34:51 PM Donya tSearns APRN ECG ORDERABLES Final Result Performing Organization Address City/[facility] Co de Phone Number EKG [facility] * Type and Screen (07/26/2025 2:08 PM EDT) ABO/Rh A POSITIVE 07/26/2025 8:42 PM EDT [facility] Antibody Screen NEGATIVE 07/26/2025 8:42 PM EDT [facility] Specimen Expiration 08/25/2025 07/26/2025 8:14 PM EDT [facility] or transfused in last 3 months? NO 07/26/2025 7:55 PM EDT [facility] Blood Bank Comment Second Sample needed for Blood Transfusion 07/26/2025 8:42 PM EDT [facility] Blood Blood specimen / Unknown 07/26/2025 2:08 PM EDT 07/26/2025 7:55 PM EDT Donya Stearns APRN BLOOD BANK TEST ORDERABLES F inal Result Performing Organization Address [facility] [place] [address], [address] [address] * Hemoglobin A1c with Estimated Average Glucose (07/26/2025 2:03 PM EDT) Hemoglobin A1C 5.4 <5.7 % 07/26/2025 9:00 PM EDT [facility] Comment: A1c% Interpretation 5.7 - 6.0 Increase risk of diabetes 6.1 - 6.4 Higher risk of diabetes > or = 6.5 Consistent with diabetes Diabetes Care, 33(Supp 1):S1-S61, 2009 Estimated Average Glucose 108 mg/dL 07/26/2025 9:00 PM EDT [facility] Blood Blood specimen / Unknown 07/26/2025 2:03 PM EDT 07/26/2025 6:57 PM EDT us Donya Stearns INVESTIGATIONS CONSULTANT LAB BLOOD ORDERABLES Final R esult [facility] [address] [place] [address], [facility] [address] [place] [address] * (ABNORMAL) Complete Blood Count, with Differential (07/26/2025 2:03 PM EDT) White Blood Cell Count 8.5 4.0 - 11.0 Thou/uL 07/26/2025 7:24 PM EDT [facility] Platelet Count 261 150 - 450 Thou/uL [facility] Hemoglobin 13.6 11.7 - 15.7 g/dL 07/26/2025 7:[facility] Hematocrit 41.4 35.0 - 47.0 % 07/26/2025 7:24 PM EDT [facility] Red Blood Cell Count 4.12 4.00 - 5.40 Mil/uL 07/26/2025 7:[address] [facility] MCV 101(H) 80 - 100 fL 07/26/2025 7:24 PM EDT [facility] MCH 33.0(H) 27.0 - 31.0 pg 07/26/2025 7:24 [facility] MCHC 32.9 30.0 - 36.0 g/dL 07/26/2025 7:24 PM EDT [facility] RDW 13.2 11.5 - 14.5 % 07/26/2025 7:24 PM EDT [facility] MPV 9.7 7.5 - 12.5 fL 07/26/2025 7:24 [facility] Neutrophils Auto 69.5 % 07/26/20 7:24 PM EDT [facility] Immature Granulocytes 0.4 % 07/26/2025 7:[facility] Lymphocytes Auto 16.8 % 07/26/20 7:24 PM EDT [facility] Monocytes Auto 8.7 % 07/26/2025 7:24 PM EDT [facility] Eosinophils Auto 3.9 % 07/26/20 7:24 PM EDT [facility] Basophils Auto 0.7 % 07/26/2025 7:24 PM EDT [facility] Abs Neutrophils Auto 5.88 2.00 - 7.50 Thou/uL 07/26/2025 7:24 PM EDT [facility] Abs Immature Granulocytes 0.03 0.00 - 0.10 Thou/uL 07/26/2025 7:24 PM EDT [facility] Abs Lymphocytes Auto 1.42(L) 1.50 - 4.50 Thou/uL 07/26/2025 7:24 PM EDT [facility] Abs Monocytes Auto 0.74 0.20 - 1.50 Thou/uL 07/26/2025 7:24 PM EDT [facility] Abs Eosinophils Auto 0.33 0.00 - 0.70 Thou/uL 07/26/2025 7:24 PM EDT [facility] Abs Basophils Auto 0.06 0.00 - 0.20 Thou/uL 07/26/2025 7:24 PM EDT [facility] Blood Blood specimen / Unknown 07/26/2025 2:03 PM EDT 07/26/2025 6:57 PM EDT us Donya Stearns APRN LAB BLOOD ORDERABLES Final R esult Performing Organization Address [facility]/ZIP [place] [address], [address] [address] * Nasal MRSA Screen, PCR (07/26/2025 2:03 PM EDT) Pathologist [facility] MRSA Result Not Detected Not Detected 9:23 PM EDT [facility] Comment:Performed by the Xpe rt MRSA NxG Assay Swab, Nasal Specimen from nose / Unknown 07/26/2025 2:03 PM EDT 07/26/2025 6:56 PM EDT us Donya Stearns APRN MICROBIOLOGY - GENERAL ORDER ZA Final Result Performing Organization Address City/[facility]/ZIP Co de Phone Number [address] [address], [address] [address] * Partial Thromboplastin Time (PTT) (07/26/2025 2:03 PM EDT) Anticoagulant Information not given 07/26/2025 9:52 AM EDT [facility] Partial Thromboplastin Time (PTT) 28 25 - 36 seconds 07/26/2025 7:36 PM EDT [facility] Blood Blood specimen / Unknown 07/26/2025 2:03 PM EDT 07/26/2025 6:57 PM EDT Donya Stearns APRN LAB BLOOD ORDERABLES Final R esult Performing Organization Address City/[facility]/ZIP [place] [address], [address] [address] * Protime-INR (07/26/2025 2:03 PM EDT) [facility] Anticoagulant Information not given 07/26/2025 9:52 AM EDT [facility] Prothrombin Time (PT) 10.1 10.0 - 13.5 seconds 07/26/2025 7:36 PM EDT [facility] INR 0.9 07/26/2025 7:36 PM EDT [facility] Comment:INR Therapeutic Rang es: Standard dose anticoagulant 2.0 to 3.0, High dose anticoagulant 2.5-3.5. Blood Blood specimen / Unknown 07/26/2025 2:03 PM EDT 07/26/2025 6:57 PM EDT Donya Stearns APRN LAB BLOOD ORDERABLES Final R esult [address] [address], [address] [address] * Transferrin (07/26/2025 2:03 PM EDT) [facility] Transferrin 215 200 - 360 mg/dL 07/26/2025 7:41 PM EDT [facility] Blood Blood specimen / Unknown 07/26/2025 2:03 PM EDT 07/26/2025 6:57 PM EDT Donya Stearns INVESTIGATIONS CONSULTANT LAB BLOOD ORDERABLES Final R esult Performing Organization Address City/[facility]/ZIP [place] [address], [place] [address] * Prealbumin (07/26/2025 2:03 PM EDT) Prealbumin 25 20 - 40 mg/dL 07/26/2025 7:41 PM EDT [facility] Blood Blood specimen / Unknown 07/26/2025 2:03 PM EDT 07/26/2025 6:57 PM EDT Donya Stearns APRN LAB BLOOD ORDERABLES [place] [address], [place] [address] * Comprehensive Metabolic Panel (07/26/2025 2:03 PM EDT) Glucose 88 65 - 99 mg/dL 07/26/2025 7:41 PM EDT [facility] Comment:Fasting: <100 mg/dL, Non-Fasting: <200 mg/dL (ADA 2005) Blood Urea Nitrogen (BUN) 19 8 - 21 mg/dL 07/26/2025 7:41 PM EDT [facility] Creatinine 0.89 0.40 - 1.10 mg/dL 07/26/2025 7:41 PM EDT [facility] eGFR 68 >59 07/26/2025 7:41 PM T [facility] Comment:CKD-EPI (2020) in mL /min/1.73 sq meters. Sodium 140 136 - 145 mmol/L 07/26/2025 7:41 PM EDT [facility] Potassium 3.8 3.4 - 5.3 mmol/L 07/26/2025 7:41 PM EDT [facility] Chloride 103 98 - 107 mmol/L 07/26/2025 7:41 PM EDT [facility] CO2 25 22 - 33 mmol/L 07/26[facility]2025 7:[facility] Calcium 9.2 8.7 - 10.5 mg/dL 07/26/2025 7:41 PM [facility] Alkaline Phosphatase 71 32 - 122 U/L 07/26/2025 7:41 PM EDT [facility] Aspartate Aminotrans (AST) 33 10 - 50 U/L 07/26/2025 7:41 PM EDT [facility] Alanine Aminotrans (ALT) 27 10 - 50 U/L 07/26/2025 7:41 PM EDT [facility] Bilirubin, Total 0.2 0.2 - 1.0 mg/dL 07/26/2025 7:41 PM EDT [facility] Protein, Total 6.9 6.3 - 8.3 g/dL 07/26/2025 7:41 PM EDT [facility] Albumin 4.0 3.4 - 4.8 g/dL 07/26/2025 7:41 PM EDT [facility] BUN/Creatinine Ratio 21 10.0 - 25.0 Ratio 07/26/2025 7:[address] [facility] Globulin 2.9 1.5 - 3.9 g/dL 07/26/2025 7:41 PM [facility] Albumin/Globulin Ratio 1.4 1.0 - 3.0 Ratio 07/26/2025 7:41 [facility] Anion Gap 12 7 - 17 07/26/2025 7:41 PM EDT [facility] Blood Blood specimen / Unknown 07/26/2025 2:03 PM EDT 07/26/2025 6:57 PM EDT us Donya Stearns INVESTIGATIONS CONSULTANT LAB BLOOD ORDERABLES Final R esult [address] [address], [address] [address] from Last 3 Months Insurance [facility] Advance Directives * Full Code (Latest Code Status on File) Date Activated Date Inactivated Comments 08/13/2025 2:08 PM * Full Code Date Activated Date Inactivated Comments 08/13/2025 8:34 AM 08/13/2025 2:08 PM Care Teams Metallurgical Tester Relationship Specialty Start Date End Date Belem Diaz MD [address] [place] [address] PCP - General Internal Medicine 02/03/24 Gosia Gonzalez DO [address] [place] [address] [place] [address] Physician Gastroenterology 06/29/24 Shruti Ocasio, CHERRY [address] [place] [address] Nurse Navigator Surgery, Neurosurgery 04/18/25 Carson Vang MD [address] [address] Surgery, Neurosurgery 05/28/25 System, Provider Not In [address] [place] [address] Pulmonary Disease 05/28/25
--- OUTSIDE RECORDS SUMMARY | 2025-09-09 10:06 | XMS_ITS | Encounter Summary ---
Author Organization [facility] Address [address] [place] [address] Care Team Providers Care Track Laying Equipment Operator Name Role Phone Belem Diaz MD Primary Care Provider [phone] Gosia Gonzalez DO Unavailable Shruti Hu RN Unavailable Carson Vang MD Unavailable [phone] System, Provider Not In Unavailable Unavaila ble Encounter Details Date Type Department Care Team (Late st Contact Info) Description 08/27/2025 Scanned Document [facility] Neurosurgery [place] [address] [facility] [address] [place] [address] Carson Vang MD [address] [facility] [place] [address] [place] [address] Social History Tobacco Use Types Packs/Day Years [...] on filedocumented in this encounter Care Teams Track Laying Equipment Operator Relationship Specialty Start Date End Date Belem Diaz MD [address] [place] [address] PCP - General Internal Medicine 02/03/24 Gosia Gonzalez DO 6 [facility] [place] [place] [address] Physician Gastroenterology 06/29/24 Shruti Ocasio RN [address] [place] [address] Nurse Navigator Surgery, Neurosurgery 04/18/25 Carson Vang MD [address] [place] [address] Surgery, Neurosurgery 05/28/25 System, Provider Not In [address] [place] [address] Pulmonary Disease 05/28/25 documented as of this encounter
--- OUTSIDE RECORDS SUMMARY | 2025-09-09 10:06 | XMS_ITS | Encounter Summary ---
Author Organization [facility] Address [address] [place] [address] Care Team Providers Care Controller [place] Name Role Phone Belem Diaz MD Primary Care Provider [phone] Gosia Gonzalez DO Unavailable Shruti Hu RN Unavailable Carson Vang MD Unavailable [phone] System, Provider Not In Unavailable Unavaila ble Encounter Details Date Type Department Care Team (Late st Contact Info) Description 08/02/2025 Scanned Document [facility] Neurosurgery [place] 85 [facility] [address] [place] [address] Dina Dee, PA-C 85 [facility] [address] [place] [address] Social History Tobacco Use Types Packs/Day Years [...] on filedocumented in this encounter Care Teams Controller [place] Relationship Specialty Start Date End Date Belem Diaz MD [address] [place] [address] PCP - General Internal Medicine 02/03/24 Gosia Gonzalez DO 6 [facility] [place] [address] Physician Gastroenterology 06/29/24 Shruti Ocasio RN [address] [place] [address] Nurse Navigator Surgery, Neurosurgery 04/18/25 Carson Vang MD [address] [place] [address] Surgery, Neurosurgery 05/28/25 System, Provider Not In [address] [place] [address] Pulmonary Disease 05/28/25 documented as of this encounter
[2025-09-09 13:23] LABS: MANUAL DIFF FLAG NO
[2025-09-09 13:31] LABS: Hematocrit 43.0 % (37.0-47.0); Hemoglobin 13.9 g/dl (12.0-16.0); Imm Gran Abs Auto 0.02 X10*3/uL (0.00-0.03); Imm Gran Pct Auto 0.4 % (0.0-0.4); Lymphocytes Absolute Auto 1.6 X10*3/uL (1.2-4.9); Mean Corpuscular HGB Conc 32.3 g/dl (31.0-35.0); Mean Corpuscular Hemoglobin 32.1 pg (27.0-33.0); Mean Corpuscular Volume 99.3 fL (80.0-98.0); NRBC Abs Auto 0.000 X10*3/uL (0.0-0.012); NRBC Pct Auto 0.0 /100WBC (0.0-0.2); Platelet Count 316 X10*3/uL (160-400); Red Blood Count 4.33 X10*6/uL (4.20-5.50); White Blood Count 5.0 X10*3/uL (4.8-10.8)
[2025-09-09 14:18] LABS: Alanine Aminotransferase 35 U/L (0-31); Albumin Level 4.3 g/dL (3.5-5.0); Alkaline Phosphatase 71 U/L (39-117); Anion Gap 9 (12-20); Aspartate Amino Transferase 41 U/L (5-31); Blood Urea Nitrogen 14 mg/dL (9-16); Calcium 9.4 mg/dL (8.4-10.2); Carbon Dioxide 28 mmol/L (22-29); Chloride 107 mmol/L (96-108); Cholesterol 243 mg/dL (<200); Estimated Glomerular Filt Rate 57; HDL Cholesterol 63 mg/dL (>40); Potassium 4.1 mmol/L (3.3-5.1); Sodium 140 mmol/L (135-145); Total Protein 6.5 g/dL (6.5-8.0); Triglycerides 143 mg/dL (<150)
== END 2025-09-09 09:15 | disposition home or self-care (01) ==
LOC: HO.HKASLDS 09:14
PROVIDERS: PCP Internal Medicine; Visit Provider Internal Medicine
DX: Z00.00 Encounter for general adult medical examination without abnormal findings (principal); Z13.6 Encounter for screening for cardiovascular disorders
CPT/HCPCS: 36415; 80053; 80061; 85025